=== PATIENT | female | born 1975 | race Caucasian/White ===

== ENCOUNTER → 2020-10-04 07:52 | Outpatient (BNVA) | payer OTHER, SELFPAY | PROVIDERS: PCP Internal Medicine; Referring Provider Internal Medicine; Visit Provider Surgery | DX: Z76.89 Persons encountering health services in other specified circumstances (principal) ==

== ENCOUNTER 2020-10-09 09:17 | Outpatient (REF) | payer OTHER, SELFPAY ==
--- NOTE | 2020-10-09 09:50 | ECG_ITS ---
Test Reason : MORBID OBESITY Blood Pressure : / mmHG Vent. Rate : 059 BPM Atrial Rate : 059 BPM P-R Int : 150 ms QRS Dur : 100 ms QT Int : 426 ms P-R-T Axes : 035 036 019 degrees QTc Int : 421 ms Sinus bradycardia Otherwise normal ECG No previous ECGs available Referred By: Alirio Brock Electronically Signed By:LAMONTE ACEVEDO MD
[2020-10-09 10:18] LABS: MANUAL DIFF FLAG NO
--- NOTE | 2020-10-09 10:19 | XR_ITS ---
EXAMINATION: XR CHEST CLINICAL INFORMATION: Morbid obesity COMPARISON: None TECHNIQUE: 2 views of the chest were obtained. FINDINGS: The cardiac and mediastinal contours are normal. The lungs are clear. There is no pleural effusion or pneumothorax. There are degenerative changes of the spine. XR/XR chest 2V IMPRESSION: No evidence for acute disease in the chest.
[2020-10-09 10:24] LABS: Basophils Absolute Auto 0.1 X10*3/uL (0.0-0.2); Basophils Percent Auto 0.6 % (0-2); Eosinophils Absolute Auto 0.4 X10*3/uL (0.0-0.4); Eosinophils Percent Auto 3.5 % (0-4); Hematocrit 42.5 % (37-47); Hemoglobin 13.6 g/dl (12.0-16.0); Imm Gran Abs Auto 0.04 X10*3/uL (0.00-0.03); Imm Gran Pct Auto 0.4 % (0.0-0.4); Lymphocytes Absolute Auto 2.9 X10*3/uL (1.2-4.9); Lymphocytes Percent Auto 28.1 % (20-40); Mean Corpuscular Volume 81.3 fL (80-98); Mean Platelet Volume 9.6 fL (9.4-12.3); Monocytes Absolute Auto 0.9 X10*3/uL (0.1-1.2); Monocytes Percent Auto 8.3 % (2-11); Neutrophils Absolute Auto 6.1 X10*3/uL (2.0-8.3); Neutrophils Percent Auto 59.1 % (45-73); Platelet Count 270 X10*3/uL (160-400); Red Blood Count 5.23 X10*6/uL (4.20-5.50); Red Cell Distribution Width 14.1 % (11.0-16.0); White Blood Count 10.3 X10*3/uL (4.8-10.8)
[2020-10-09 11:06] LABS: Alanine Aminotransferase 50 U/L (0-31); Albumin Level 4.3 g/dL (3.5-5.0); Alkaline Phosphatase 87 U/L (39-117); Anion Gap 13 (12-20); Aspartate Amino Transferase 39 U/L (5-31); Bilirubin Total 0.6 mg/dL (0.0-1.0); Blood Urea Nitrogen 13 mg/dL (9-16); C Reactive Protein 4.51 mg/dL (< or = 0.50); Carbon Dioxide 29 mmol/L (22-29); Chloride 102 mmol/L (96-108); Cholesterol 150 mg/dL; Estimated Glomerular Filt Rate > 60; Glucose Random 89 mg/dL (60-115); HDL Cholesterol 36 mg/dL; Iron 41 mcg/dL (30-160); LDL Cholesterol Calculated 102 mg/dl; Percent Iron Saturation 14 % (15-50); Sodium 140 mmol/L (135-145); Total Iron Binding Capacity 289 mcg/dL (228-428); Triglycerides 61 mg/dL; Unsaturated Iron Binding 248 ug/dL
[2020-10-09 11:28] LABS: Ferritin 387 ng/mL (10-250); TSH reflex Free T4 0.99 mIU/mL (0.32-4.0)
[2020-10-09 11:30] LABS: Estimated Average Glucose 123 mg/dL; Hemoglobin A1c % 5.9 %
[2020-10-09 12:03] LABS: Folate > 20.0 ng/mL (> or = 4.0); Vitamin B12 505 pg/mL (200-900)
[2020-10-10 12:17] LABS: Insulin Level Total 6.6 uIU/mL
[2020-10-12 02:41] LABS: Zinc 92 mcg/dL (60-130)
[2020-10-14 02:47] LABS: Vitamin A 49 mcg/dL (38-98)
[2020-10-16 19:09] LABS: Vitamin B1 13 nmol/L (8-30)
== END 2020-10-09 09:18 | disposition home or self-care (01) ==
LOC: HO.LAB 09:17
PROVIDERS: PCP Internal Medicine; Visit Provider Surgery
DX: E66.01 Morbid (severe) obesity due to excess calories (principal); I10 Essential (primary) hypertension; J45.909 Unspecified asthma, uncomplicated
CPT/HCPCS: 36415; 71046; 80053; 80061; 82607; 82728; 82746; 83036; 83525; 83540; 84425; 84443; 84590; 84630; 85025; 86140; 93005

== ENCOUNTER → 2020-10-13 08:20 | Outpatient (BNVA) | payer OTHER, SELFPAY | PROVIDERS: PCP Internal Medicine; Referring Provider Internal Medicine; Visit Provider Dietitian, Registered | DX: Z76.89 Persons encountering health services in other specified circumstances (principal) ==

== ENCOUNTER → 2020-10-23 07:31 | Outpatient (BNVA) | payer OTHER, SELFPAY | PROVIDERS: PCP Internal Medicine; Visit Provider Surgery | DX: Z76.89 Persons encountering health services in other specified circumstances (principal) ==

== ENCOUNTER 2020-10-31 08:28 | Outpatient (REF) | payer OTHER, SELFPAY ==
--- NOTE | 2020-10-31 08:31 | FL_ITS ---
EXAMINATION: XR GI SERIES CLINICAL INFORMATION: Preop gastric sleeve. Obesity. COMPARISON: None TECHNIQUE: Upper GI was performed using thick barium and effervescent granules. FINDINGS: Esophageal motility is normal. There is a small hiatal hernia and Schatzki ring. There is gastroesophageal reflux. The stomach and duodenum are normal-appearing. No fold thickening, mass, ulcer or stricture is seen. FLUOROSCOPY TIME: 0.6 minutes DOSE AREA PRODUCT: 7.6 ramos per centimeter squared. 28 saved fluoroscopic images. FL/FL upper GI series IMPRESSION: Small hiatal hernia with Schatzki ring. Gastroesophageal reflux.
--- NOTE | 2020-10-31 08:33 | US_ITS ---
EXAMINATION: US COMPLETE ABDOMEN WITH LIVER ELASTOGRAPHY CLINICAL INFORMATION: Moderate severe obesity DEXA scan arteries. COMPARISON: None. TECHNIQUE: Real-time imaging of the abdominal viscera. Noninvasive ultrasound liver fibrosis assessment is performed using Lora ElastPQ point quantification shear wave elastography (pSWE) with a 5 MHz transducer. Multiple elastography samples are obtained. FINDINGS: PANCREAS: The visualized pancreatic head and body are normal in appearance. The tail of the pancreas is obscured from visualization by the overlying bowel gas. ABDOMINAL AORTA: The proximal, middle, and distal aortic segments are normal in caliber. INFERIOR VENA CAVA: Visualized portions are normal. LIVER: The liver demonstrates normal size, contour and increased echogenicity. No focal lesion or intrahepatic biliary duct dilatation. The right lobe measures 14.2 cm in length. The left lobe measures 11.3 cm in length. There is normal hepatopedal flow seen in the portal vein on Doppler exam. Shear wave elastography provides a median stiffness of 1.48 m/s (reference: normal median stiffness is 0.81 - 1.22 m/s). The IQR/median stiffness to assess sampling precision is 0.20 (reference: optimal IQR/median stiffness is under 0.3). GALLBLADDER: The bladder has been surgically removed. COMMON BILE DUCT: Normal in caliber measuring 0.5 cm in diameter. RIGHT KIDNEY: Normal. No hydronephrosis. No renal calculi or focal parenchymal lesions. The kidney measures 11.6 cm in maximum dimension. LEFT KIDNEY: Normal. No hydronephrosis. No renal calculi or focal parenchymal lesions. The kidney measures 11.5 cm in maximum dimension. SPLEEN: Normal. The spleen measures 11.0 cm in maximum dimension. FREE FLUID: None. US/US abdomen comp w elastography IMPRESSION: 1. Hepatic steatosis without focal lesion. Rest of the abdominal ultrasound is unremarkable. 2. Elastography: [id number] fibrosis with score F2-F3.
--- NOTE | 2020-10-31 09:48 | CA_ITS ---
Transthoracic Echocardiogram Patient (Last, First, Middle): Nora Wayne, Gender: Female Date of : 1975 Age: 45 Procedure Date: 10/31/2020 Procedure Type: Transthoracic Echocardiogram Location: OP Height: 157.48 cm Weight: 107.05 kg BSA: 2.05 m2 Heart Rate: bpm BP: 143 / 85 mmHg Primary Health Care Nurse: URI Referring MD: Alirio Brock MD Base Brander: Ottoniel Turner MD Symptoms: E66.01 - Morbid (severe) obesity due to excess calories Study Quality: Fair ECG Rhythm: Sinus Conclusions: - Essentially normal study Findings Left Ventricle Normal left ventricular size, thickness, and systolic function. The visually estimated ejection fraction is between 60-65%. Diastolic function is normal for age. Right Ventricle Normal right ventricular cavity size and systolic function. Atria Both atria are normal in size. Interatrial shunt cannot be excluded. Aortic Valve The aortic valve structure and function is likely normal. There is no aortic valve stenosis. There is no aortic valve regurgitation. Mitral Valve Normal mitral valve structure and function. There is no mitral valve regurgitation. There is no mitral valve stenosis. Pulmonic Valve The pulmonic valve was not well visualized. Tricuspid Valve Likely normal tricuspid valve structure and function. There is trace tricuspid valve regurgitation. The right ventricular systolic pressure is normal. The right ventricular systolic pressure is 23 mmHg. Normal right atrial pressure. There is no evidence of pulmonary hypertension. Great Vessels All visible segments of the aorta are normal in size. The pulmonary artery was not well visualized. Venous The inferior vena cava is normal in size and collapses greater than 50% with inspiration. Pericardium/Pleural There is no evidence of pericardial effusion. Prior Study Comparison No prior study available for comparison. Measurements 2D Linear Measurements IVSd: 1.10 0.6-0.9/0.6-1.0 cm LVIDd: 4.14 3.9-5.3/4.2-5.9 cm LVIDd Index: 2.02 2.4-3.2/2.2-3.1 cm/m2 LVIDs: 2.52 2.0-3.6 cm LVPWd: 1.00 0.7-1.1 cm LA Diam: 3.70 2.7-3.8/3.0-4.0 cm LAIDs Index: 1.80 1.5-2.3 cm/m2 LV Mass: 178.65 67-162/88-224 g LV Mass Index: 87.15 43-95/49-115 g/m2 LVOT Diam: 2.00 3.0+(-)1.3 cm 2D Systolic Function EF 4C: 61.70 >55% EF 2C: 61.40 >55% EF BiP: 61.70 >55% Mitral Valve MV Pk E: 0.99 MV PK A: 0.88 MV Decel Time: 256.00 E/A: 1.10 E'Lateral: 8.03 E'Medial: 8.90 E/E' Med: 11.10 E/E' Lat: 12.30 PHT: 75.00 MVA PHT: 2.93 Decel Baker: 3.84 Aortic Valve AoV Pk Vinny: 1.64 AoV Pk Grad: 11.00 LVOT LVOT Pk Vinny: 1.14 LVOT Mn Vinny: 0.77 LVOT VTI: 0.26 LVOT Pk Grad: 5.00 LVOT Mn Grad: 3.00 LVOT Diam: 2.00 LVOT Area: 3.14 Diastolic Function MV Pk E: 0.99 MV Pk A: 0.88 E/A: 1.10 E'Medial: 8.90 E/E' Med: 11.10 E' Laterial: 8.03 E/E' Lat: 12.30 Tricuspid Valve TR Pk Vinny: 2.23 TR Pk Grad: 20.00 RA Press: 3.00 RVSP: 23.00 Great Vessels Aorta Ao Asc: 2.90 2.1-3.4 cm Updated in Other Vendor System with Status of Final Ottoniel Turner MD electronically signed on 11/01/2020 3:47:57 PM with status of Final
== END 2020-10-31 08:29 | disposition home or self-care (01) ==
LOC: HO.US 08:28
PROVIDERS: PCP Internal Medicine; Visit Provider Surgery
DX: Z01.818 Encounter for other preprocedural examination (principal); I10 Essential (primary) hypertension; J45.909 Unspecified asthma, uncomplicated; E66.01 Morbid (severe) obesity due to excess calories
CPT/HCPCS: 74240; 76705; 76981; 93306

== ENCOUNTER → 2020-11-03 08:35 | Outpatient (BNVA) | payer OTHER, SELFPAY | PROVIDERS: PCP Internal Medicine; Referring Provider Internal Medicine; Visit Provider Dietitian, Registered | DX: Z76.89 Persons encountering health services in other specified circumstances (principal) ==

== ENCOUNTER 2020-11-06 08:13 | Outpatient (REF) | payer OTHER, SELFPAY ==
[2020-11-08 18:57] LABS: H Pylori Breath Test NOT DETECTED (NOT DETECTED)
== END 2020-11-06 08:14 | disposition home or self-care (01) ==
LOC: HO.LNP 08:13
PROVIDERS: PCP Internal Medicine; Visit Provider Physician Assistant
DX: A04.8 Other specified bacterial intestinal infections (principal)
CPT/HCPCS: 83013

== ENCOUNTER → 2020-11-15 08:24 | Outpatient (BNVA) | payer OTHER, SELFPAY | PROVIDERS: PCP Internal Medicine; Visit Provider Surgery | DX: Z76.89 Persons encountering health services in other specified circumstances (principal) ==

== ENCOUNTER → 2020-11-29 08:19 | Outpatient (BNVA) | payer OTHER, SELFPAY | PROVIDERS: PCP Internal Medicine; Visit Provider Surgery | DX: Z76.89 Persons encountering health services in other specified circumstances (principal) ==

== ENCOUNTER 2020-11-30 07:56 | Outpatient (REF) | payer OTHER, SELFPAY ==
[2020-11-30 08:33] LABS: MANUAL DIFF FLAG NO
[2020-11-30 08:35] LABS: Basophils Percent Auto 0.3 % (0-2); Eosinophils Absolute Auto 0.3 X10*3/uL (0.0-0.4); Eosinophils Percent Auto 3.4 % (0-4); Hemoglobin 13.8 g/dl (12.0-16.0); Imm Gran Abs Auto 0.04 X10*3/uL (0.00-0.03); Imm Gran Pct Auto 0.4 % (0.0-0.4); Lymphocytes Absolute Auto 2.2 X10*3/uL (1.2-4.9); Lymphocytes Percent Auto 23.3 % (20-40); Mean Corpuscular HGB Conc 31.4 g/dl (31.0-35.0); Mean Corpuscular Hemoglobin 25.5 pg (27.0-33.0); Mean Corpuscular Volume 81.3 fL (80-98); Mean Platelet Volume 10.4 fL (9.4-12.3); Monocytes Absolute Auto 0.7 X10*3/uL (0.1-1.2); Monocytes Percent Auto 7.5 % (2-11); Neutrophils Absolute Auto 6.3 X10*3/uL (2.0-8.3); Neutrophils Percent Auto 65.1 % (45-73); Platelet Count 263 X10*3/uL (160-400); Red Blood Count 5.41 X10*6/uL (4.20-5.50); Red Cell Distribution Width 14.3 % (11.0-16.0); White Blood Count 9.6 X10*3/uL (4.8-10.8)
[2020-11-30 08:44] LABS: Estimated Average Glucose 108 mg/dL; Hemoglobin A1c % 5.4 %
[2020-11-30 08:47] LABS: INTERNATIONAL NORM RATIO 1.1 (0.9-1.1); Prothrombin Time 13.2 SEC (10.8-13.0)
[2020-11-30 08:50] LABS: Partial Thromboplastin Time 36.2 SEC (24.1-38.0)
[2020-11-30 09:40] LABS: Alanine Aminotransferase 37 U/L (0-31); Albumin Level 4.2 g/dL (3.5-5.0); Alkaline Phosphatase 86 U/L (39-117); Anion Gap 12 (12-20); Aspartate Amino Transferase 30 U/L (5-31); Bilirubin Total 0.5 mg/dL (0.0-1.0); Blood Urea Nitrogen 13 mg/dL (9-16); C Reactive Protein 4.01 mg/dL (< or = 0.50); Calcium 9.1 mg/dL (8.4-10.2); Carbon Dioxide 32 mmol/L (22-29); Chloride 102 mmol/L (96-108); Cholesterol 140 mg/dL; Estimated Glomerular Filt Rate > 60; Glucose Random 115 mg/dL (60-115); HDL Cholesterol 32 mg/dL; LDL Cholesterol Calculated 86 mg/dl; Potassium 4.2 mmol/l (3.3-5.1); Sodium 142 mmol/L (135-145); Total Protein 6.8 g/dL (6.5-8.0); Triglycerides 110 mg/dL
[2020-11-30 09:54] LABS: TSH reflex Free T4 1.49 mIU/mL (0.32-4.0)
[2020-12-01 09:22] LABS: Insulin Level Total 11.6 uIU/mL
== END 2020-11-30 07:57 | disposition home or self-care (01) ==
LOC: HO.LAB 07:56
PROVIDERS: PCP Internal Medicine; Visit Provider Surgery
DX: I10 Essential (primary) hypertension (principal); K21.9 Gastro-esophageal reflux disease without esophagitis; G47.30 Sleep apnea, unspecified; E66.01 Morbid (severe) obesity due to excess calories
CPT/HCPCS: 36415; 80053; 80061; 83036; 83525; 84443; 85025; 85610; 85730; 86140

== ENCOUNTER 2020-12-07 06:25 | Inpatient (IN) | payer OTHER, SELFPAY ==
[2020-11-28 10:47] VITALS: BMI 41.7
--- NOTE | 2020-12-05 14:56 | P.CONAN_ITS ---
Documented by User: Daisy Rosetta 12/05/20 14:58 HPI - Anesthesia Eval Consult details Narrative: 45yo F for Gastrectomy Sleeve PMFSH Past Medical History Medical History Arthritis Asthma Back pain Degenerative joint disease Depression GERD (gastroesophageal reflux disease) History of anxiety Hypertension Positive H. pylori test Sleep apnea with use of continuous positive airway pressure (CPAP) Family History Family History Mother Asthma Hypertension Diabetes HX: breast cancer Father No problems noted. Sister No problems noted. Daughter No problems noted. Son Asthma Surgical History Surgical History H/O umbilical hernia repair History of endometrial ablation Hx of section Hx of cholecystectomy Morbid obesity Social History Social History Household Members: Family Are you a primary healthcare account manager to a significant other at home: No Do you presently have visiting nurse or other home services: No Alcohol intake: current Alcohol intake frequency: a few times a month Smoking Status: Never smoker Use of substances other than those prescribed or required for medical reasons: No Have you been hit, kicked, punched, or otherwise hurt by someone within the past year? If so, by whom?: No Advance Directives: No Advance Directives Information Provided: No Recently lost weight without trying: No Meds Allergies Allergy/AdvReac Type Severity Reaction Status Date / Time No Known Allergies Allergy Verified 11/29/20 11:16 Home Medications Medication Instructions Recorded Confirmed Type albuterol sulfate 90 mcg/actuation 2 puff INHALATION Q6H PRN 10/04/20 11/28/20 History aerosol inhaler loratadine 10 mg capsule 10 mg PO DAILY 10/04/20 11/28/20 History multivitamin,au-xslu-flebiabl 1 tab PO DAILY 10/04/20 11/28/20 History nebivolol 10 mg tablet 10 mg PO DAILY 10/04/20 11/28/20 History venlafaxine 150 mg 150 mg PO DAILY 10/04/20 11/28/20 History capsule,extended release 24 hr Exam Exam Date and Time: December 05, 2020 1456 Height,Weight and Vital Signs: Height 5 ft 2 in Weight 103.419 kg Pertinent Lab Results Pertinent Lab Results: Laboratory Tests 11/30/20 08:10 Blood Type O Positive Antibody Screen NEGATIVE Laboratory Tests 11/30/20 11/30/20 11/30/20 08:10 08:10 08:10 WBC 9.6 Hgb 13.8 Hct 44.0 Plt Count 263 PT 13.2 H INR 1.1 APTT 36.2 Sodium 142 Potassium 4.2 Chloride 102 Carbon Dioxide 32 H BUN 13 Creatinine 0.68 Hemoglobin A1c % TSH 1.49 11/30/20 08:10 WBC Hgb Hct Plt Count PT INR APTT Sodium Potassium Chloride Carbon Dioxide BUN Creatinine Hemoglobin A1c % 5.4 TSH Narrative Narrative: EKG SB@59 ECHO: essentially nml study Assessment and Plan Assessment Anesthesia Assessment: Chart Reviewed Documented by User: Emery Andre MD 12/07/20 07:55 PMFSH Past Medical History Medical History Arthritis Asthma Back pain Degenerative joint disease Depression GERD (gastroesophageal reflux disease) History of anxiety Hypertension Positive H. pylori test Sleep apnea with use of continuous positive airway pressure (CPAP) Family History Family History Mother Asthma Hypertension Diabetes HX: breast cancer Father No problems noted. Sister No problems noted. Daughter No problems noted. Son Asthma Surgical History Surgical History H/O umbilical hernia repair History of endometrial ablation Hx of section Hx of cholecystectomy Morbid obesity Social History Social History Household Members: Family Are you a primary healthcare account manager to a significant other at home: No Do you presently have visiting nurse or other home services: No Alcohol intake: current Alcohol intake frequency: a few times a month Smoking Status: Never smoker Use of substances other than those prescribed or required for medical reasons: No Have you been hit, kicked, punched, or otherwise hurt by someone within the past year? If so, by whom?: No Advance Directives: No Advance Directives Information Provided: No Recently lost weight without trying: No Meds Allergies Allergy/AdvReac Type Severity Reaction Status Date / Time No Known Allergies Allergy Verified 11/29/20 11:16 Home Medications Medication Instructions Recorded Confirmed Type albuterol sulfate 90 mcg/actuation 2 puff INHALATION Q6H PRN 10/04/20 11/28/20 History aerosol inhaler loratadine 10 mg capsule 10 mg PO DAILY 10/04/20 11/28/20 History multivitamin,hf-whin-tioeofms 1 tab PO DAILY 10/04/20 11/28/20 History nebivolol 10 mg tablet 10 mg PO DAILY 10/04/20 11/28/20 History venlafaxine 150 mg 150 mg PO DAILY 10/04/20 11/28/20 History capsule,extended release 24 hr Exam Airway Mallampati Class: II TM Dist: >3cm Neck ROM: Full Loose/Missing/Broken Teeth: No Heart: RRR Lungs: NL Other: AO Assessment and Plan Assessment Anesthesia Assessment: Anesthesia Plan Discussed Final Anesthetic Review NPO: Yes ASA Class: III Final Preanesthetic Review: No Changes in Pt Med Stat, Meds/Allgs Chart Reviewed, Consent Obtained/Reviewed and Anes Risks/Benef Reviewed Patient Risk: Intermediate Procedure Risk: Intermediate Anesthetic Plan Anesthetic Plan: GA Disposition: Standard PACU
[2020-12-07] VITALS (22 sets, daily range): BP systolic 107–142; BP diastolic 63–102; PULSE 54–80; RESP 12–18; TEMP 36.2–36.8; O2SAT 92–100
--- NOTE | 2020-12-07 | XR_ITS ---
EXAMINATION: XR CHEST CLINICAL INFORMATION: Hypoxia COMPARISON: Chest radiographs 10/09/2020 TECHNIQUE: Portable upright AP view of the chest was obtained. FINDINGS: There is coarsening of the bronchiolar markings. There are questionable early groundglass opacity left perihilar region. There is no lobar or segmental airspace consolidation or effusion. The vascularity is normal. The heart is within normal size. The hilar and mediastinal contours are unremarkable. No visible acute bony abnormality. XR/XR chest 1V IMPRESSION: 1. Coarsening bronchiolar markings with questionable early groundglass opacity left perihilar region. Finding could be related to viral pneumonia. 2. No lobar or segmental airspace consolidation or effusion.
--- NOTE | 2020-12-07 | CT_ITS ---
EXAMINATION: CT ANGIOGRAM OF THE CHEST WITH AND WITHOUT CONTRAST (CT PULMONARY ANGIOGRAM FOR PE) CLINICAL INFORMATION: Rule out PE, evaluate for viral PNA based on CXR/ground glass . History of sleeve gastrostomy this morning. COMPARISON: Question of PE and viral pneumonia. TECHNIQUE: Prior to contrast administration, noncontrast localization images were obtained. Subsequently, multidetector volumetric imaging was performed from the thoracic inlet to below the diaphragms following the administration of 80 mL Omnipaque 350 intravenous contrast. No contrast reaction reported. Sagittal, coronal, and MIP oblique sagittal reformatted images were obtained on the CT workstation, uploaded to PACS, and reviewed. This CT examination was performed using dose optimization techniques as appropriate, variously including the following: *Automated exposure control *Adjustment of mA and/or kV according to patient size (this includes techniques or standardized protocols for targeted exams where dose is matched to indication/reason for exam; i.e. extremities or head) *Use of iterative reconstruction technique Total exam dose-length product 369 mGy-cm. FINDINGS: QUALITY OF STUDY/CONTRAST BOLUS: Satisfactory. PULMONARY ARTERIES: No central or segmental pulmonary emboli. THORACIC AORTA: No aneurysm or dissection. LUNG: Multiple areas of patchy ground-glass changes are noted throughout the lungs with involvement of all lobes. Changes are most marked in both upper lobes. Findings are consistent with COVID-19 infection. PLEURA: No pleural effusion or pneumothorax. MEDIASTINUM: Normal heart size. No pericardial effusion. No hilar or mediastinal lymphadenopathy. No evidence of septal bowing or right heart strain. CHEST WALL/AXILLA: Subcutaneous emphysema is noted in the lower right chest wall and anterior right abdominal wall. A tiny amount of air is seen between the rectus muscles in the right upper quadrant. No mediastinal emphysema is seen. One small foci of air is seen anterior to the liver, possibly in the peritoneal cavity (or extraperitoneal), although no other intra-abdominal air is seen. All of this area is most likely secondary to recent gastric surgery. OSSEOUS STRUCTURES: No acute or suspicious osseous abnormality. UPPER ABDOMEN: Status post cholecystectomy. No ascites is seen. There is probable hepatic steatosis. Findings related to the recent gastric sleeve are present. No reflux of contrast into the hepatic veins to suggest elevated right heart pressures. CT/CT angio chest PE protocol IMPRESSION: No evidence of pulmonary emboli. Diffuse ground-glass change highly suggestive of COVID-19 pulmonary disease. Right-sided subcutaneous emphysema with question of one small foci of air beneath the hemidiaphragm related to recent surgery. VTE: Negative. This critical result was discussed with ANDRESSA Mendoza at 7:34 PM today and it was ascertained that the content and urgency of the report was understood at the time of direct communication.
[2020-12-07 06:33] LABS: UPreg QC Valid YES; Urine Pregnancy NEGATIVE (NEGATIVE)
[2020-12-07 06:43] LABS: COVID-19 Test Negative (Negative); IDNOW Serial# 9DD0AD1C
[2020-12-07] MEDS: Lactated Ringers 1,000 ML 100 ML IVCONT (07:01)
--- NOTE | 2020-12-07 07:15 | MHC.SHP ---
Pre-Procedural Eval Section A The patient is an INPATIENT: Yes The History & Physical has been completed within 30 days and I have reviewed it.: Yes Section B Chief Complaint: POST OP SLEEVE Details of Present Illness: obesity Relevant Family History (Specify if Yes): No Relevant Social History: None Present Medications: see Short Stay Collaborative assessment Medical History: No relevant PMH History of Previous Operations: No relevant previous surgery Allergies: Allergies Allergy/AdvReac Type Severity Reaction Status Date / Time No Known Allergies Allergy Verified 11/29/20 11:16 Review of Systems Sugical H&P ROS: Negative: Constitution, Cardiovascular, Respiratory, Neurological, Psychiatric, Hem-Onc, Allergic/Immunologic, Gastrointestinal, Genitourinary, Musculoskeletal, Integumentary, Endocrine and Eyes/Ears/Nose/Throat Exam Surgical H&P Exam: Normal: HEENT, Normal: Heart, Normal: Lungs, Normal: Extremities, Normal: Abdomen, Normal: Skin and Normal: Neurological Plan Diagnosis/Plan: Unchanged I have reviewed the history and physical and performed a pertinent physical examination on my patient. No changes have occurred unless specified.
--- NOTE | 2020-12-07 10:06 | P.BOP_ITS ---
Brief Operative Note Date of Service: 12/07/20 Pre-op diagnosis: Morbid obesity and comorbidities (see below) Post-op diagnosis: same (Diaphragmatic hernia and adhesions) Procedure: INITIAL PATIENT BMI ON PRESENTATION AT OUR OFFICE: 46 kg/m2 LAST BMI BEFORE SURGERY: 41.5 kg/m2 COMORBIDITIES: GERD, sleep apnea on CPAP, hypertension, asthma, depression, diaphragmatic hernia, liver steatosis, liver fibrosis, degenerative joint disease The patient participated in an intensive weekly lifestyle intervention and exercise program during which the patient has lost between the initial office visit and the last preoperative visit 31lbs, or 11.3% of initial actual body weight. The patient met the BMI-criteria for bariatric surgery based on the BMI on initial presentation. The patient should not be penalized for achieving such weight loss because it is not sustainable long-term without surgical intervention and it was achieved in preparation for bariatric surgery under my direction and based on my published research ([email or web address] and [email or web address]) that a 10% preoperative weight loss improves long-term weight loss after surgery and reduces perioperative complications. Insurance carriers such as [facility] have endorsed my recommendations and have included in their policies criteria to include a 10% preoperative weight loss requirement. PROCEDURE: Esophago-gastroscopy, laparoscopic repair of incarcerated diaphragmatic hernia, laparoscopic lysis of adhesions, laparoscopic sleeve gastrectomy and laparoscopic gastropexy INDICATIONS: This is a 45 year-old female who was electively scheduled for laparoscopic, possibly open sleeve gastrectomy. The risks and complications of the procedure were discussed with the patient in advance, particularly the possibility of ; pulmonary embolism; staple line leak; bleeding; GERD; cardiac, pulmonary, or renal complications; as well as long-term problems such as insufficient weight loss, vitamin deficiency, strictures, or ulcers. The patient understood all the risks, and was in agreement to proceed with surgery. DESCRIPTION OF PROCEDURE: After informed consent was obtained from the patient, the patient was given preoperative antibiotics, and was transferred to the operating room. After successful induction of general anesthesia, pneumatic compressive devices were placed on both lower extremities. An upper endoscopy was performed next. The oropharynx and esophagus appeared to be within normal limits. There was a diaphragmatic hernia present of moderate size consistent with the findings of the preoperative upper GI. The stomach was entered. Then after all fluid and air were suctioned and the stomach was fully decompressed, the scope was withdrawn and secured in the mid esophagus. The patient was then prepped and draped in the usual sterile manner, and abdominal access was established at the right upper quadrant with the Wayne technique. A 12 mm blunt port was inserted, and the abdomen was insufflated with CO2 to a pressure of 15 mmHg. Under direct visualization, additional ports were placed, specifically two 5 mm Versi-step ports to the left upper quadrant, and a 5 mm Versi-Step port to the right upper quadrant. 1% lidocained plan was used to infiltrate all port sites as well as all fascia defects. Using the EndoClose suture passer device, we placed a #1 Polysorb tie across the falciform ligament in order to retract it up against the abdominal wall and prevent injury of the ligament with our instruments during the procedure. There were adhesions in the abdomen from previous C-sections and cholecystectomy involving the omentum and the left anterior abdominal wall. Those were lysed completely with the ultrasonic device (Thunderbeat, Olympus). Following that, the patient was placed in a steep reverse Trendelenburg position. An additional 5 mm port was placed to the right flank for the Mediflex retractor that was used to retract the left lobe of the liver. The gastro-esophageal fat pad was opened with the ultrasonic device (Thunderbeat, Olympus) and the anterior esophagus and hiatus were exposed. The angle of His was opened with the ultrasonic device the fundus of the stomach from any diaphragmatic and splenic attachments. I then opened the gastrocolic ligament between the transverse colon and the greater curvature of the stomach with the ultrasonic device to enter the lesser sac and facilitate the ligation of the short gastric vessels. I started at a mid-point along the greater curvature and using the Thunderbeat, all short varghese sparkle vessels were divided all the way to the angle of His until the left michelle was completely dissected at its entirety. I then divided the gastro-colic ligament distally to a distance of about 3-4 cm proximal to the esophagus. There were extensive congenital adhesions between the pancreas and posterior gastric wall. Those were lysed completely with the ultrasonic device. Adhesiolysis took approximately 45 min to complete. There was an obvious significant-sized hiatal hernia. I continued dissecting along the hiatus toward the left michelle and the angle of His. I fully mobilized the fat pad that was incarcerated in the hernia. I then continued by dissecting even further into the posterior retro-esophageal space all the way to the angle of His. I continued to mobilize the esophagus into the mediastinum circumferentially. Both vagal nerves were seen and preserved. The right michelle was also mobilized completely At that point, I was able to have at least 3 to 5 cm of esophagus into the abdomen. After I completely mobilized the esophagus from both the left and right michelle and I had a good mobilization of the esophagus circumferentially, I closed the hernia defect with three interrupted #0 Surgidac suture using the Endo Stitch device, two of which were placed posterior to and one anterior to the esophagus. The stomach was then divided transversely with one Endo KELVIN-45 purple and four KELVIN-60 articulating purple loads using the Predictivez stapler and loads. Every effort was made that the gastric sleeve had a tubular shape and an even caliber throughout. Once the sleeve resection was completed, the staple line of the gastric sleeve was reinforced with Hemoclips. The resected stomach was retrieved without difficulty from the Wayne port. A gastropexy was then performed in order to prevent postoperative GERD and partial gastric volvulus. Several interrupted 2.0 Surgidac sutures were placed between the sleeve's staple line and the previously divided greater omentum and gastro-colic ligament using the Endo-Stitch device. An upper endoscopy was performed. There was no narrowing at the GE junction. The scope was easily advanced all the way to the pylorus which was clearly visua lized. There was no narrowing anywhere and the sleeve's caliber was even throughout. The sleeve's staple line was inspected and there was no evidence of ischemia, bleeding or dehiscence. At that point the gastroscope was withdrawn from the patient?s mouth while we were decompressing the bowel and the stomach from any remaining air. I looked into the lesser sac to see how the sleeve was situating and it was situating well. There was no bleeding from the staple line, spleen, or short gastric vessels. The Mediflex retractor was removed, and the undersurface of the liver was inspected and there was no bleeding. The patient was placed in supine position. I closed the fascial defect of the 12 mm port site with a figure of eight #1 Polysorb suture. Then 100 cc 0.25 % Marcaine plain with 10 mg of Dexamethasone were used to infiltrate the fascial closure as well as all skin incisions. At this point, the abdomen was deflated, all ports were removed under direct vision, and no bleeding was noted from any of the port sites. The skin incisions were irrigated with saline and were closed with 4-0 absorbable monofilament sutures. Steri-Strips and OpSites were used to cover all incisions. The patient was extubated and was transferred in stable condition to the recovery room for further care. I was present and performed all jeter parts of the procedure. Ms. Romo was the first aid trainer. There were no residents to assist with this case. Mike Brock MD, PhD, FACS Surgeon: Alirio Brock MD Anesthesia: GETA, local and other (TAP block) Tool Trouble Shooter: Natali Romo Estimated blood loss (mL): 10 IV fluids (mL): 2,500 Urine output (mL): 0 (No Martines to record) Pathology: other (stomach) Condition: stable Disposition: PACU
--- NOTE | 2020-12-07 10:13 | PM.PNGS ---
Subjective Subjective Date of Service: 12/08/20 Interval history: Patient has very mild incisional pain. The patient was able to ambulate and use the incentive spirometer. Tolerating liquids very well. Due to acute hypoxia immediately after extubation a CXR was performed which showed an early bilateral brochial infilatrate. A CT chest was ordered that showed no PE and a bilateral upper lobe infiltrate. Repeat Covid-19 was negative. Got better overnight and is not SOB on room air. An exercise O2 sat test will be performed in preparation for discharge today. Physical Exam Vital Signs: Vital Signs: Last Vital Signs Temp 98.2 F 12/07/20 06:35 Pulse 60 12/07/20 06:35 Resp 16 12/07/20 06:35 BP 129/75 12/07/20 06:35 Pulse Ox 98 12/07/20 06:35 Body Mass Index 41.7 GI: Inspection: Yes normal to inspection, Yes incision (clean and intact) and Yes obesity Extrem: Right lower extremity: normal to inspection (no calf tenderness) Left lower extremity: normal to inspection (no calf tenderness) Progress Note: A&P Assessment and plan (1) Morbid obesity: Status: Acute (2) Hypertension: Status: Acute (3) Sleep apnea with use of continuous positive airway pressure (CPAP): Status: Acute (4) Depression: Status: Acute (5) Asthma: Problem details: controlled-has prn inhaler-has not needed to use recently Status: Acute (6) GERD (gastroesophageal reflux disease): Problem details: asympotomatic-diagnosed during pre-op bariatric work-up per patient Status: Acute (7) Degenerative joint disease: Status: Acute (8) Diaphragmatic hernia: Status: Acute (9) Intra-abdominal adhesions: (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 Problem 1: s/p laparoscopic sleeve gastrectomy, gastropexy and lysis of adhesions Status: Doing well Plan: Check am labs, If OK, will continue phase 1 bariatric diet and discharge later today. (14) S/P repair of paraesophageal hernia: Status: Acute Fall Risk Details Current Medications: Current Medications Generic Name Dose Route Start Last Admin Trade Name Freq PRN Reason Stop Dose Admin Albuterol Sulfate 2.5 mg 12/07/20 06:10 Albuterol Sulfate (0.083%) 2.5 Mg/3 Ml Vial.Neb INHALE ONCE PRN Shortness of Breath/Wheezing Lactated Ringer's 1,000 mls @ 100 mls/hr 12/07/20 06:15 12/07/20 07:01 Lr IVCONT 100 mls/hr .Q10H SHERINE Administration Time Spent With Patient Time: Total time spent is greater than 50% in coordination of care (as documented) at patient's floor/unit and/or counseling patient: Time with patient: 25 - 35 minutes
--- NOTE | 2020-12-07 11:22 | PM.DS ---
DS: Providers Provider Date of Service: 12/08/20 Date of admission: 12/07/20 06:25 Primary care physician: Hong Patel MD DS: Diagnosis Discharge Diagnosis (1) Morbid obesity: Status: Acute (2) Hypertension: Status: Acute (3) Sleep apnea with use of continuous positive airway pressure (CPAP): Status: Acute (4) Depression: Status: Acute (5) Asthma: Status: Acute Problem details: controlled-has prn inhaler-has not needed to use recently (6) GERD (gastroesophageal reflux disease): Status: Acute Problem details: asympotomatic-diagnosed during pre-op bariatric work-up per patient (7) Degenerative joint disease: Status: Acute (8) Diaphragmatic hernia: Status: Acute (9) Intra-abdominal adhesions: (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: Status: Acute (11) Steatosis, liver: Status: Acute (12) Liver fibrosis: Status: Acute (13) S/P laparoscopic sleeve gastrectomy: Status: Acute (14) S/P repair of paraesophageal hernia: Status: Acute DS: Medications Discharge Medications Home Medications: Home Medications Medication Instructions Recorded Confirmed albuterol sulfate 90 mcg/actuation 2 puff INHALATION Q6H PRN 10/04/20 11/28/20 aerosol inhaler loratadine 10 mg capsule 10 mg PO DAILY 10/04/20 11/28/20 multivitamin,au-jabz-onakhxwj 1 tab PO DAILY 10/04/20 11/28/20 nebivolol 10 mg tablet 10 mg PO DAILY 10/04/20 11/28/20 venlafaxine 150 mg 150 mg PO DAILY 10/04/20 11/28/20 capsule,extended release 24 hr Previous Rx's Medication Instructions Recorded docusate sodium 100 mg capsule 100 mg PO BID #60 cap 11/15/20 ondansetron HCl 4 mg tablet 4 mg PO Q6H PRN #30 tab 11/29/20 pantoprazole 40 mg tablet,delayed 40 mg PO DAILY #30 tab 11/29/20 release polyethylene glycol 3350 17 gram 17 g PO DAILY #14 ea 11/29/20 oral powder packet sucralfate 100 mg/mL oral 10 ml PO BID #420 ml 11/29/20 suspension DS: Summary Time Spent with Patient Time attestation: ADMITTING DIAGNOSIS: morbid obesity, hiatal hernia, asthma, GERD, depression, HTN, JAYDON, hx h pylori infrection DISCHARGE DIAGNOSIS: same, s/p laparoscopic sleeve gastrectomy and hiatal hernia repair PAST SURGICAL HISTORY: section, repair of umbillical hernia, lap susan and endometrial ablation PROCEDURE: upper endoscopy, laparoscopic sleeve gastrectomy with gastropexy and repair of hiatal hernia DISCHARGE SUMMARY: History of Present Illness: The patient is a 45 year-old woman with a BMI of 45.1kg/m2 and associated co-morbidities as described above. The patient had extensive work-up,lost 24.2 lbs preoperatively and was electively scheduled for laparoscopic, possible open sleeve gastrectomy and gastropexy. Risks and complications of the surgery were discussed with the patient in advance, particularly the possibility of , pulmonary embolism, anastomotic leak, bleeding, bowel injury, GERD, cardiac, renal or pulmonary complications. The patient understood all the risks and was in agreement with the surgical plan. Hospital Course: The patient underwent an uneventful laparoscopic sleeve gastrectomy with gastropexy and repair of hiatal hernia on the day of admission. Pt had a prolonged extubation due to poor respiratory effort, despite albuterol inhaler and narcan x 1 - all other vital signs remained within normal limits. Postoperatively, the patient was transferred to the surgical floor. The patient was on IV Acetaminophen for pain control. Patient was started on bariatric phase 1 diet POD #0. On postoperative day one, the patient was feeling well without nausea, vomiting, fevers, or tachycardia. The patient had some mild incisional pain. The abdomen was soft. On the morning of postoperative day one, the patient was continued on 1 ounce of water or ice every half hour. During the first day, the patient did fairly well, having some incisional pain, but able to ambulate adequately and to tolerate liquids well. CXR doen in PACU whsowed some ground glass appeaarance in hilar region which was confirmed by CT chest. COVID testing was repeaated and was negative. Pt was able to wean off oxygen while in hospital and has oxygen satuartion at 99- 100% on room air while ambulating. Since the patient is doing well, we decided that the patient was ready to be discharged. The patient was given instructions to follow-up with me next week and to call my office for any fever over 101, persistent abdominal pain, nausea, vomiting, GERD, symptoms of DVT such as calf tenderness, or leg swelling, or pulmonary embolism such as chest pain or shortness of breath. The patient was also instructed to drink 40-60 ounces of liquids per day using the 1-ounce cups. The patient was given prescription for Tylenol for pain, Zofran prn for nausea, and pantoprazole and carafate. The patient was encouraged to ambulate and use the incentive spirometer. The patient was allowed to shower, but no baths, and encouraged to stay active at home. All of these instructions were given to the patient personally. All questions were answered and the patient understood all instructions, the instructions were also given to the patient in print. Total time spent providing and/or coordinating discharge services: 30 minutes Discharge coordination time: Greater than 30 minutes Physical Exam Vital Signs: Vital Signs: Last Vital Signs Temp 97.8 F 12/07/20 10:58 Pulse 66 12/07/20 11:13 Resp 16 12/07/20 11:13 BP 131/81 12/07/20 11:13 Pulse Ox 99 12/07/20 11:13 Body Mass Index 41.7 DS: Data Data Completed and Pending Pending studies at discharge: Pending at discharge 12/07/20 09:30 Surgical [PTH] Routine Labs on day of discharge: 11/30/20 08:10 Type and Screen Routine 12/07/20 06:10 Acetaminophen [Ofirmev] 1,000 mg in 100 ml IV PREOP 12/07/20 06:15 COVID-19 ID NOW (Tate) Stat Ur Preg Test Stat 12/07/20 06:37 Acetaminophen [Ofirmev] 1,000 mg in 100 ml IV As directed 12/07/20 07:01 dexAMETHasone Sod Phosphate/PF [Decadron] 10 mg .ROUTE .STK-MED ONE 12/07/20 07:09 Bupivacaine MPF 0.25 % [Sensorcaine-MPF 0.25% 10 ML] 10 ml .ROUTE .STK-MED ONE Lidocaine HCl 1 % MPF [Xylocaine 1 % MPF] 5 ml .ROUTE .STK-MED ONE 12/07/20 07:14 ceFAZolin Sodium/Dextrose,Iso [Ancef] 2 gm in 50 ml IV PREOP 12/07/20 07:15 Lactated Ringers [Lr] 1,000 ml IVCONT 999 mls/hr 12/07/20 07:24 Ketamine HCl/NS 50 mg IVPUSH .STK-MED ONE Lidocaine HCl 2 % MPF [Xylocaine 2 % MPF] 5 ml .ROUTE .STK-MED ONE Midazolam HCl/PF [Versed] 2 mg .ROUTE .STK-MED ONE Rocuronium [place] [Zemuron] 100 mg IV .STK-MED ONE propofoL [Diprivan] 200 mg IVPUSH .STK-MED ONE 12/07/20 07:25 fentaNYL citrate/PF [Sublimaze] 50 mcg .ROUTE .STK-MED ONE 12/07/20 07:29 ceFAZolin Sodium/Dextrose,Iso [Ancef] 2 gm in 50 ml .ROUTE As directed 12/07/20 07:54 dexAMETHasone sod phosphate [Decadron] 4 mg .ROUTE .STK-MED ONE ondansetron HCL [Zofran] 4 mg .ROUTE .STK-MED ONE 12/07/20 08:12 HYDROmorphone HCl [Dilaudid] 2 mg .ROUTE .STK-MED ONE 12/07/20 08:22 Sugammadex Sodium [Bridion] 200 mg IVPUSH .STK-MED ONE 12/07/20 09:51 propofoL [Diprivan] 200 mg IVPUSH .STK-MED ONE 12/07/20 10:00 Sugammadex Sodium [Bridion] 200 mg IVPUSH .STK-MED ONE 12/07/20 11:04 propofoL [Diprivan] 200 mg IVPUSH .STK-MED ONE Laboratory Last Values Urine Test NEGATIVE (NEGATIVE) 12/07/20 06:15 COVID-19 (GILDA) Negative (Negative) 12/07/20 06:15 COVID-19 Clin Com See Note 12/07/20 06:15 Blood Type O Positive 11/30/20 08:10 Antibody Screen NEGATIVE 11/30/20 08:10 Discharge Plan Discharge Anticipated Discharge Date/Time: 12/08/20 11:14 Patient Disposition: Home, Self-Care Referrals: Hong Patel MD [Primary Care Provider] - Discharge Medications: Continued venlafaxine [Effexor XR] 150 mg capsule,extended release 24hr 150 mg PO DAILY RF: 0 Bystolic 10 mg tablet 10 mg PO DAILY RF: 0 loratadine [Claritin Liqui-Gel] 10 mg capsule 10 mg PO DAILY RF: 0 albuterol sulfate [ProAir HFA] 90 mcg/actuation HFA aerosol inhaler 2 puff inhalation Q6H PRN (Reason: Shortness Of Breath) RF: 0 docusate sodium [Colace] 100 mg capsule 100 mg PO BID Qty: 60 RF: 2 pantoprazole 40 mg tablet,delayed release (DR/EC) 40 mg PO DAILY Qty: 30 RF: 2 sucralfate 100 mg/mL suspension 10 ml PO BID Qty: 420 RF: 2 ondansetron HCl [Zofran] 4 mg tablet 4 mg PO Q6H PRN (Reason: nausea and vomiting) Qty: 30 RF: 0 Discontinued Complete Multivitamin Tablet 1 tab PO DAILY RF: 0 polyethylene glycol 3350 [Miralax] 17 gram powder in packet 17 g PO DAILY Qty: 14 RF: 0 Discharge Orders: Discharge Order (Routine); Ordered 12/08/20 Ordered By: Alirio Brock Diet: other Activity on Discharge: No heavy lifting Other Ambulatory Orders: SARS-CoV2/FLU/RSV (Routine) Timeframe: 3 Days Facility: [facility] - Location: Laboratory Ordered By: Karina Alejandro SARS-CoV2/FLU/RSV (Routine) Timeframe: 3 Days Facility: [facility] - Location: Laboratory Ordered By: Sumaya Bond Activity Restrictions/Additional Instructions: No tub baths, sex or returning to work until discussed at first post op appointment. No exercise, alcohol, tobacco or illegal drug use. Continue to use incentive spirometer hourly while awake. Walk in home for 5- 10 minutes every 2 hours during the first week. Continue phase 1 diet today and start phase 2 diet tomorrow morning. Follow all instructions in the bariatric handbook and call with any questions. Visit Report Forms: Patient Portal Discharge page Care Plan Goals: weight loss Health Concerns: morbid obesity Plan of Treatment: see discharge instructions
[2020-12-07] MEDS: Famotidine/PF 20 MG/2 ML VIAL IVPUSH ×2 (11:29→21:37)
--- NOTE | 2020-12-07 11:51 | PC.NURSE ---
1145 CPAP ON NO SUPPLEMENTAL O2 NOTED OCC DESAT 88-90, MOSTLY MAINTAINING SATS AT 94-96 WITH OWN CPAP ON
[2020-12-07] MEDS: Lactated Ringers 1,000 ML 150 ML IVCONT (14:22)
[2020-12-07] MEDS: ceFAZolin Sodium/Dextrose,Iso 2 GM/50 ML PIGGYBACK IV (14:22)
[2020-12-07] MEDS: Lactated Ringers 1,000 ML 999 ML IVCONT (14:23)
[2020-12-07 15:32] LABS: Hematocrit 43.1 % (37-47); Hemoglobin 13.8 g/dl (12.0-16.0)
[2020-12-07 15:59] LABS: Anion Gap 17 (12-20); Blood Urea Nitrogen 9 mg/dL (9-16); Carbon Dioxide 23 mmol/L (22-29); Chloride 102 mmol/L (96-108); Creatinine Clr Calc Pharmacy 121.3; Estimated Glomerular Filt Rate > 60; Glucose Random 130 mg/dL (60-115); Potassium 4.2 mmol/l (3.3-5.1); Sodium 138 mmol/L (135-145)
[2020-12-07] MEDS: iohexoL 350 MG/ML 100 ML INFUS..BTL IV (18:15)
[2020-12-07] MEDS: Albuterol/Iprat 2.5/0.5MG 3 ML AMPUL.NEB INHALE (20:06)
[2020-12-07] MEDS: ondansetron HCL 4 MG/2 ML VIAL IVPUSH (21:37)
[2020-12-07 21:56] LABS: COVID-19 Test Negative (Negative); IDNOW Serial# 9DD0AD1C
[2020-12-08] MEDS: 0.9 % Sodium Chloride Flush 3 ML SYRINGE IVFLUSH (00:02)
[2020-12-08] MEDS: Lactated Ringers 1,000 ML 100 ML IVCONT ×2 (00:04→08:23)
[2020-12-08] MEDS: Albuterol/Iprat 2.5/0.5MG 3 ML AMPUL.NEB INHALE ×2 (01:33→08:06)
[2020-12-08 01:56] VITALS: BP 120/67; PULSE 66; RESP 16; TEMP 36.2; O2SAT 99
[2020-12-08] MEDS: ondansetron HCL 4 MG/2 ML VIAL IVPUSH ×2 (03:23→11:57)
[2020-12-08 05:29] LABS: MANUAL DIFF FLAG NO
[2020-12-08 05:31] LABS: Basophils Percent Auto 0.1 % (0-2); Eosinophils Percent Auto 0.1 % (0-4); Hematocrit 37.2 % (37-47); Imm Gran Pct Auto 0.5 % (0.0-0.4); Mean Corpuscular HGB Conc 32.3 g/dl (31.0-35.0); Mean Corpuscular Hemoglobin 26.3 pg (27.0-33.0); Mean Corpuscular Volume 81.6 fL (80-98); Mean Platelet Volume 10.7 fL (9.4-12.3); Monocytes Absolute Auto 1.4 X10*3/uL (0.1-1.2); Monocytes Percent Auto 7.2 % (2-11); Neutrophils Absolute Auto 16.1 X10*3/uL (2.0-8.3); Neutrophils Percent Auto 82.1 % (45-73); Platelet Count 245 X10*3/uL (160-400); Red Blood Count 4.56 X10*6/uL (4.20-5.50); Red Cell Distribution Width 14.3 % (11.0-16.0); White Blood Count 19.6 X10*3/uL (4.8-10.8)
[2020-12-08 06:00] VITALS: BP 129/72; PULSE 53; RESP 16; TEMP 36.6; O2SAT 100
[2020-12-08 06:04] LABS: Anion Gap 16 (12-20); Blood Urea Nitrogen 6 mg/dL (9-16); Carbon Dioxide 25 mmol/L (22-29); Chloride 103 mmol/L (96-108); Creatinine Clr Calc Pharmacy 131.2; Estimated Glomerular Filt Rate > 60; Glucose Random 98 mg/dL (60-115); Potassium 4.2 mmol/l (3.3-5.1); Sodium 140 mmol/L (135-145)
[2020-12-08 07:40] VITALS: BP 110/65; PULSE 67; RESP 20; TEMP 36.4; O2SAT 98
[2020-12-08 08:38] LABS: C Reactive Protein 7.81 mg/dL (< or = 0.50); Lactate Dehydrogenase 206 U/L (122-220)
[2020-12-08 09:00] LABS: Ferritin 435 ng/mL (10-250)
[2020-12-08 09:14] LABS: Procalcitonin 0.03 ng/mL
[2020-12-08] MEDS: Famotidine/PF 20 MG/2 ML VIAL IVPUSH (09:29)
--- NOTE | 2020-12-08 09:55 | PM.IMCN ---
History of Present Illness Data of Consult Service Date: 12/08/20 Requesting physician: Mariah Quintero Primary Care Provider: Hong Patel MD HPI Reason for consult: Med management This is a 45-year-old female with a history of morbid obesity who presented for elective sleeve gastrectomy with repair of diaphragmatic hernia. Following extubation she was noted to be hypoxic. A chest x-ray was obtained which showed question of early ground-glass opacities and therefore a CTA was pursued. Negative for PE however did show diffuse ground-glass changes concerning for COVID-19. For this reason, the hospitalists were asked to see her for evaluation. Both her preoperative and postoperative covid 19 tests were negative. She denies any previous cough, fever, chills, body aches, loss of sense of taste or smell, diarrhea. She has not had any recent covid+ contacts. Overnight she has had an intermittent dry cough. She was requiring oxygen via nasal cannula but has been able to be weaned off. She denies any shortness of breath. Review of Systems Review of Systems: Yes all other systems are reviewed and are negative Constitutional: Constitutional: Denies chills and Denies fever(s) Cardiovascular: Cardiovascular: Denies chest pain and Denies dyspnea Respiratory: Respiratory: Denies pain on inspiration, Denies dyspnea and Denies wheezing Gastrointestinal: Gastrointestinal: Denies abdominal pain Allergic/Immunologic: Allergic/Immunologic: Denies wheezing [facility] Medical History Arthritis Asthma Back pain Degenerative joint disease Depression Diaphragmatic hernia GERD (gastroesophageal reflux disease) History of anxiety Hypertension Intra-abdominal adhesions Liver fibrosis Positive H. pylori test Sleep apnea with use of continuous positive airway pressure (CPAP) Steatosis, liver Functional capacity: independent ambulation Family History Mother Asthma Hypertension Diabetes HX: breast cancer Father No problems noted. Sister No problems noted. Daughter No problems noted. Son Asthma Family history: reviewed and not pertinent Surgical History H/O umbilical hernia repair History of endometrial ablation Hx of section Hx of cholecystectomy Morbid obesity Social History Household Members: Family Are you a primary pediatric acute care unit nurse to a significant other at home: No Do you presently have visiting nurse or other home services: No Alcohol intake: current Alcohol intake frequency: a few times a month Smoking Status: Never smoker Use of substances other than those prescribed or required for medical reasons: No Currently Displaying Signs/Symptoms of Drug Intoxication Withdrawal: No Have you been hit, kicked, punched, or otherwise hurt by someone within the past year? If so, by whom?: No Advance Directives: No Advance Directives Information Provided: No Do you have thoughts of harming others: None Do you have a plan to hurt others: No Plan Recently lost weight without trying: No service: No Current occupational status: employed Meds Allergies Allergy/AdvReac Type Severity Reaction Status Date / Time No Known Allergies Allergy Verified 11/29/20 11:16 Home Medications Medication Instructions Recorded Confirmed Type albuterol sulfate 90 mcg/actuation 2 puff INHALATION Q6H PRN 10/04/20 11/28/20 History aerosol inhaler loratadine 10 mg capsule 10 mg PO DAILY 10/04/20 11/28/20 History nebivolol 10 mg tablet 10 mg PO DAILY 10/04/20 11/28/20 History venlafaxine 150 mg 150 mg PO DAILY 10/04/20 11/28/20 History capsule,extended release 24 hr Physical Exam Vital Signs and Narrative: Vital Signs: Last Vital Signs Temp 97.5 F 12/08/20 07:40 Pulse 67 12/08/20 07:40 Resp 20 12/08/20 07:40 BP 110/65 12/08/20 07:40 Pulse Ox 98 12/08/20 07:40 Body Mass Index 41.7 Const: Nutritional Appearance: well nourished Orientation/consciousness: patient oriented x3 HENMT: Head: Yes normocephalic and Yes atraumatic Eyes: Sclerae: sclerae normal Chest: Chest palpation & inspection: normal inspection of the chest Resp: Effort & Inspection: normal respiratory effort and no respiratory distress Auscultation: clear to auscultation bilaterally Cardio: Rate: regular rate Rhythm: regular rhythm GI: Palpation (GI): Soft to palpation and nontender Skin: General skin exam: no rashes or lesions noted Neuro: General: patient oriented x3 Cranial nerves: Yes CN's II-XII intact bilaterally and Yes Bilaterally intact EOM present Extrem: General: Yes normal to inspection Results Labs CBC and Chem 7: 12/08/20 04:37 12/08/20 04:37 Labs: Laboratory Results - last 24 hr 12/07/20 12/07/20 12/08/20 15:23 21:30 04:37 MCV 81.6 MCH 26.3 L MCHC 32.3 RDW 14.3 Plt Count 245 MPV 10.7 Immature Gran % (Auto) 0.5 H Neut % (Auto) 82.1 H Lymph % (Auto) 10.0 L Newton % (Auto) 7.2 Eos % (Auto) 0.1 Baso % (Auto) 0.1 Lymph # (Auto) 2.0 Newton # (Auto) 1.4 H Eos # (Auto) 0.0 Baso # (Auto) 0.0 Abs Immat Gran (auto) 0.10 H Absolute Neuts (auto) 16.1 H Absolute Nucleated RBC 0.000 Nucleated RBC % (auto) 0.0 Anion Gap 17 Estim Creat Clear Calc 121.3 Estimated GFR > 60 Random Glucose 130 H Calcium 8.0 L D Ferritin Lactate Dehydrogenase C-Reactive Protein Procalcitonin COVID-19 (GILDA) Negative COVID-19 Clin Com See Note 12/08/20 12/08/20 04:37 04:37 MCV MCH MCHC RDW Plt Count MPV Immature Gran % (Auto) Neut % (Auto) Lymph % (Auto) Newton % (Auto) Eos % (Auto) Baso % (Auto) Lymph # (Auto) Newton # (Auto) Eos # (Auto) Baso # (Auto) Abs Immat Gran (auto) Absolute Neuts (auto) Absolute Nucleated RBC Nucleated RBC % (auto) Anion Gap 16 Estim Creat Clear Calc 131.2 Estimated GFR > 60 Random Glucose 98 Calcium 8.0 L Ferritin 435 H Lactate Dehydrogenase 206 C-Reactive Protein 7.81 H Procalcitonin 0.03 COVID-19 (GILDA) COVID-19 Clin Com Imaging Radiologist's Impressions: Impressions Chest CTA 12/07/20 00:00 IMPRESSION: No evidence of pulmonary emboli. Diffuse ground-glass change highly suggestive of COVID-19 pulmonary disease. Right-sided subcutaneous emphysema with question of one small foci of air beneath the hemidiaphragm related to recent surgery. VTE: Negative. This critical result was discussed with ANDRESSA Mendoza at 7:34 PM today and it was ascertained that the content and urgency of the report was understood at the time of direct communication. Chest X-Ray 12/07/20 00:00 IMPRESSION: 1. Coarsening bronchiolar markings with questionable early groundglass opacity left perihilar region. Finding could be related to viral pneumonia. 2. No lobar or segmental airspace consolidation or effusion. Assessment and Plan (1) Ground glass opacity present on imaging of lung: Status: Acute This is a 45-year-old female with a history of asthma, HTN, JAYDON who presented for elective sleeve gastrectomy with hospital course complicated by acute respiratory failure Acute respiratory failure with hypoxia Resolved Likely secondary to microaspiration although imaging with groundglass opacities concerning for covid19. covid test negative x2 Not currently requiring oxygen. Ok to d/c. Recommend isolation on discharge per CDC guidelines (10 days) and repeat covid19 test in about 3 days. Thank you for allowing us to participate in the care of this patient This case was discussed with Dr. Bond
--- NOTE | 2020-12-08 10:11 | MHC.CM.PN ---
CM MET WITH PT WHOSE CURRENT D/C PLAN IS HOME SELF-CARE VS HOME W/HOME O2, TO TRANSPORT. PT REPORTS BEING INDEPENDENT WITH ALL CARE AT HOME, PT LIVES WITH AND TWO CHILDREN. PT DENIES DME EXCEPT CPAP AT NIGHT, PT REPORTS DOCTOR WILL HAVE HER EVALUATED HER FOR TEMPORARY HOME OT PRIOR TO DISCHARGE. PT VERIFIED PCP ARYAN MATTHEWS AND [facility]ARMAC[facility]. : JHOAN YODER [phone]. HCP- PT DECLINING AT THIS TIME.
[2020-12-08 11:00] VITALS: BP 122/63; PULSE 63; RESP 18; TEMP 36.6; O2SAT 100
--- NOTE | 2020-12-08 11:17 | P.POSTANES_ITS ---
Post Anesthesia Evaluation Post Anesthesia Evaluation Vital Signs: Vital Signs Temp Pulse Resp BP Pulse Ox 12/08/20 07:40 97.5 F 67 20 110/65 98 12/08/20 06:00 97.9 F 53 16 129/72 100 12/08/20 01:56 97.2 F 66 16 120/67 99 Anesthesia: General Endotracheal-GETA (Patient is POD#1 s/p sleeve gastrectomy. Apparently patient was slow to awaken from anesthesia post-operatively and ended up getting a total of 800mcg of narcan. Post extubation OPA dislodged and patient apparently had some laryngeal spasm. See note below.) Mental Status: Awake (In PACU patient hypoxic and had CXR done which showed some lianet-bronchial cuffing. ? ground glass appearnce on Ct chest questionable for covid for which she tested negative. Patient has been fine after the initial lianet-op period when she felt a little SOB. Ambulating without problems. Com fortable. ) Pain Control: Satisfactory Nausea/Vomiting: None Hydration: Adequate Anesthesia-Related Issues: No Anes. Related Issues (Feels fine today. VSS with sats 98-100% and no breathing difficulty. Suspect neagtive pressure pulmonary edema lianet-op which has resolved. Ok to discharge if surgical criteria met.)
--- NOTE | 2020-12-08 12:04 | PM.EVENT ---
Event Note Date of Service: 12/08/20 Event Note: Addendum to consultation by ANDRESSA Alejandro I interviewed and examined the patient. I discussed their presentation and management with the mid-level provider. I reviewed the consult note and agree with the documentation, with the following additions and corrections: 45yo F POD#1 sleeve gastrectomy/repair of diaphragmatic hernia Difficult extubation complicated by hypoxia, possible aspiration Now feels completely well; no cough, no dyspnea, and no fever. CTA showed diffuse ground-glass pneumonia. Two molecular tests for COVID-19 were negative, but pre-op and postop. No preoperative respiratory symptoms. Denies anosmia or dysgeusia. No sick contacts. On exam, she is in NAD, afebrile, breathing 12-18/min, pulse 67, SaO2 98 on room air; lungs clear; CV RRR no m/r/g; no extremity edema; abd soft Labs show ferritin 435, LDH 206, CRP 7.81, PCT 0.03, WBC 19.6 with 10% lymphs, SCr 0.61 Impression is of non-specific ground-glass infiltrate and resolved acute hypoxia; could be early COVID-19 with false-negative molecular test versus other viral infection, or more likely aspiration from post-anesthesia recovery. Plan to discharge home as per bariatric service and maintain isolation for the full 10 days and repeat a molecular COVID-19 test in 3 days; strict return precautions were reviewed with the patient.
--- NOTE | 2020-12-08 12:29 | MHC.CM.PN ---
PT BEING DISCHARGED HOME TODAY WITH NO SERVICES, FAMILY TO TRANSPORT.
[2020-12-08 12:53] VITALS: PULSE 64; PULSE 72; O2SAT 100; O2SAT 99
[2020-12-08 12:54] VITALS: O2SAT 100
== END 2020-12-08 13:52 | disposition home or self-care (01) | DRG 620 ==
LOC: HO.SSSA 06:30 → HO.S3 09:17
PROVIDERS: Family Medicine; Nurse Practitioner; Physician Assistant; Admitting Provider Surgery; PCP Internal Medicine; Visit Provider Surgery
PROC: 0DB64Z3 Excision of Stomach, Percutaneous Endoscopic Approach, Vertical (ICD-10-PCS; CPT 43845; principal; 2020-12-07 07:30)
DX: E66.01 Morbid (severe) obesity due to excess calories (principal); K44.0 Diaphragmatic hernia with obstruction, without gangrene; K21.9 Gastro-esophageal reflux disease without esophagitis; G47.30 Sleep apnea, unspecified; Z99.89 Dependence on other enabling machines and devices; J45.909 Unspecified asthma, uncomplicated; F32.9 Major depressive disorder, single episode, unspecified; K76.0 Fatty (change of) liver, not elsewhere classified; K66.0 Peritoneal adhesions (postprocedural) (postinfection); Z20.828 Contact with and (suspected) exposure to other viral communicable diseases; Z68.41 Body mass index [BMI] 40.0-44.9, adult; Z79.899 Other long term (current) drug therapy
CPT/HCPCS: 36415; 71045; 71275; 80048; 81025; 82728; 83615; 84145; 85014; 85018; 85025; 86140; 86850; 86900; 86901; 87635; 88307; 88342; 94640; 99024; A4649; J0131; J0690; J1100; J1170; J2250; J2405; J3010; Q9967

== ENCOUNTER → 2020-12-13 07:46 | Outpatient (BNVA) | payer OTHER, SELFPAY | PROVIDERS: PCP Internal Medicine; Visit Provider Surgery | DX: Z76.89 Persons encountering health services in other specified circumstances (principal) ==

== ENCOUNTER 2020-12-19 20:38 | Emergency (ER) | payer OTHER, SELFPAY ==
--- NOTE | 2020-12-19 | XR_ITS ---
EXAMINATION: XR CHEST CLINICAL INFORMATION: Right-sided chest pain COMPARISON: Chest x-ray and CTA chest 12/07/2020 TECHNIQUE: 2 views of the chest were obtained. FINDINGS: Cardiac silhouette is normal in size. The lungs are adequately aerated. There is no lobar consolidation. Near-complete interval resolution of previously visualized diffuse airspace disease. No pleural effusion or pneumothorax. Surgical clips project over the upper abdomen. Mild degenerative changes of the spine. XR/XR chest 2V IMPRESSION: Near-complete interval resolution of previously visualized diffuse airspace disease.
--- NOTE | 2020-12-19 | ECG_ITS ---
Test Reason : ABD PAIN Blood Pressure : / mmHG Vent. Rate : 075 BPM Atrial Rate : 075 BPM P-R Int : 162 ms QRS Dur : 098 ms QT Int : 376 ms P-R-T Axes : 049 032 019 degrees QTc Int : 419 ms Normal sinus rhythm Normal ECG When compared with ECG of 09-OCT-2020 11:10, No significant change was found Referred By: Igor Jeong Electronically Signed By:SILVANO MARAVILLA
[2020-12-19 20:40] VITALS: BP 145/86; PULSE 77; RESP 16; TEMP 37; O2SAT 96; BMI 38.2
--- NOTE | 2020-12-19 20:47 | CT_ITS ---
EXAMINATION: CT ANGIOGRAM OF THE CHEST WITH AND WITHOUT CONTRAST (CT PULMONARY ANGIOGRAM FOR PE) CLINICAL INFORMATION: Reason for Exam Gastric sleeve surgery 10 d , RUQ, right chest pain, r/o PE COMPARISON: CT angiogram chest 12/07/2020 TECHNIQUE: Prior to contrast administration, noncontrast localization images were obtained. Subsequently, multidetector volumetric imaging was performed from the thoracic inlet to below the diaphragms following the administration of 85 mL Omnipaque 350 intravenous contrast. No contrast reaction reported Sagittal, coronal, and MIP oblique sagittal reformatted images were obtained on the CT workstation, uploaded to PACS, and reviewed. This CT examination was performed using dose optimization techniques as appropriate, variously including the following: *Automated exposure control *Adjustment of mA and/or kV according to patient size (this includes techniques or standardized protocols for targeted exams where dose is matched to indication/reason for exam; i.e. extremities or head) *Use of iterative reconstruction technique Total exam dose-length product 1284 mGy-cm FINDINGS: QUALITY OF STUDY/CONTRAST BOLUS: Satisfactory. PULMONARY ARTERIES: No central or segmental pulmonary emboli. THORACIC AORTA: No aneurysm or dissection. LUNG: There is been complete resolution of the previously seen rather extensive groundglass opacities in both lungs. PLEURA: No pleural effusion or pneumothorax. MEDIASTINUM: Normal heart size. No pericardial effusion. No hilar or mediastinal lymphadenopathy. No evidence of septal bowing or right heart strain. Some thyroid nodules may be present. CHEST WALL/AXILLA: Previously seen right chest and abdominal wall subcutaneous emphysema has resolved with only 2 tiny locules of air remaining. No axillary or internal mammary lymphadenopathy. OSSEOUS STRUCTURES: No acute or suspicious osseous abnormality. UPPER ABDOMEN: See report of CT abdomen/pelvis same day. No reflux of contrast into the hepatic veins to suggest elevated right heart pressures. CT/CT angio chest PE protocol IMPRESSION: 1. No evidence of pulmonary emboli 2. Marked diffuse groundglass opacities in the lungs have completely resolved. 3. Postop subcutaneous emphysema has nearly completely resolved. 4. A cause for the patient's acute right chest pain has not been found. 5. Incidentally noted probable thyroid nodules. VTE: negative
--- NOTE | 2020-12-19 20:49 | CT_ITS ---
EXAMINATION: CT ABDOMEN AND PELVIS WITH CONTRAST CLINICAL INFORMATION: Gastric sleeve SX, RUQ, R chest pain, r/0 hernia, gallb, abs COMPARISON: None TECHNIQUE: Multidetector volumetric images were obtained from the superior aspect of the liver through the pubic symphysis following administration 85 mL of Omnipaque 350 intravenous contrast. Sagittal and coronal reformatted images were obtained on the technologist's workstation. Oral contrast: No This CT examination was performed using dose optimization techniques as appropriate, variously including the following: *Automated exposure control *Adjustment of mA and/or kV according to patient size (this includes techniques or standardized protocols for targeted exams where dose is matched to indication/reason for exam; i.e. extremities or head) *Use of iterative reconstruction technique DLP: 895 mGy-cm FINDINGS: LUNG BASES: The visualized lung bases are unremarkable. A small left anterior paracardiac lymph node is present. LIVER, GALLBLADDER, AND BILIARY TREE: The liver is normal in size, shape, and attenuation. No focal hepatic lesion or biliary ductal dilatation is present. Status post cholecystectomy. PANCREAS: Unremarkable. SPLEEN: Unremarkable. ADRENAL GLANDS: Unremarkable. KIDNEYS AND URETERS: The kidneys are normal in size, shape, and attenuation. A tiny 3 mm hypodensity seen in the left kidney statistically a cyst. No solid masses seen. No hydronephrosis, hydroureter, or calculi seen. No perinephric stranding. BLADDER: Decompressed but unremarkable. GASTROINTESTINAL TRACT: In the mid descending colon, there is an area of inflammation present with pericolonic inflammatory change in the fat extending into Morison's pouch. In addition, there is associated thickening of the lateral conal and anterior pararenal fascia. Although discrete diverticula are not seen, findings could represent diverticulitis or the popliteal appendagitis. The small and large bowel are unremarkable. The appendix is unremarkable. ABDOMINAL WALL: No significant hernia is appreciated. Tiny periumbilical hernia seen containing only fat. LYMPH NODES: No retroperitoneal lymphadenopathy VASCULAR: Unremarkable. PELVIC VISCERA: A anteverted uterus is present. A tiny subserosal calcification is present on the ventral surface. No uterine masses are seen. A right complex ovarian cyst is present measuring 6.2 x 4.0 x 5.6 cm. Mass is predominantly cystic with solid components. Left ovary appears normal. No ascites is seen. OSSEOUS STRUCTURES: Unremarkable. CT/CT abdomen pelvis w con IMPRESSION: Inflammatory change in the mid ascending colon in the right upper quadrant probably accounts for the patient's pain. Differential diagnosis as described above would include epiploic appendagitis and occult diverticulitis. There is a complex right ovarian cystic mass present with solid components that should be further evaluated with transabdominal and endovaginal ultrasound. Incidental note made of cholecystectomy, gastric sleeve, possible uterine fibroid with subserosal calcification.
[2020-12-19 21:02] VITALS: BP 122/84; PULSE 75; RESP 18; TEMP 37.1; O2SAT 98
[2020-12-19 21:26] LABS: Glucose Urine UA NEG (NEG); Leukocyte Esterase Urine TRACE (NEG); Nitrite Urine NEG (NEG); Urine Blood NEG (NEG); Urine Ketones NEG (NEG); Urine Protein NEG (NEG-TRACE)
[2020-12-19 21:27] LABS: Appearance Urine CLEAR; Color Urine YELLOW
[2020-12-19] MEDS: 0.9 % Sodium Chloride 1,000 ML 999 ML IV (21:27)
[2020-12-19 21:31] LABS: MANUAL DIFF FLAG NO
[2020-12-19 21:32] LABS: WBC Urine 0 /HPF (0-4)
[2020-12-19 21:33] LABS: Bacteria Urine 1+ /LPF; RBC Urine 0 /HPF (0); Squamous Epithelial Cell Urine 1+ /LPF
[2020-12-19 21:33] LABS: Basophils Absolute Auto 0.1 X10*3/uL (0.0-0.2); Basophils Percent Auto 0.3 % (0-2); Eosinophils Absolute Auto 0.6 X10*3/uL (0.0-0.4); Eosinophils Percent Auto 4.1 % (0-4); Hematocrit 41.2 % (37-47); Imm Gran Abs Auto 0.06 X10*3/uL (0.00-0.03); Imm Gran Pct Auto 0.4 % (0.0-0.4); Lymphocytes Absolute Auto 3.3 X10*3/uL (1.2-4.9); Lymphocytes Percent Auto 22.6 % (20-40); Mean Corpuscular HGB Conc 31.6 g/dl (31.0-35.0); Mean Corpuscular Hemoglobin 25.5 pg (27.0-33.0); Mean Corpuscular Volume 80.9 fL (80-98); Mean Platelet Volume 9.8 fL (9.4-12.3); Monocytes Absolute Auto 1.3 X10*3/uL (0.1-1.2); Monocytes Percent Auto 8.8 % (2-11); Neutrophils Absolute Auto 9.4 X10*3/uL (2.0-8.3); Neutrophils Percent Auto 63.8 % (45-73); Platelet Count 297 X10*3/uL (160-400); Red Blood Count 5.09 X10*6/uL (4.20-5.50); Red Cell Distribution Width 14.5 % (11.0-16.0); White Blood Count 14.7 X10*3/uL (4.8-10.8)
[2020-12-19 21:42] LABS: INTERNATIONAL NORM RATIO 1.5 (0.9-1.1); Prothrombin Time 17.5 SEC (10.8-13.0)
[2020-12-19 21:44] LABS: Partial Thromboplastin Time 31.5 SEC (24.1-38.0)
[2020-12-19 21:52] LABS: D Dimer 1731 NG/ML
[2020-12-19 22:04] LABS: Lipase 14 U/L (8-78)
[2020-12-19 22:05] LABS: Alanine Aminotransferase 22 U/L (0-31); Albumin Level 4.3 g/dL (3.5-5.0); Alkaline Phosphatase 91 U/L (39-117); Anion Gap 14 (12-20); Aspartate Amino Transferase 19 U/L (5-31); Bilirubin Total 0.4 mg/dL (0.0-1.0); Blood Urea Nitrogen 11 mg/dL (9-16); Calcium 9.2 mg/dL (8.4-10.2); Carbon Dioxide 32 mmol/L (22-29); Chloride 99 mmol/L (96-108); Creatinine Clr Calc Pharmacy 119.1; Estimated Glomerular Filt Rate > 60; Glucose Random 98 mg/dL (60-115); Potassium 4.1 mmol/l (3.3-5.1); Sodium 141 mmol/L (135-145); Total Protein 7.2 g/dL (6.5-8.0)
[2020-12-19 22:11] LABS: Troponin-I High Sensitivity < 3.5 ng/L (<3.5-17.0)
--- NOTE | 2020-12-19 22:47 | ED.GENADULT ---
HPI - General Adult General Chief complaint: Abdominal Pain Stated complaint: post op abdominal pain Time Seen by Provider: 12/19/20 20:45 Source: patient Mode of arrival: ambulatory Limitations: no limitations History of Present Illness HPI narrative: 45-year-old female who presents emergency department for evaluation of right upper quadrant and right flank pain. The patient had a gastric sleeve surgery approximately [address] Rainey. The patient states that she had very little pain after the surgery and was taking Tylenol. She states that on Friday, 3 days prior to evaluation she had a gradual onset of right upper quadrant pain radiating to her right flank. She states that the pain has been constant since Friday. The pain is a sharp pain which is 6/10 at its worse. The pain is worse with breathing. She states that she did has some nausea prior to coming to the emergency department but no vomiting. She has been constipated and has no bowel movement x4 days. She denied fever, chills, cough or shortness of breath. She denied dyspnea on exertion. She denied pain or swelling in her lower extremities. The patient's surgeon was concerned that the patient may have a pulmonary embolism he referred her to the emergency department for evaluation. He also called and expect and we did discuss this patient over the phone prior to the patient's arrival. Patient states that she had similar right flank pain after her secondary to a kidney infection. Past surgical history includes cholecystectomy, x2, surgery for adhesions, and uterine ablation. Related Data Home Medications Medication Instructions Recorded Confirmed albuterol sulfate 90 mcg/actuation 2 puff INHALATION Q6H PRN 10/04/20 11/28/20 aerosol inhaler loratadine 10 mg capsule 10 mg PO DAILY 10/04/20 11/28/20 nebivolol 10 mg tablet 10 mg PO DAILY 10/04/20 11/28/20 venlafaxine 150 mg 150 mg PO DAILY 10/04/20 11/28/20 capsule,extended release 24 hr Previous Rx's Medication Instructions Recorded docusate sodium 100 mg capsule 100 mg PO BID #60 cap 11/15/20 ondansetron HCl 4 mg tablet 4 mg PO Q6H PRN #30 tab 11/29/20 pantoprazole 40 mg tablet,delayed 40 mg PO DAILY #30 tab 11/29/20 release sucralfate 100 mg/mL oral 10 ml PO BID #420 ml 11/29/20 suspension fluconazole [Diflucan] 150 mg PO QWEEK 14 Days #2 tab 12/20/20 levofloxacin 500 mg PO DAILY 10 Days #10 tab 12/20/20 Allergies Allergy/AdvReac Type Severity Reaction Status Date / Time No Known Allergies Allergy Verified 12/13/20 07:49 Review of Systems Review of Systems: Yes all other systems are reviewed and are negative Neurologic: Reports Abnormal speech present [facility] Past Medical History Medical History Arthritis Asthma Back pain Degenerative joint disease Depression Diaphragmatic hernia GERD (gastroesophageal reflux disease) History of anxiety Hypertension Intra-abdominal adhesions Liver fibrosis Obesity Positive H. pylori test Sleep apnea with use of continuous positive airway pressure (CPAP) Steatosis, liver Surgical History H/O umbilical hernia repair History of endometrial ablation Hx of section Hx of cholecystectomy Morbid obesity Family History Family History Mother Asthma Hypertension Diabetes HX: breast cancer Father No problems noted. Sister No problems noted. Daughter No problems noted. Son Asthma Social History Social History Household Members: Family Alcohol intake: never Smoking Status: Never smoker Smoked in Last 30 Days: No Use of substances other than those prescribed or required for medical reasons: No Advance Directives: No Advance Directives Information Provided: Yes service: No Current occupational status: employed Physical Exam Vital Signs: Vital Signs: Last Vital Signs Temp 98.7 F 12/19/20 21:02 Pulse 75 12/19/20 21:02 Resp 18 12/19/20 21:02 BP 122/84 12/19/20 21:02 Pulse Ox 98 12/19/20 21:02 Body Mass Index 38.2 Const: General: cooperative and other (Very pleasant and cooperative, does not appear to be in distress) Nutritional Appearance: obese Orientation/consciousness: oriented to person and oriented to place Limitations: no limitations HENMT: Head: Yes normal to inspection, Yes normocephalic and Yes atraumatic Ears: external ears normal General nose exam: Normal external nose present Face and sinus: Yes normal facial exam Mouth: Normal oral and palatal mucosa present Throat: Yes posterior oropharynx normal Eyes: Periorbital: periorbital findings normal Eyelids: Yes eyelids normal Conjunctivae: conjunctivae normal Sclerae: sclerae normal Corneas: corneas normal Pupils: Equal, round and reactive pupils present Direct Ophthalmoscopy: normal light reflex Neck: Neck: Yes full ROM, Yes no lymphadenopathy, Yes no meningeal signs, Yes trachea midline and Yes supple Chest: Chest palpation & inspection: normal inspection of the chest and normal palpation of entire chest wall Resp: Effort & Inspection: normal respiratory effort and able to speak in complete sentences Auscultation: clear to auscultation bilaterally Cardio: Rate: regular rate Rhythm: regular rhythm Heart sounds: S1 normal heart sound present, S2 normal heart sound present and no murmurs GI: Inspection: Yes other (Surgical sites are slightly ecchymotic, no erythema or warmth) Palpation (GI): Soft to palpation, Tenderness to palpation present (GI) in the RLQ (Moderate), no guarding, not rigid and No hepatosplenomegaly present : General: Yes CVA tenderness on the right (Moderate) Back/Spine/Pelvis: Back: CVA tenderness Cervical Spine: normal cervical lordosis Thoracic/Lumbar Spine: thoracic and lumbar spine normal to inspection Skin: Lesions: no lesions Rashes: no rashes Wounds: no wounds Neuro: General: oriented to person, oriented to place and no meningeal signs Cranial nerves: Yes Equal, round and reactive pupils present Cognition (Neuro): normal cognition Speech: Abnormal speech present Motor exam (neuro): 5/5 motor strength present throughout Extrem: General: Yes normal to inspection and Yes full ROM Psych: Appearance: well kempt Mental Status: mental status grossly normal Speech and movement: Normal speech and movement present Affect: normal affect Attitude: cooperative Thought process: Normal thought process present Thought content: Normal thought content present Course Course Course Narrative: 45-year-old female who presents emergency department for evaluation of right upper quadrant and right flank pleuritic like pain times 3 days. The patient is pressure with 11 days postop from gastric sleeve surgery. Physical examination revealed normal vital signs with temperature 98.6? and O2 saturation of 96% on room air and a pulse of 77. The patient does have right upper quadrant and right flank CVA tenderness. [place] [address], LFTs were normal, lipase was normal. The patient was having 6/10 pain but she did not want any narcotic medications. She was ordered to get Tylenol 1000 mg IV for her pain and normal saline x1 L. 0017: Patient to get some relief with the IV Tylenol. The patient's laboratory evaluation did [place] [address] otherwise was unremarkable. The CT pulmonary angiogram PE protocol did not reveal any significant pulmonary emboli as the cause of her pain. CT scan of the patient's abdomen pelvis with IV contrast did reveal inflammatory changes in the mid ascending colon and right upper quadrant with the differential including occult diverticulitis versus epiploic appendagitis. I did discuss this finding with the patient's surgeon, Dr. Rainey and the patient will be started on Levaquin 500 mg once a day for 10 days. She was given her 1st dose here in the emergency department. She states that she gets yeast infections frequently with antibiotics therefore she was given Diflucan 150 mg to take when she gets evidence of a yeast infection and she should repeat this dose in 1 week. She will follow-up with her surgeon for further evaluation. She was advised to return the emergency department for symptoms get worse or if she develops any new symptoms that are concerning to her. Medical Decision Making Lab Data Result diagrams: 12/19/20 21:09 12/19/20 21:09 Labs: Lab Results 12/19/20 12/19/20 12/19/20 Range/Units 21:09 21:09 21:09 WBC 14.7 H (4.8-10.8) X10*3/uL RBC 5.09 (4.20-5.50) X10*6/uL Hgb 13.0 (12.0-16.0) g/dl Hct 41.2 (37-47) % MCV 80.9 (80-98) fL MCH 25.5 L (27.0-33.0) pg MCHC 31.6 (31.0-35.0) g/dl RDW 14.5 (11.0-16.0) % Plt Count 297 (160-400) X10*3/uL MPV 9.8 (9.4-12.3) fL Immature Gran % (Auto) 0.4 (0.0-0.4) % Neut % (Auto) 63.8 (45-73) % Lymph % (Auto) 22.6 (20-40) % [place] % (Auto) 8.8 (2-11) % Eos % (Auto) 4.1 H (0-4) % Baso % (Auto) 0.3 (0-2) % Lymph # (Auto) 3.3 (1.2-4.9) X10*3/uL [place] # (Auto) 1.3 H (0.1-1.2) X10*3/uL Eos # (Auto) 0.6 H (0.0-0.4) X10*3/uL Baso # (Auto) 0.1 (0.0-0.2) X10*3/uL Abs Immat Gran (auto) 0.06 H (0.00-0.03) X10*3/uL Absolute Neuts (auto) 9.4 H (2.0-8.3) X10*3/uL Absolute Nucleated RBC 0.000 (0.0-0.012) X10*3/uL Nucleated RBC % (auto) 0.0 (0.0-0.2) /100WBC PT 17.5 H D (10.8-13.0) SEC INR 1.5 H (0.9-1.1) APTT 31.5 (24.1-38.0) SEC D-Dimer 1731 NG/ML Sodium 141 (135-145) mmol/L Potassium 4.1 (3.3-5.1) mmol/l Chloride 99 (96-108) mmol/L Carbon Dioxide 32 H (22-29) mmol/L Anion Gap 14 (12-20) BUN 11 D (9-16) mg/dL Creatinine 0.64 (0.5-1.4) mg/dL Estim Creat Clear Calc 119.1 Estimated GFR > 60 Random Glucose 98 (60-115) mg/dL Calcium 9.2 D (8.4-10.2) mg/dL Total Bilirubin 0.4 (0.0-1.0) mg/dL AST 19 (5-31) U/L ALT 22 (0-31) U/L Alkaline Phosphatase 91 (39-117) U/L Troponin I High Sens (<3.5-17.0) ng/L Total Protein 7.2 (6.5-8.0) g/dL Albumin 4.3 (3.5-5.0) g/dL Lipase (8-78) U/L Urine Color Urine Appearance Urine pH (5.0-8.0) Ur Specific [place] (1.005-1.025) Urine Protein (NEG-TRACE) MG/DL Urine Glucose (UA) (NEG) MG/DL Urine Ketones (NEG) MG/DL Urine Blood (NEG) Urine Nitrite (NEG) Ur Leukocyte Esterase (NEG) Urine RBC (0) /HPF Urine WBC (0-4) /HPF Ur Squamous Epith Cells /LPF Urine Bacteria /LPF 12/19/20 12/19/20 12/19/20 Range/Units 21:09 21:09 21:17 WBC (4.8-10.8) X10*3/uL RBC (4.20-5.50) X10*6/uL Hgb (12.0-16.0) g/dl Hct (37-47) % MCV (80-98) fL MCH (27.0-33.0) pg MCHC (31.0-35.0) g/dl RDW (11.0-16.0) % Plt Count (160-400) X10*3/uL MPV (9.4-12.3) fL Immature Gran % (Auto) (0.0-0.4) % Neut % (Auto) (45-73) % Lymph % (Auto) (20-40) % [place] % (Auto) (2-11) % Eos % (Auto) (0-4) % Baso % (Auto) (0-2) % Lymph # (Auto) (1.2-4.9) X10*3/uL [place] # (Auto) (0.1-1.2) X10*3/uL Eos # (Auto) (0.0-0.4) X10*3/uL Baso # (Auto) (0.0-0.2) X10*3/uL Abs Immat Gran (auto) (0.00-0.03) X10*3/uL Absolute Neuts (auto) (2.0-8.3) X10*3/uL Absolute Nucleated RBC (0.0-0.012) X10*3/uL Nucleated RBC % (auto) (0.0-0.2) /100WBC PT (10.8-13.0) SEC INR (0.9-1.1) APTT (24.1-38.0) SEC D-Dimer NG/ML Sodium (135-145) mmol/L Potassium (3.3-5.1) mmol/l Chloride (96-108) mmol/L Carbon Dioxide (22-29) mmol/L Anion Gap (12-20) BUN (9-16) mg/dL Creatinine (0.5-1.4) mg/dL Estim Creat Clear Calc Estimated GFR Random Glucose (60-115) mg/dL Calcium (8.4-10.2) mg/dL Total Bilirubin (0.0-1.0) mg/dL AST (5-31) U/L ALT (0-31) U/L Alkaline Phosphatase (39-117) U/L Troponin I High Sens < 3.5 (<3.5-17.0) ng/L Total Protein (6.5-8.0) g/dL Albumin (3.5-5.0) g/dL Lipase 14 (8-78) U/L Urine Color YELLOW Urine Appearance CLEAR Urine pH 6.0 (5.0-8.0) Ur Specific [place] 1.010 (1.005-1.025) Urine Protein NEG (NEG-TRACE) MG/DL Urine Glucose (UA) NEG (NEG) MG/DL Urine Ketones NEG (NEG) MG/DL Urine Blood NEG (NEG) Urine Nitrite NEG (NEG) Ur Leukocyte Esterase TRACE H (NEG) Urine RBC 0 (0) /HPF Urine WBC 0 (0-4) /HPF Ur Squamous Epith Cells 1+ /LPF Urine Bacteria 1+ /LPF Discharge Plan Discharge Clinical Impression: Colitis Abdominal pain Qualifiers: Abdominal location: right upper quadrant Qualified Code(s): R10.11 - Right upper quadrant pain Patient Disposition: Home, Self-Care Instructions: Colitis (ED) Additional Instructions: Your laboratory evaluation revealed an elevated white blood cell count which can be a sign of inflammation or infection. The CT scan of your chest revealed no pulmonary embolism (blood clot in your lung). The CT scan of your abdomen and pelvis with IV contrast revealed inflammation of your right ascending colon and right upper colon. This may be related to your surgery or may be secondary to a colon infection such as colitis or diverticulitis. Take Levaquin 500 mg once a day for 10 days. You received your 1st dose here in the emergency department, take your next dose tomorrow evening. If she develops signs of a yeast infection take Diflucan 150 mg and then repeat this dose in 1 week. Ask your surgeon about taking a probiotic with the antibiotic to see if this is okay to do with your recent surgery. Follow-up with your surgeon in 2 days. Please return to the emergency department if your symptoms get worse or if you develop any symptoms that are concerning to you. Prescriptions: New levofloxacin 500 mg tablet 500 mg PO DAILY 10 Days Qty: 10 RF: 0 fluconazole [Diflucan] 150 mg tablet 150 mg PO QWEEK 14 Days Qty: 2 RF: 0 No Action venlafaxine [Effexor XR] 150 mg capsule,extended release 24hr 150 mg PO DAILY RF: 0 Bystolic 10 mg tablet 10 mg PO DAILY RF: 0 loratadine [Claritin Liqui-Gel] 10 mg capsule 10 mg PO DAILY RF: 0 albuterol sulfate [ProAir HFA] 90 mcg/actuation HFA aerosol inhaler 2 puff inhalation Q6H PRN (Reason: Shortness Of Breath) RF: 0 docusate sodium [Colace] 100 mg capsule 100 mg PO BID Qty: 60 RF: 2 pantoprazole 40 mg tablet,delayed release (DR/EC) 40 mg PO DAILY Qty: 30 RF: 2 sucralfate 100 mg/mL suspension 10 ml PO BID Qty: 420 RF: 2 ondansetron HCl [Zofran] 4 mg tablet 4 mg PO Q6H PRN (Reason: nausea and vomiting) Qty: 30 RF: 0
[2020-12-19] MEDS: iohexoL 350 MG/ML 100 ML INFUS..BTL 85 ML IV (22:48)
[2020-12-20] MEDS: levoFLOXacin 500 MG TABLET PO (00:23)
== END 2020-12-20 00:34 | disposition home or self-care (01) ==
PROVIDERS: Emergency Provider Emergency Medicine Emergency Medical Services
DX: K52.9 Noninfective gastroenteritis and colitis, unspecified (principal); R10.11 Right upper quadrant pain; Z98.84 Bariatric surgery status; K21.9 Gastro-esophageal reflux disease without esophagitis
CPT/HCPCS: 36415; 71046; 71275; 74177; 80053; 81001; 83690; 84484; 85025; 85379; 85610; 85730; 87086; 93005; 96361; 96374; 99284; J0131; Q9967

== ENCOUNTER 2020-12-26 08:48 | Outpatient (REF) | payer OTHER, SELFPAY ==
[2020-12-26 09:10] LABS: MANUAL DIFF FLAG NO
[2020-12-26 09:14] LABS: Basophils Absolute Auto 0.1 X10*3/uL (0.0-0.2); Basophils Percent Auto 0.4 % (0-2); Eosinophils Absolute Auto 0.6 X10*3/uL (0.0-0.4); Hematocrit 40.5 % (37-47); Hemoglobin 12.5 g/dl (12.0-16.0); Imm Gran Abs Auto 0.06 X10*3/uL (0.00-0.03); Imm Gran Pct Auto 0.5 % (0.0-0.4); Lymphocytes Absolute Auto 1.9 X10*3/uL (1.2-4.9); Lymphocytes Percent Auto 15.8 % (20-40); Mean Corpuscular HGB Conc 30.9 g/dl (31.0-35.0); Mean Corpuscular Hemoglobin 25.2 pg (27.0-33.0); Mean Corpuscular Volume 81.5 fL (80-98); Mean Platelet Volume 9.4 fL (9.4-12.3); Monocytes Absolute Auto 1.2 X10*3/uL (0.1-1.2); Monocytes Percent Auto 10.3 % (2-11); Platelet Count 346 X10*3/uL (160-400); Red Blood Count 4.97 X10*6/uL (4.20-5.50); Red Cell Distribution Width 14.1 % (11.0-16.0); White Blood Count 11.8 X10*3/uL (4.8-10.8)
[2020-12-26 09:51] LABS: Alanine Aminotransferase 17 U/L (0-31); Albumin Level 3.9 g/dL (3.5-5.0); Alkaline Phosphatase 136 U/L (39-117); Anion Gap 15 (12-20); Bilirubin Total 0.4 mg/dL (0.0-1.0); Blood Urea Nitrogen 10 mg/dL (9-16); C Reactive Protein 22.67 mg/dL (< or = 0.50); Calcium 9.3 mg/dL (8.4-10.2); Carbon Dioxide 30 mmol/L (22-29); Chloride 101 mmol/L (96-108); Estimated Glomerular Filt Rate > 60; Glucose Random 113 mg/dL (60-115); Potassium 4.1 mmol/l (3.3-5.1); Sodium 142 mmol/L (135-145); Total Protein 6.6 g/dL (6.5-8.0)
[2020-12-26 09:57] LABS: Aspartate Amino Transferase 15 U/L (5-31)
== END 2020-12-26 08:49 | disposition home or self-care (01) ==
LOC: HO.LAB 08:48
PROVIDERS: PCP Internal Medicine; Visit Provider Surgery
DX: K90.9 Intestinal malabsorption, unspecified (principal)
CPT/HCPCS: 36415; 80053; 85025; 86140

== ENCOUNTER 2020-12-27 12:19 | Outpatient (REF) | payer OTHER, SELFPAY ==
--- NOTE | 2020-12-27 12:24 | CT_ITS ---
EXAMINATION: CT ABDOMEN AND PELVIS WITH CONTRAST CLINICAL INFORMATION: Abdominal pain COMPARISON: Previous CT of the abdomen and pelvis 12/19/2020 TECHNIQUE: Multidetector volumetric images were obtained from the superior aspect of the liver through the pubic symphysis following administration 85 mL of Omnipaque 350 intravenous contrast. Sagittal and coronal reformatted images were obtained on the technologist's workstation. Oral contrast: Yes This CT examination was performed using dose optimization techniques as appropriate, variously including the following: *Automated exposure control *Adjustment of mA and/or kV according to patient size (this includes techniques or standardized protocols for targeted exams where dose is matched to indication/reason for exam; i.e. extremities or head) *Use of iterative reconstruction technique DLP: 677 mGy-cm FINDINGS: LUNG BASES: There is a new or increasing small right pleural effusion. There is increasing adjacent right lower lobe Atelectasis or small infiltrate. There is a new subsegmental atelectasis or small infiltrate in the medial segment of the right middle lobe as well. The left lung base is clear. LIVER, GALLBLADDER, AND BILIARY TREE: The liver is normal in and shape. The liver is low in attenuation suggestive of fatty infiltration. No focal hepatic lesion or biliary ductal dilatation is present. The gallbladder has been removed. PANCREAS: Unremarkable. SPLEEN: Unremarkable. ADRENAL GLANDS: Unremarkable. KIDNEYS AND URETERS: There is interval decrease in the inflammatory changes seen adjacent to the right colon and hepatic flexure. No evidence of colitis or diverticulitis is seen. No evidence of appendicitis is seen. There are postoperative changes from gastric sleeve procedure. BLADDER: Unremarkable. GASTROINTESTINAL TRACT: The small and large bowel are unremarkable. The appendix is unremarkable. ABDOMINAL WALL: There is a small umbilical hernia containing fat. LYMPH NODES: There are small lower abdominal and right pelvic retroperitoneal lymph nodes. No enlarged lymph nodes are seen. VASCULAR: Unremarkable. PELVIC VISCERA: There is a 4.3 x 6 x 5.1 cm complex cystic right adnexal lesion. This has both cystic and solid component. This appears unchanged from previous exam. Uterus and left ovary are unremarkable. OSSEOUS STRUCTURES: Unremarkable. CT/CT abdomen pelvis w con IMPRESSION: Resolved inflammatory changes of the pericolic fat adjacent to the ascending colon and hepatic flexure. No evidence of colitis or diverticulitis. Increasing small right pleural effusion and right and middle lobe atelectasis/small infiltrate. Stable complex cystic right adnexal lesion. This could be better evaluated with pelvic ultrasound. 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
[2020-12-27] MEDS: iohexoL 350 MG/ML 100 ML INFUS..BTL IV (14:49)
== END 2020-12-27 12:20 | disposition home or self-care (01) ==
LOC: HO.CT 12:19
PROVIDERS: PCP Internal Medicine; Visit Provider Surgery
DX: R10.9 Unspecified abdominal pain (principal)
CPT/HCPCS: 74177; Q9967

== ENCOUNTER 2021-01-10 10:50 | Outpatient (REF) | payer OTHER, SELFPAY ==
--- NOTE | ~2021-01-10 | CT_ITS ---
EXAMINATION: CT CHEST WITH CONTRAST CLINICAL INFORMATION: Pleural effusion COMPARISON: Previous chest CTA 12/19/[address] of the abdomen and pelvis 12/27/2020 TECHNIQUE: Multidetector volumetric CT imaging of the chest was obtained after the administration of 65 mL of Omnipaque 350 intravenous contrast without immediate adverse reactions. Axial MIP volume rendering provided. Sagittal and coronal reformatted images were obtained. This CT examination was performed using dose optimization techniques as appropriate, variously including the following: *Automated exposure control *Adjustment of mA and/or kV according to patient size (this includes techniques or standardized protocols for targeted exams where dose is matched to indication/reason for exam; i.e. extremities or head) *Use of iterative reconstruction technique DLP: 175 mGy-cm FINDINGS: BOOT TURNER: Unremarkable LUNGS: The previously identified right middle and right lower lobe atelectasis/consolidation is no longer seen. There is a 3 mm right upper lobe nodule axial image 75 series 7. There is a 3 mm left upper lobe nodule axial image 73 series 7. There is a 3 mm peripheral or subpleural right middle lobe nodule axial image 97 series 7. There is a 2 mm peripheral or subpleural left lower lobe nodule axial image 141 series 7. The lungs are otherwise clear. MEDIASTINUM: There is a 1.2 x 1.8 x 2 cm right thyroid nodule. The mediastinum is otherwise normal. PLEURA: There is no pleural effusion. No pleural mass or thickening. AXILLA: No lymphadenopathy. UPPER ABDOMEN: The liver is low in attenuation suggestive of fatty infiltration. There are postsurgical changes of the stomach from gastric sleeve. OSSEOUS STRUCTURES: There are mild degenerative changes of the spine. CT/CT chest w con IMPRESSION: Small bilateral pulmonary nodules, largest measuring 3 mm. The previously identified right middle and lower lobe atelectasis/consolidation and small right pleural effusion have resolved. 1.2 x 1.8 cm right thyroid nodule. Follow-up thyroid ultrasound recommended.
[2021-01-10 11:29] LABS: MANUAL DIFF FLAG NO
[2021-01-10 11:37] LABS: Basophils Percent Auto 0.4 % (0-2); Eosinophils Percent Auto 10.6 % (0-4); Hematocrit 40.9 % (37-47); Hemoglobin 12.9 g/dl (12.0-16.0); Imm Gran Abs Auto 0.02 X10*3/uL (0.00-0.03); Imm Gran Pct Auto 0.2 % (0.0-0.4); Lymphocytes Absolute Auto 2.5 X10*3/uL (1.2-4.9); Lymphocytes Percent Auto 26.1 % (20-40); Mean Corpuscular HGB Conc 31.5 g/dl (31.0-35.0); Mean Corpuscular Hemoglobin 25.2 pg (27.0-33.0); Mean Corpuscular Volume 79.9 fL (80-98); Monocytes Absolute Auto 0.9 X10*3/uL (0.1-1.2); Monocytes Percent Auto 8.9 % (2-11); Neutrophils Absolute Auto 5.2 X10*3/uL (2.0-8.3); Neutrophils Percent Auto 53.8 % (45-73); Platelet Count 246 X10*3/uL (160-400); Red Blood Count 5.12 X10*6/uL (4.20-5.50); Red Cell Distribution Width 14.4 % (11.0-16.0); White Blood Count 9.6 X10*3/uL (4.8-10.8)
[2021-01-10] MEDS: iohexoL 350 MG/ML 100 ML INFUS..BTL IV (12:06)
[2021-01-10 12:07] LABS: Alanine Aminotransferase 32 U/L (0-31); Albumin Level 4.4 g/dL (3.5-5.0); Alkaline Phosphatase 88 U/L (39-117); Anion Gap 17 (12-20); Aspartate Amino Transferase 26 U/L (5-31); Bilirubin Total 0.6 mg/dL (0.0-1.0); Blood Urea Nitrogen 13 mg/dL (9-16); C Reactive Protein 3.52 mg/dL (< or = 0.50); Calcium 9.4 mg/dL (8.4-10.2); Carbon Dioxide 31 mmol/L (22-29); Chloride 100 mmol/L (96-108); Estimated Glomerular Filt Rate > 60; Glucose Random 96 mg/dL (60-115); Potassium 3.8 mmol/L (3.3-5.1); Sodium 144 mmol/L (135-145)
== END 2021-01-10 10:51 | disposition home or self-care (01) ==
LOC: HO.CT 10:50
PROVIDERS: PCP Internal Medicine; Visit Provider Surgery
DX: R10.9 Unspecified abdominal pain (principal); J90 Pleural effusion, not elsewhere classified
CPT/HCPCS: 36415; 71260; 80053; 85025; 86140; Q9967

== ENCOUNTER → 2021-01-17 08:17 | Outpatient (BNVA) | payer OTHER, SELFPAY | PROVIDERS: PCP Internal Medicine; Visit Provider Surgery ==

== ENCOUNTER → 2021-02-14 08:05 | Outpatient (BNVA) | payer OTHER, SELFPAY | PROVIDERS: PCP Internal Medicine; Visit Provider Surgery ==

== ENCOUNTER → 2021-03-16 08:12 | Outpatient (BNVA) | payer OTHER, SELFPAY | PROVIDERS: PCP Internal Medicine; Visit Provider Surgery ==

== ENCOUNTER → 2021-05-04 08:14 | Outpatient (BNVA) | payer OTHER, SELFPAY | PROVIDERS: PCP Internal Medicine; Visit Provider Surgery ==

== ENCOUNTER 2021-05-11 08:43 | Outpatient (REF) | payer OTHER, SELFPAY ==
[2021-05-11 09:58] LABS: MANUAL DIFF FLAG NO
[2021-05-11 10:06] LABS: Basophils Percent Auto 0.3 % (0-2); Eosinophils Absolute Auto 0.4 X10*3/uL (0.0-0.4); Eosinophils Percent Auto 4.1 % (0-4); Hematocrit 42.4 % (37-47); Hemoglobin 13.4 g/dl (12.0-16.0); Imm Gran Abs Auto 0.02 X10*3/uL (0.00-0.03); Imm Gran Pct Auto 0.2 % (0.0-0.4); Lymphocytes Absolute Auto 2.2 X10*3/uL (1.2-4.9); Lymphocytes Percent Auto 24.4 % (20-40); Mean Corpuscular HGB Conc 31.6 g/dl (31.0-35.0); Mean Corpuscular Hemoglobin 25.6 pg (27.0-33.0); Mean Corpuscular Volume 80.9 fL (80-98); Monocytes Absolute Auto 0.8 X10*3/uL (0.1-1.2); Monocytes Percent Auto 8.9 % (2-11); Neutrophils Absolute Auto 5.6 X10*3/uL (2.0-8.3); Neutrophils Percent Auto 62.1 % (45-73); Platelet Count 216 X10*3/uL (160-400); Red Blood Count 5.24 X10*6/uL (4.20-5.50); Red Cell Distribution Width 15.2 % (11.0-16.0)
[2021-05-11 10:18] LABS: Alanine Aminotransferase 24 U/L (0-31); Albumin Level 4.3 g/dL (3.5-5.0); Alkaline Phosphatase 108 U/L (39-117); Anion Gap 12 (12-20); Aspartate Amino Transferase 27 U/L (5-31); Bilirubin Total 0.4 mg/dL (0.0-1.0); Blood Urea Nitrogen 13 mg/dL (9-16); C Reactive Protein 2.76 mg/dL (< or = 0.50); Calcium 9.5 mg/dL (8.4-10.2); Carbon Dioxide 33 mmol/L (22-29); Chloride 103 mmol/L (96-108); Cholesterol 137 mg/dL; Estimated Glomerular Filt Rate > 60; Glucose Random 88 mg/dL (60-115); HDL Cholesterol 40 mg/dL; Iron 33 mcg/dL (30-160); LDL Cholesterol Calculated 89 mg/dl; Percent Iron Saturation 13 % (15-50); Potassium 3.8 mmol/L (3.3-5.1); Sodium 144 mmol/L (135-145); Total Iron Binding Capacity 254 mcg/dL (228-428); Total Protein 6.8 g/dL (6.5-8.0); Triglycerides 44 mg/dL; Unsaturated Iron Binding 221 ug/dL
[2021-05-11 10:33] LABS: Ferritin 299 ng/mL (10-250); TSH reflex Free T4 0.49 uIU/mL (0.32-4.0); Vitamin D 25-OH Total 81.8 ng/mL (>30)
[2021-05-11 10:42] LABS: Estimated Average Glucose 103 mg/dL; Hemoglobin A1c % 5.2 %
[2021-05-11 10:50] LABS: Folate > 20.0 ng/mL (> or = 4.0); Vitamin B12 672 pg/mL (200-900)
[2021-05-14 23:07] LABS: Insulin Level Total 4.3 uIU/mL
[2021-05-15 01:57] LABS: Zinc 83 mcg/dL (60-130)
[2021-05-15 10:02] LABS: Calcium (PTHI) 9.8 mg/dL (8.6-10.2); PTHI 25 pg/mL (14-64)
[2021-05-16 11:03] LABS: Vitamin A 31 mcg/dL (38-98)
[2021-05-17 06:31] LABS: Vitamin B1 25 nmol/L (8-30)
== END 2021-05-11 08:44 | disposition home or self-care (01) ==
LOC: HO.LAB 08:43
PROVIDERS: PCP Internal Medicine; Visit Provider Surgery
DX: R10.9 Unspecified abdominal pain (principal); K91.2 Postsurgical malabsorption, not elsewhere classified; Z90.3 Acquired absence of stomach [part of]
CPT/HCPCS: 36415; 80053; 80061; 82306; 82607; 82728; 82746; 83036; 83525; 83540; 83970; 84425; 84443; 84590; 84630; 85025; 86140

== ENCOUNTER → 2021-06-15 07:15 | Outpatient (BNVA) | payer OTHER, SELFPAY | PROVIDERS: PCP Internal Medicine; Visit Provider Surgery ==

== ENCOUNTER → 2021-07-25 08:15 | Outpatient (BNVA) | payer OTHER, SELFPAY | PROVIDERS: PCP Internal Medicine; Visit Provider Physician Assistant ==

== ENCOUNTER 2021-08-24 08:45 | Outpatient (REF) | payer OTHER, SELFPAY ==
[2021-08-24 10:01] LABS: MANUAL DIFF FLAG NO
[2021-08-24 10:10] LABS: Basophils Percent Auto 0.4 % (0-2); Eosinophils Absolute Auto 0.4 X10*3/uL (0.0-0.4); Hematocrit 42.4 % (37-47); Hemoglobin 13.6 g/dl (12.0-16.0); Imm Gran Abs Auto 0.02 X10*3/uL (0.00-0.03); Imm Gran Pct Auto 0.3 % (0.0-0.4); Lymphocytes Absolute Auto 2.5 X10*3/uL (1.2-4.9); Lymphocytes Percent Auto 35.4 % (20-40); Mean Corpuscular HGB Conc 32.1 g/dl (31.0-35.0); Mean Corpuscular Hemoglobin 27.3 pg (27.0-33.0); Monocytes Absolute Auto 0.6 X10*3/uL (0.1-1.2); Monocytes Percent Auto 8.2 % (2-11); Neutrophils Absolute Auto 3.5 X10*3/uL (2.0-8.3); Neutrophils Percent Auto 50.7 % (45-73); Platelet Count 208 X10*3/uL (160-400); Red Blood Count 4.99 X10*6/uL (4.20-5.50); Red Cell Distribution Width 13.6 % (11.0-16.0)
[2021-08-24 10:25] LABS: Alanine Aminotransferase 22 U/L (0-31); Albumin Level 4.2 g/dL (3.5-5.0); Alkaline Phosphatase 97 U/L (39-117); Anion Gap 10 (12-20); Aspartate Amino Transferase 22 U/L (5-31); Bilirubin Total 0.3 mg/dL (0.0-1.0); Blood Urea Nitrogen 15 mg/dL (9-16); C Reactive Protein 1.27 mg/dL (< or = 0.50); Calcium 9.6 mg/dL (8.4-10.2); Carbon Dioxide 34 mmol/L (22-29); Chloride 104 mmol/L (96-108); Cholesterol 172 mg/dL; Estimated Average Glucose 94 mg/dL; Estimated Glomerular Filt Rate > 60; Glucose Random 85 mg/dL (60-115); HDL Cholesterol 49 mg/dL; Hemoglobin A1c % 4.9 %; Iron 47 mcg/dL (30-160); LDL Cholesterol Calculated 105 mg/dl; Percent Iron Saturation 17 % (15-50); Sodium 144 mmol/L (135-145); Total Iron Binding Capacity 275 mcg/dL (228-428); Total Protein 6.5 g/dL (6.5-8.0); Triglycerides 91 mg/dL; Unsaturated Iron Binding 228 ug/dL
[2021-08-24 10:49] LABS: Ferritin 189 ng/mL (10-250); TSH reflex Free T4 1.78 uIU/mL (0.32-4.0); Vitamin D 25-OH Total 61.3 ng/mL (>30)
[2021-08-24 11:06] LABS: Folate 19.5 ng/mL (> or = 4.0); Vitamin B12 514 pg/mL (200-900)
[2021-08-28 01:12] LABS: Insulin Level Total 4.8 uIU/mL
[2021-08-28 08:47] LABS: Calcium (PTHI) 9.7 mg/dL (8.6-10.2); PTHI 24 pg/mL (14-64)
[2021-08-28 23:01] LABS: Zinc 100 mcg/dL (60-130)
[2021-08-30 10:02] LABS: Vitamin B1 29 nmol/L (8-30)
[2021-08-31 11:20] LABS: Vitamin A 54 mcg/dL (38-98)
== END 2021-08-24 08:46 | disposition home or self-care (01) ==
LOC: HO.LAB 08:45
PROVIDERS: PCP Internal Medicine; Referring Provider Internal Medicine; Visit Provider Physician Assistant
DX: Z98.84 Bariatric surgery status (principal)
CPT/HCPCS: 36415; 80053; 80061; 82306; 82607; 82728; 82746; 83036; 83525; 83540; 83970; 84425; 84443; 84590; 84630; 85025; 86140

== ENCOUNTER → 2021-10-16 13:54 | Outpatient (BNVA) | payer OTHER, SELFPAY | PROVIDERS: PCP Internal Medicine; Visit Provider Physician Assistant ==

== ENCOUNTER → 2021-12-07 08:09 | Outpatient (BNVA) | payer OTHER, SELFPAY | PROVIDERS: PCP Internal Medicine; Visit Provider Physician Assistant | DX: E66.3 Overweight (principal); Z98.84 Bariatric surgery status ==

== ENCOUNTER → 2022-01-18 08:17 | Outpatient (BNVA) | payer OTHER, SELFPAY | PROVIDERS: PCP Internal Medicine; Visit Provider Physician Assistant | DX: E66.3 Overweight (principal); Z98.84 Bariatric surgery status; K91.2 Postsurgical malabsorption, not elsewhere classified; Z90.3 Acquired absence of stomach [part of] ==

== ENCOUNTER 2022-02-01 07:40 | Outpatient (REF) | payer OTHER, SELFPAY ==
[2022-02-01 07:58] LABS: MANUAL DIFF FLAG NO
[2022-02-01 08:06] LABS: Basophils Percent Auto 0.6 % (0-2); Eosinophils Absolute Auto 0.4 X10*3/uL (0.0-0.4); Eosinophils Percent Auto 5.8 % (0-4); Hematocrit 43.1 % (37.0-47.0); Hemoglobin 14.3 g/dl (12.0-16.0); Imm Gran Abs Auto 0.02 X10*3/uL (0.00-0.03); Imm Gran Pct Auto 0.3 % (0.0-0.4); Lymphocytes Absolute Auto 2.6 X10*3/uL (1.2-4.9); Lymphocytes Percent Auto 38.2 % (20-40); Mean Corpuscular HGB Conc 33.2 g/dl (31.0-35.0); Mean Corpuscular Hemoglobin 27.8 pg (27.0-33.0); Mean Corpuscular Volume 83.9 fL (80.0-98.0); Monocytes Absolute Auto 0.6 X10*3/uL (0.1-1.2); Monocytes Percent Auto 8.4 % (2-11); Neutrophils Absolute Auto 3.2 x10*3/uL (2.0-8.3); Neutrophils Percent Auto 46.7 % (45-73); Platelet Count 214 X10*3/uL (160-400); Red Blood Count 5.14 X10*6/uL (4.20-5.50); Red Cell Distribution Width 12.9 % (11.0-16.0); White Blood Count 6.9 X10*3/uL (4.8-10.8)
[2022-02-01 08:23] LABS: Estimated Average Glucose 103 mg/dL; Hemoglobin A1c % 5.2 %
[2022-02-01 08:35] LABS: Alanine Aminotransferase 43 U/L (0-31); Albumin Level 4.3 g/dL (3.5-5.0); Alkaline Phosphatase 82 U/L (39-117); Anion Gap 9 (12-20); Aspartate Amino Transferase 27 U/L (5-31); Bilirubin Total 0.6 mg/dL (0.0-1.0); Blood Urea Nitrogen 16 mg/dL (9-16); C Reactive Protein 0.48 mg/dL (< or = 0.50); Calcium 9.8 mg/dL (8.4-10.2); Carbon Dioxide 36 mmol/L (22-29); Chloride 102 mmol/L (96-108); Cholesterol 178 mg/dL; Estimated Glomerular Filt Rate > 60; Glucose Random 103 mg/dL (60-115); HDL Cholesterol 46 mg/dL; Iron 74 mcg/dL (30-160); LDL Cholesterol Calculated 122 mg/dl; Percent Iron Saturation 22 % (15-50); Potassium 4.3 mmol/L (3.3-5.1); Sodium 143 mmol/L (135-145); Total Iron Binding Capacity 331 mcg/dL (228-428); Total Protein 6.9 g/dL (6.5-8.0); Triglycerides 50 mg/dL; Unsaturated Iron Binding 257 ug/dL
[2022-02-01 08:57] LABS: Ferritin 220 ng/mL (10-250); Insulin 8 uU/mL (2-29); TSH reflex Free T4 1.47 uIU/mL (0.32-4.0); Vitamin D 25-OH Total 58.7 ng/mL (>30)
[2022-02-01 09:13] LABS: Folate 19.5 ng/mL (> or = 4.0); Vitamin B12 740 pg/mL (200-900)
[2022-02-04 13:35] LABS: Calcium (PTHI) 9.4 mg/dL (8.6-10.2); PTHI 30 pg/mL (14-64)
[2022-02-06 01:07] LABS: Zinc 90 mcg/dL (60-130)
[2022-02-06 16:17] LABS: Vitamin B1 22 nmol/L (8-30)
[2022-02-07 10:05] LABS: Vitamin A 73 mcg/dL (38-98)
== END 2022-02-01 07:41 | disposition home or self-care (01) ==
LOC: HO.LAB 07:40
PROVIDERS: PCP Internal Medicine; Visit Provider Physician Assistant
DX: K91.2 Postsurgical malabsorption, not elsewhere classified (principal); Z90.3 Acquired absence of stomach [part of]; Z98.84 Bariatric surgery status
CPT/HCPCS: 36415; 80053; 80061; 82306; 82607; 82728; 82746; 83036; 83525; 83540; 83970; 84425; 84443; 84590; 84630; 85025; 86140

== ENCOUNTER → 2022-02-27 08:37 | Outpatient (BNVA) | payer OTHER, SELFPAY | PROVIDERS: PCP Internal Medicine; Visit Provider Physician Assistant | DX: Z13.89 Encounter for screening for other disorder (principal) ==

== ENCOUNTER → 2022-07-30 09:00 | Outpatient (BNVA) | payer OTHER, SELFPAY | PROVIDERS: PCP Internal Medicine; Referring Provider Physician Assistant; Visit Provider Counselor Mental Health | DX: F32.A Depression, unspecified (principal); Z98.84 Bariatric surgery status | CPT/HCPCS: 90834 ==

== ENCOUNTER → 2022-08-07 11:30 | Outpatient (BNVA) | payer OTHER, SELFPAY | PROVIDERS: PCP Internal Medicine; Visit Provider Counselor Mental Health | DX: F32.A Depression, unspecified (principal); Z98.84 Bariatric surgery status | CPT/HCPCS: 90834 ==

== ENCOUNTER → 2022-09-04 13:15 | Outpatient (BNVA) | payer OTHER, SELFPAY | PROVIDERS: PCP Internal Medicine; Visit Provider Counselor Mental Health | DX: F32.A Depression, unspecified (principal); Z98.84 Bariatric surgery status | CPT/HCPCS: 90832 ==

== ENCOUNTER → 2022-09-25 13:15 | Outpatient (BNVA) | payer OTHER, SELFPAY | PROVIDERS: PCP Internal Medicine; Visit Provider Counselor Mental Health | DX: F32.A Depression, unspecified (principal); Z98.84 Bariatric surgery status | CPT/HCPCS: 90834 ==

== ENCOUNTER → 2022-10-29 10:00 | Outpatient (BNVA) | payer OTHER, SELFPAY | PROVIDERS: PCP Internal Medicine; Visit Provider Counselor Mental Health | DX: F32.A Depression, unspecified (principal); Z98.84 Bariatric surgery status | CPT/HCPCS: 90834 ==

== ENCOUNTER → 2022-11-26 13:30 | Outpatient (BNVA) | payer OTHER, SELFPAY | PROVIDERS: PCP Internal Medicine; Visit Provider Counselor Mental Health | DX: F32.A Depression, unspecified (principal); Z98.84 Bariatric surgery status | CPT/HCPCS: 90832 ==

== ENCOUNTER → 2022-12-04 17:00 | Outpatient (BNVA) | payer OTHER, SELFPAY | PROVIDERS: PCP Internal Medicine; Visit Provider Counselor Mental Health | DX: F32.A Depression, unspecified (principal); Z98.84 Bariatric surgery status | CPT/HCPCS: 90853 ==

== ENCOUNTER → 2022-12-18 17:00 | Outpatient (BNVA) | payer OTHER, SELFPAY | PROVIDERS: PCP Internal Medicine; Visit Provider Counselor Mental Health | DX: F32.A Depression, unspecified (principal); Z98.84 Bariatric surgery status | CPT/HCPCS: 90853 ==

== ENCOUNTER → 2023-01-13 13:14 | Outpatient (BNVA) | payer OTHER, SELFPAY | PROVIDERS: PCP Internal Medicine; Visit Provider Dietitian, Registered | DX: E66.9 Obesity, unspecified (principal); Z68.36 Body mass index [BMI] 36.0-36.9, adult | CPT/HCPCS: 97803 ==

== ENCOUNTER → 2023-01-28 13:30 | Outpatient (BNVA) | payer OTHER, SELFPAY | PROVIDERS: PCP Internal Medicine; Visit Provider Counselor Mental Health | DX: F32.A Depression, unspecified (principal); Z98.84 Bariatric surgery status | CPT/HCPCS: 90834 ==

== ENCOUNTER → 2023-02-04 13:30 | Outpatient (BNVA) | payer OTHER, SELFPAY | PROVIDERS: PCP Internal Medicine; Visit Provider Counselor Mental Health | DX: F32.A Depression, unspecified (principal); Z98.84 Bariatric surgery status | CPT/HCPCS: 90834 ==

== ENCOUNTER 2023-02-10 10:12 | Outpatient (REF) | payer OTHER, SELFPAY ==
[2023-02-10 13:36] LABS: Iron 71 mcg/dL (30-160); Percent Iron Saturation 26 % (15-50); Total Iron Binding Capacity 273 mcg/dL (228-428); Unsaturated Iron Binding 202 ug/dL
[2023-02-10 14:06] LABS: Ferritin 149 ng/mL (10-250); Folate 14.3 ng/mL (> or = 4.0); Vitamin B12 639 pg/mL (200-900); Vitamin D 25-OH Total 42.8 ng/mL (>30)
[2023-02-11 14:54] LABS: PTHI 43 pg/mL (16-77)
[2023-02-13 14:48] LABS: Zinc 73 mcg/dL (60-130)
[2023-02-14 20:09] LABS: Vitamin A 61 mcg/dL (38-98)
[2023-02-15 05:29] LABS: Vitamin B1 18 nmol/L (8-30)
== END 2023-02-10 10:13 | disposition home or self-care (01) ==
LOC: HO.LAB 10:12
PROVIDERS: PCP Internal Medicine; Visit Provider Physician Assistant
DX: E66.9 Obesity, unspecified (principal); K91.2 Postsurgical malabsorption, not elsewhere classified; Z90.3 Acquired absence of stomach [part of]
CPT/HCPCS: 36415; 82306; 82607; 82728; 82746; 83540; 83970; 84425; 84590; 84630

== ENCOUNTER → 2023-02-18 13:30 | Outpatient (BNVA) | payer OTHER, SELFPAY | PROVIDERS: PCP Internal Medicine; Visit Provider Counselor Mental Health ==

== ENCOUNTER → 2023-07-22 13:19 | Outpatient (BNVA) | payer OTHER, SELFPAY | PROVIDERS: PCP Internal Medicine; Visit Provider Dietitian, Registered | DX: E66.9 Obesity, unspecified (principal); Z68.41 Body mass index [BMI] 40.0-44.9, adult | CPT/HCPCS: 97803 ==

== ENCOUNTER → 2023-08-08 13:11 | Outpatient (BNVA) | payer OTHER, SELFPAY | PROVIDERS: PCP Internal Medicine; Visit Provider Dietitian, Registered | DX: E66.9 Obesity, unspecified (principal); Z98.84 Bariatric surgery status; Z71.3 Dietary counseling and surveillance | CPT/HCPCS: 97803 ==

== ENCOUNTER 2023-08-21 10:30 | Outpatient (AMB) | payer OTHER, SELFPAY ==
--- NOTE | 2023-08-21 10:51 | A.OFFVIS_ITS ---
Intake Intake Visit Reasons: VIDEO PO LSG 12/07/20 Allergies No Known Allergies Allergy (Verified 12/13/20 07:49) HPI HPI Comments History of Present Illness Details Pt is 2 years and 8 months s/p LSG and has been struggling with weight gain issues, has been seeing Bonita and Amalia regularly. 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 Feels that she is in a better place to work on her binge eating behaviors. Has not been taking her vitamins in a while. She attended Workshop last night. She has continued to gain weight. 3 - 8oz Lactaid and Pure protein shake 1 meal of 3 oz and 3 oz Walks 45 minutes - 2 miles (20- 22 minute mile). 5 days per week. [facility] Medical History (Updated 08/07/22 @ 12:56 by Bonita Williamson) Obesity Liver fibrosis Steatosis, liver Intra-abdominal adhesions Diaphragmatic hernia Arthritis Back pain History of anxiety Positive H. pylori test Degenerative joint disease GERD (gastroesophageal reflux disease) Asthma Depression Sleep apnea with use of continuous positive airway pressure (CPAP) Hypertension Surgical History History of endometrial ablation H/O umbilical hernia repair Morbid obesity Hx of section Hx of cholecystectomy Family History Mother Asthma Hypertension Diabetes HX: breast cancer Father No problems noted. Sister No problems noted. Daughter No problems noted. Son Asthma Social History Household Members: Family Are you a primary director day care center to a significant other at home: No Do you presently have visiting nurse or other home services: No Alcohol intake: never service: No Current occupational status: employed Assessment & Plan Assessment & Plan (1) Morbid obesity: Code(s): E66.01 - Morbid (severe) obesity due to excess calories Plan: Will continue to work with Amalia (weekly weights) and Bonita. Walk- wehn ready - alternate easy and hard walks - 2 mile s- 4 miles - flat and hills. Post op labs ordered today, will follow up with me in December for 3 year appt. Patient is still morbidly obese and is not considered stable at this time. I spent 15 minutes in total speaking with the patient via video conference counseling , reviewing records and charting in patients chart. . (2) S/P laparoscopic sleeve gastrectomy: Code(s): Z98.84 - Bariatric surgery status Orders: Orders Insulin Today E66.3 - Overweight, Z98.84 - Bariatric surgery status Lipid Panel Today E66.3 - Overweight, Z98.84 - Bariatric surgery status Complete Blood Count Auto Diff Today E66.3 - Overweight, Z98.84 - Bariatric surgery status Vitamin B12 and Folate Today E66.3 - Overweight, Z98.84 - Bariatric surgery status Zinc Today E66.3 - Overweight, Z98.84 - Bariatric surgery status Comprehensive Met. Panel Today E66.3 - Overweight, Z98.84 - Bariatric surgery status Vitamin B1 Today E66.3 - Overweight, Z98.84 - Bariatric surgery status Vitamin A Today E66.3 - Overweight, Z98.84 - Bariatric surgery status Ferritin Today E66.3 - Overweight, Z98.84 - Bariatric surgery status PTHI Today E66.3 - Overweight, Z98.84 - Bariatric surgery status Hemoglobin A1c Today E66.3 - Overweight, Z98.84 - Bariatric surgery status IRON PROFILE Today E66.3 - Overweight, Z98.84 - Bariatric surgery status C Reactive Protein Today E66.3 - Overweight, Z98.84 - Bariatric surgery status TSH reflex Free T4 Today E66.3 - Overweight, Z98.84 - Bariatric surgery status Vitamin D 25-OH Total Today E66.3 - Overweight, Z98.84 - Bariatric surgery status Telehealth Telehealth Location of provider rendering services: practice address Location of patient: address on file Patient Identification confirmed using: Name, : Yes Telehealth method: voice only Patient verbally consented to treatment: Yes Patient verbally consented to billing insurance company: Yes Patient informed of any privacy concerns related to visit: Yes Coding Level of Care Code Tele Est Pt Level 3 (60134) Diagnoses Morbid obesity E66.01 S/P laparoscopic sleeve gastrectomy Z98.84
== END 2023-08-21 11:00 | disposition home or self-care (01) ==
LOC: HO.HBS 10:52
PROVIDERS: PCP Internal Medicine; Visit Provider Physician Assistant
DX: E66.01 Morbid (severe) obesity due to excess calories (principal); Z98.84 Bariatric surgery status; Z68.41 Body mass index [BMI] 40.0-44.9, adult
CPT/HCPCS: 99442

== ENCOUNTER → 2023-08-21 10:30 | Outpatient (BNVA) | payer OTHER, SELFPAY | PROVIDERS: PCP Internal Medicine; Visit Provider Physician Assistant ==

== ENCOUNTER 2023-08-23 08:35 | Outpatient (REF) | payer OTHER, SELFPAY ==
[2023-08-23 09:15] LABS: MANUAL DIFF FLAG NO
[2023-08-23 09:23] LABS: Basophils Absolute Auto 0.1 X10*3/uL (0.0-0.2); Basophils Percent Auto 0.6 % (0-2); Eosinophils Absolute Auto 0.3 X10*3/uL (0.0-0.4); Eosinophils Percent Auto 3.4 % (0-4); Hematocrit 42.2 % (37.0-47.0); Hemoglobin 13.5 g/dl (12.0-16.0); Imm Gran Abs Auto 0.03 X10*3/uL (0.00-0.03); Imm Gran Pct Auto 0.4 % (0.0-0.4); Lymphocytes Absolute Auto 2.4 X10*3/uL (1.2-4.9); Lymphocytes Percent Auto 30.9 % (20-40); Mean Corpuscular Hemoglobin 26.4 pg (27.0-33.0); Mean Corpuscular Volume 82.6 fL (80.0-98.0); Mean Platelet Volume 9.4 fL (9.4-12.3); Monocytes Absolute Auto 0.7 X10*3/uL (0.1-1.2); Monocytes Percent Auto 8.6 % (2-11); Neutrophils Absolute Auto 4.3 x10*3/uL (2.0-8.3); Neutrophils Percent Auto 56.1 % (45-73); Platelet Count 232 X10*3/uL (160-400); Red Blood Count 5.11 X10*6/uL (4.20-5.50); Red Cell Distribution Width 13.5 % (11.0-16.0); White Blood Count 7.7 X10*3/uL (4.8-10.8)
[2023-08-23 09:59] LABS: Alanine Aminotransferase 43 U/L (0-31); Albumin Level 4.1 g/dL (3.5-5.0); Alkaline Phosphatase 95 U/L (39-117); Anion Gap 16 (12-20); Aspartate Amino Transferase 33 U/L (5-31); Bilirubin Total 0.4 mg/dL (0.0-1.0); Blood Urea Nitrogen 15 mg/dL (9-16); C Reactive Protein 1.48 mg/dL (< or = 0.50); Calcium 9.4 mg/dL (8.4-10.2); Carbon Dioxide 27 mmol/L (22-29); Chloride 104 mmol/L (96-108); Cholesterol 162 mg/dL (<200); Estimated Glomerular Filt Rate > 60; Glucose Random 110 mg/dL (60-115); HDL Cholesterol 40 mg/dL (>40); Iron 48 mcg/dL (30-160); LDL Cholesterol Calculated 105 mg/dL (<100); Percent Iron Saturation 19 % (15-50); Sodium 143 mmol/L (135-145); Total Iron Binding Capacity 259 mcg/dL (228-428); Total Protein 7.1 g/dL (6.5-8.0); Triglycerides 87 mg/dL (<150); Unsaturated Iron Binding 211 ug/dL
[2023-08-23 10:20] LABS: Ferritin 158 ng/mL (10-250); Insulin 12 uU/mL (2-29); TSH reflex Free T4 1.37 uIU/mL (0.32-4.0); Vitamin D 25-OH Total 45.2 ng/mL (>30)
[2023-08-23 10:27] LABS: Folate 11.7 ng/mL (> or = 4.0); Vitamin B12 468 pg/mL (200-900)
[2023-08-23 10:52] LABS: Estimated Average Glucose 108 mg/dL; Hemoglobin A1c % 5.4 % (<6.0)
[2023-08-25 14:38] LABS: Calcium (PTHI) 9.3 mg/dL (8.6-10.2); PTHI 39 pg/mL (16-77)
[2023-08-26 13:53] LABS: Zinc 106 mcg/dL (60-130)
[2023-08-28 22:59] LABS: Vitamin A 57 mcg/dL (38-98)
[2023-08-29 17:13] LABS: Vitamin B1 14 nmol/L (8-30)
== END 2023-08-23 08:36 | disposition home or self-care (01) ==
LOC: HO.LAB 08:35
PROVIDERS: PCP Internal Medicine; Visit Provider Physician Assistant
DX: E66.3 Overweight (principal); Z98.84 Bariatric surgery status
CPT/HCPCS: 36415; 80053; 80061; 82306; 82607; 82728; 82746; 83036; 83525; 83540; 83970; 84425; 84443; 84590; 84630; 85025; 86140

== ENCOUNTER 2023-08-26 14:05 | Outpatient (AMB) | payer OTHER, SELFPAY ==
--- NOTE | 2023-08-27 11:29 | A.OFFWM_ITS ---
Intake Intake Visit Reasons: VIDEO PO LSG 12/07/20 Allergies No Known Allergies Allergy (Verified 12/13/20 07:49) [facility] Medical History (Updated 08/07/22 @ 12:56 by Bonita Williamson) Obesity Liver fibrosis Steatosis, liver Intra-abdominal adhesions Diaphragmatic hernia Arthritis Back pain History of anxiety Positive H. pylori test Degenerative joint disease GERD (gastroesophageal reflux disease) Asthma Depression Sleep apnea with use of continuous positive airway pressure (CPAP) Hypertension Surgical History History of endometrial ablation H/O umbilical hernia repair Morbid obesity Hx of section Hx of cholecystectomy Family History Mother Asthma Hypertension Diabetes HX: breast cancer Father No problems noted. Sister No problems noted. Daughter No problems noted. Son Asthma Social History Household Members: Family Are you a primary tree care foreman to a significant other at home: No Do you presently have visiting nurse or other home services: No Alcohol intake: never service: No Current occupational status: employed Behavioral Health Assessment Weight Management Therapy Therapy Notes Details Patient returns to therapy after some time away. She attended the workshop last week as well. Nora reported that she continues to struggle with weight gain and emotional eating (negative and celebratory). She does not know how to stop herself and needs structure. Her divorce is now final and she feel she can move on. Also in a very safe and healthy relationship with someone. She worries though that his unhealthy habits might be bad for her. Pt discussed her why in depth and was encouraged to go home and journal all the reason why she is doping this and why she wants to achieve her goals. This will be used to reinforce these thoughts everyday and put into action. Assessment & Plan Assessment & Plan (1) Depressive disorder: Code(s): F32.A - Depression, unspecified (2) S/P laparoscopic sleeve gastrectomy: Code(s): Z98.84 - Bariatric surgery status Plan Pt is struggling with emotional eating since her traumatic ending to her marriage and divorce. She is seeking therapy to help address her eating, depression, and stress. Patient will start EMDR. She would also benefit from group therapy. Pt stated that EMDR in the past felt awkward and not sure she wants to proceed. She might be open to trying again in person. Telehealth Telehealth Location of provider rendering services: other Location of patient: other Patient Identification confirmed using: Name, : Yes Telehealth method: video Patient verbally consented to treatment: Yes Patient verbally consented to billing insurance company: Yes Patient informed of any privacy concerns related to visit: Yes Minutes spent on Phone/Video with Pt.: 49 Coding Level of Care Code Tele Psytx 45 mins (71609) Diagnoses Depressive disorder F32.A S/P laparoscopic sleeve gastrectomy Z98.84 Time Spent (min) 49
== END 2023-08-27 11:29 | disposition home or self-care (01) ==
LOC: HO.HBST 14:05
PROVIDERS: PCP Internal Medicine; Visit Provider Counselor Mental Health
DX: F32.A Depression, unspecified (principal); Z98.84 Bariatric surgery status
CPT/HCPCS: 90834

== ENCOUNTER → 2023-08-26 14:05 | Outpatient (BNVA) | payer OTHER, SELFPAY | PROVIDERS: PCP Internal Medicine; Visit Provider Counselor Mental Health ==

== ENCOUNTER 2023-09-10 19:30 | Outpatient (AMB) | payer OTHER, SELFPAY ==
--- NOTE | 2023-09-29 11:28 | A.OFFWM_ITS ---
Intake Intake Visit Reasons: Group Therapy Allergies No Known Allergies Allergy (Verified 12/13/20 07:49) [facility] Medical History (Updated 08/07/22 @ 12:56 by Bonita Williamson) Obesity Liver fibrosis Steatosis, liver Intra-abdominal adhesions Diaphragmatic hernia Arthritis Back pain History of anxiety Positive H. pylori test Degenerative joint disease GERD (gastroesophageal reflux disease) Asthma Depression Sleep apnea with use of continuous positive airway pressure (CPAP) Hypertension Surgical History History of endometrial ablation H/O umbilical hernia repair Morbid obesity Hx of section Hx of cholecystectomy Family History Mother Asthma Hypertension Diabetes HX: breast cancer Father No problems noted. Sister No problems noted. Daughter No problems noted. Son Asthma Social History Household Members: Family Are you a primary healthcare economics consultant to a significant other at home: No Do you presently have visiting nurse or other home services: No Alcohol intake: never service: No Current occupational status: employed Behavioral Health Assessment Weight Management Therapy Therapy Notes0 Details Group therapy on fear and seven steps to help.Pt shared with the group her recent struggles, She was engaged and supportive to others. Pt is working on getting back on track and working on her health goals after 60lbs weight gain since bariatric surgery. She feels like when she lost the initial weight, it was very robotic and she did not get to the root cause of her emotional struggles. She was always taught to take care of others, there was no space for her emotional or physical needs. Also the ending of her marriage and subsequent divorce was traumatic. Her ex left her and her children moving to another country. Pt stated that she is working on prirotizing her needs before caring for others. Assessment & Plan Assessment & Plan (1) Depressive disorder: Code(s): F32.A - Depression, unspecified (2) S/P laparoscopic sleeve gastrectomy: Code(s): Z98.84 - Bariatric surgery status Plan Pt is struggling with emotional eating since her traumatic ending to her marriage and divorce. She is seeking therapy to help address her eating, depression, and stress. Patient will start EMDR. She would also benefit from group therapy. Pt stated that EMDR in the past felt awkward and not sure she wants to proceed. She might be open to trying again in person. Coding Level of Care Code Grp Psych ([id number]) Diagnoses Depressive disorder F32.A S/P laparoscopic sleeve gastrectomy Z98.84 Time Spent (min) 60
== END 2023-09-11 13:18 | disposition home or self-care (01) ==
LOC: HO.HBST 19:30
PROVIDERS: PCP Internal Medicine; Visit Provider Counselor Mental Health
DX: F32.A Depression, unspecified (principal); Z98.84 Bariatric surgery status

== ENCOUNTER → 2023-09-10 19:30 | Outpatient (BNVA) | payer OTHER, SELFPAY | PROVIDERS: PCP Internal Medicine; Visit Provider Counselor Mental Health | DX: F32.A Depression, unspecified (principal); Z98.84 Bariatric surgery status | CPT/HCPCS: 90853 ==

== ENCOUNTER 2023-09-12 11:03 | Outpatient (AMB) | payer OTHER, SELFPAY ==
--- NOTE | 2023-09-12 11:48 | MHC.WMTHER ---
Intake Intake Visit Reasons: VIDEO PO LSG 12/07/20 Allergies No Known Allergies Allergy (Verified 12/13/20 07:49) [facility] Medical History (Updated 08/07/22 @ 12:56 by Bonita Williamson) Obesity Liver fibrosis Steatosis, liver Intra-abdominal adhesions Diaphragmatic hernia Arthritis Back pain History of anxiety Positive H. pylori test Degenerative joint disease GERD (gastroesophageal reflux disease) Asthma Depression Sleep apnea with use of continuous positive airway pressure (CPAP) Hypertension Surgical History History of endometrial ablation H/O umbilical hernia repair Morbid obesity Hx of section Hx of cholecystectomy Family History Mother Asthma Hypertension Diabetes HX: breast cancer Father No problems noted. Sister No problems noted. Daughter No problems noted. Son Asthma Social History Household Members: Family Are you a primary healthcare representative to a significant other at home: No Do you presently have visiting nurse or other home services: No Alcohol intake: never service: No Current occupational status: employed Behavioral Health Assessment Weight Management Therapy Therapy Notes Details Pt is working on getting back on track and working on her health goals after 60lbs weight gain since bariatric surgery. She feels like when she lost the initial weight, it was very robotic and she did not get to the root cause of her emotional struggles. She was always taught to take care of others, there was no space for her emotional or physical needs. Also the ending of her marriage and subsequent divorce was traumatic. Her ex left her and her children moving to another country. Pt stated that she is working on prirotizing her needs before caring for others. Assessment & Plan Assessment & Plan (1) Depressive disorder: Code(s): F32.A - Depression, unspecified (2) S/P laparoscopic sleeve gastrectomy: Code(s): Z98.84 - Bariatric surgery status Plan Pt is struggling with emotional eating since her traumatic ending to her marriage and divorce. She is seeking therapy to help address her eating, depression, and stress. Patient will start EMDR. She would also benefit from group therapy. Pt stated that EMDR in the past felt awkward and not sure she wants to proceed. She might be open to trying again in person. Telehealth Telehealth Location of provider rendering services: other Location of patient: other Patient Identification confirmed using: Name, : Yes Telehealth method: video Patient verbally consented to treatment: Yes Patient verbally consented to billing insurance company: Yes Patient informed of any privacy concerns related to visit: Yes Minutes spent on Phone/Video with Pt.: 48 Coding Level of Care Code Tele Psytx 45 mins ([id number]) Diagnoses Depressive disorder F32.A S/P laparoscopic sleeve gastrectomy Z98.84 Time Spent (min) 48
== END 2023-09-12 11:48 | disposition home or self-care (01) ==
LOC: HO.HBST 11:03
PROVIDERS: PCP Internal Medicine; Visit Provider Counselor Mental Health
DX: F32.A Depression, unspecified (principal); Z98.84 Bariatric surgery status
CPT/HCPCS: 90834

== ENCOUNTER → 2023-09-12 11:03 | Outpatient (BNVA) | payer OTHER, SELFPAY | PROVIDERS: PCP Internal Medicine; Visit Provider Counselor Mental Health ==

== ENCOUNTER → 2023-09-17 17:00 | Outpatient (BNVA) | payer OTHER, SELFPAY | PROVIDERS: PCP Internal Medicine; Visit Provider Counselor Mental Health ==

== ENCOUNTER 2023-09-23 14:05 | Outpatient (AMB) | payer OTHER, SELFPAY ==
--- NOTE | 2023-09-23 15:03 | MHC.WMTHER ---
Intake Intake Visit Reasons: VIDEO PO LSG 12/07/20 Allergies No Known Allergies Allergy (Verified 12/13/20 07:49) [facility] Medical History (Updated 08/07/22 @ 12:56 by Bonita Williamson) Obesity Liver fibrosis Steatosis, liver Intra-abdominal adhesions Diaphragmatic hernia Arthritis Back pain History of anxiety Positive H. pylori test Degenerative joint disease GERD (gastroesophageal reflux disease) Asthma Depression Sleep apnea with use of continuous positive airway pressure (CPAP) Hypertension Surgical History History of endometrial ablation H/O umbilical hernia repair Morbid obesity Hx of section Hx of cholecystectomy Family History Mother Asthma Hypertension Diabetes HX: breast cancer Father No problems noted. Sister No problems noted. Daughter No problems noted. Son Asthma Social History Household Members: Family Are you a primary medical care evaluation specialist to a significant other at home: No Do you presently have visiting nurse or other home services: No Alcohol intake: never service: No Current occupational status: employed Behavioral Health Assessment Weight Management Therapy Therapy Notes Details Nora is doing well, is learning how to live more balanced and not having all or nothing mindset . She has been making changes towards her goals. Struggled yesterday a bit to cope with difficult emotions. She ended up binging however reported this has only happened once since restarting. She has been walking daily on her lunch break as well which has helped. Pt is working on getting back on track and working on her health goals after 60lbs weight gain since bariatric surgery. She feels like when she lost the initial weight, it was very robotic and she did not get to the root cause of her emotional struggles. She was always taught to take care of others, there was no space for her emotional or physical needs. Also the ending of her marriage and subsequent divorce was traumatic. Her ex left her and her children moving to another country. Pt stated that she is working on prirotizing her needs before caring for others. Assessment & Plan Assessment & Plan (1) Depressive disorder: Code(s): F32.A - Depression, unspecified (2) S/P laparoscopic sleeve gastrectomy: Code(s): Z98.84 - Bariatric surgery status Plan Pt is struggling with emotional eating since her traumatic ending to her marriage and divorce. She is seeking therapy to help address her eating, depression, and stress. Patient will start EMDR. She would also benefit from group therapy. Pt stated that EMDR in the past felt awkward and not sure she wants to proceed. She might be open to trying again in person. Telehealth Telehealth Location of provider rendering services: other Location of patient: other Patient Identification confirmed using: Name, : Yes Telehealth method: video Patient verbally consented to treatment: Yes Patient verbally consented to billing insurance company: Yes Patient informed of any privacy concerns related to visit: Yes Minutes spent on Phone/Video with Pt.: 48 Coding Level of Care Code Tele Psytx 45 mins ([id number]) Diagnoses Depressive disorder F32.A S/P laparoscopic sleeve gastrectomy Z98.84 Time Spent (min) 48
== END 2023-09-23 15:03 | disposition home or self-care (01) ==
LOC: HO.HBST 14:05
PROVIDERS: PCP Internal Medicine; Visit Provider Counselor Mental Health
DX: F32.A Depression, unspecified (principal); Z98.84 Bariatric surgery status
CPT/HCPCS: 90834

== ENCOUNTER → 2023-09-23 14:05 | Outpatient (BNVA) | payer OTHER, SELFPAY | PROVIDERS: PCP Internal Medicine; Visit Provider Counselor Mental Health ==

== ENCOUNTER → 2023-10-07 14:05 | Outpatient (BNVA) | payer OTHER, SELFPAY | PROVIDERS: PCP Internal Medicine; Visit Provider Counselor Mental Health ==

== ENCOUNTER → 2023-10-07 14:05 | Outpatient (BNVA) | payer OTHER, SELFPAY | PROVIDERS: PCP Internal Medicine; Visit Provider Counselor Mental Health ==

== ENCOUNTER 2023-12-18 09:30 | Outpatient (AMB) | payer OTHER, SELFPAY ==
--- NOTE | 2023-12-18 09:35 | A.OFFVIS_ITS ---
Intake VS Expanded 12/18/23 09:36 Height 5 ft 1 in Weight 220 lb BMI 41.6 Intake Visit Reasons: VIDEO PO LSG 12/07/20 Allergies No Known Allergies Allergy (Verified 12/13/20 07:49) Medication List - Last Reconciled 12/18/23 by Natali Romo PA-C calcium citrate-vitamin D2 250 mg-2.5 mcg (100 unit) (Juancho-Citrate) tabs PO lisinopril 5 mg PO DAILY loratadine (Claritin Liqui-Gel) 10 mg PO DAILY pantoprazole 40 mg PO DAILY 90 days paroxetine HCl (Paxil) 20 mg PO DAILY HPI HPI Comments History of Present Illness Details Pt is now 3 years s/p LSG. She states she has continued to gain weight and has now regained 80 lbs since her lowest weight. She believes her weight gain has been due to grazing, junk food, was drinking 1- 2 bottles of wine per day and not exercising. She has a history of binge eating and attened [employer] program in the past. She states she is no longer binging over the last month. She attended Dr Grimaldo's post op class this month ETOH now - 3d/week, 3-5 glasses of wine. No therapist, states can not afford it. Had full post op labs done in August 2023. Post op complications: none JAYDON: still using CPAP DM; never HTN: on meds Hyperlipidemia: never GERD: buring in throat even with pantoprazole Satisfaction with present condition - Not satisfied [facility] Medical History (Updated 12/18/23 @ 10:07 by Natali Romo PA-C) Obesity Liver fibrosis Steatosis, liver Intra-abdominal adhesions Diaphragmatic hernia Arthritis Back pain History of anxiety Positive H. pylori test Degenerative joint disease GERD (gastroesophageal reflux disease) Asthma Depression Sleep apnea with use of continuous positive airway pressure (CPAP) Hypertension Surgical History History of endometrial ablation H/O umbilical hernia repair Morbid obesity Hx of section Hx of cholecystectomy Family History Mother Asthma Hypertension Diabetes HX: breast cancer Father No problems noted. Sister No problems noted. Daughter No problems noted. Son Asthma Social History Household Members: Family Are you a primary medical care manager to a significant other at home: No Do you presently have visiting nurse or other home services: No Alcohol intake: never service: No Current occupational status: employed Physical Exam Vital Signs: BMI result Body Mass Index 41.6 Assessment & Plan Assessment & Plan (1) Obesity: Code(s): E66.9 - Obesity, unspecified Plan: 3 years post op. Has ETOH dependence and still has episodes of binge eating. We had a lengthy discussion regarding options for her weight loss. I believe she needs BH support and treatment for her substance dependence and that she will likely not have continued progression until she is able to work on these issues regularly. She will search on Psychology [id number] in hopes of finding a therapist. She wants to restart 3 shakes, 1 meal and 1 bar per day - I concurred. I told her she needs to stop drinking ETOH. We discussed some options. I advised her to restart her bicycle at home daily for stress/anxiety reduction - 300 calories per day. We talked about her thinking more about all of this and deciding what she feels able to do now - will have follow up in 2 weeks with me. Patient is now morbidly obese and is not considered stable at this time. I spent 33 minutes in total speaking with the patient via video conference counseling , reviewing records and charting in patients chart. . (2) S/P laparoscopic sleeve gastrectomy: Code(s): Z98.84 - Bariatric surgery status Plan: see above (3) Alcohol dependence: Code(s): F10.20 - Alcohol dependence, uncomplicated (4) Binge eating: Code(s): R63.2 - Polyphagia Plan see above Telehealth Telehealth Location of provider rendering services: practice address Location of patient: address on file Patient Identification confirmed using: Name, : Yes Telehealth method: video Patient verbally consented to treatment: Yes Patient verbally consented to billing insurance company: Yes Patient informed of any privacy concerns related to visit: Yes Coding Level of Care Code Tele Est Pt Level 4 (42011) Diagnoses Obesity E66.9 S/P laparoscopic sleeve gastrectomy Z98.84 Alcohol dependence F10.20 Binge eating R63.2
[2023-12-18 09:36] VITALS: BMI 41.6
== END 2023-12-18 11:45 | disposition home or self-care (01) ==
LOC: HO.HBS 09:51
PROVIDERS: PCP Internal Medicine; Visit Provider Physician Assistant
DX: E66.9 Obesity, unspecified (principal); Z68.41 Body mass index [BMI] 40.0-44.9, adult; Z98.84 Bariatric surgery status; R63.2 Polyphagia; F10.20 Alcohol dependence, uncomplicated
CPT/HCPCS: 99214

== ENCOUNTER → 2023-12-18 09:30 | Outpatient (BNVA) | payer OTHER, SELFPAY | PROVIDERS: PCP Internal Medicine; Visit Provider Physician Assistant ==

== ENCOUNTER 2024-01-05 08:30 | Outpatient (AMB) | payer OTHER, SELFPAY ==
--- NOTE | 2024-01-05 08:35 | A.OFFVIS_ITS ---
Intake VS Expanded 01/05/24 08:40 Height 5 ft Weight 220 lb BMI 43.0 Intake Visit Reasons: VIDEO PO LSG 12/07/20 Allergies No Known Allergies Allergy (Verified 12/13/20 07:49) HPI HPI Comments History of Present Illness Details This is follow up post op 3 years s/p LSG with previous ETOH dependence. Has only drank twice over the last month. She also got a [employer] membership. Will start today. Exericise - will start today No snacking no junk food. Will stop 5:30 1/2 cup berries 9am - shake, 8 oz Lactaid 12pm - shake 2pm - bar 5-6 pm - 3-4 oz each protein and vegetab les after dinner - pretzels and hummus OR 12 almonds [facility] Medical History (Updated 12/18/23 @ 10:07 by Natali Romo PA-C) Obesity Liver fibrosis Steatosis, liver Intra-abdominal adhesions Diaphragmatic hernia Arthritis Back pain History of anxiety Positive H. pylori test Degenerative joint disease GERD (gastroesophageal reflux disease) Asthma Depression Sleep apnea with use of continuous positive airway pressure (CPAP) Hypertension Surgical History History of endometrial ablation H/O umbilical hernia repair Morbid obesity Hx of section Hx of cholecystectomy Family History Mother Asthma Hypertension Diabetes HX: breast cancer Father No problems noted. Sister No problems noted. Daughter No problems noted. Son Asthma Social History Household Members: Family Are you a primary manager medicare marketing to a significant other at home: No Do you presently have visiting nurse or other home services: No Alcohol intake: never service: No Current occupational status: employed Assessment & Plan Assessment & Plan (1) Morbid obesity: Code(s): E66.01 - Morbid (severe) obesity due to excess calories Plan: 3+ years s/p LSG morbidly obese again. She has stoppe dthe ETOH use but is still having some throat pain . I will add carafate and she will stop coffee completely, sympotms should then resolve within a few weeks. If not she will let me know. Is now ready to change lifestyle Exercise - 4-5d/ week elliptical 350 calories (10/lashonda minute). Alternate with recumbent bike. Circuit room - 10/10/20 lbs. 8am - shake - 8 oz water UAM 12 pm - shake 3pm - yogurt and berries OR protein bar 6-7 pm - 3-4 oz each protein and vegetables After dinner 4-6 raw almonds OK as needed. Continue pantoprazole and start carafate bid. Text me weekly weights until she develops healthy routines again. Next appt with Amalia in 3-4 weeks. Patient is still morbidly obese and is not considered stable at this time. I spent 30 minutes in total speaking with the patient via video conference counseling , reviewing records and charting in patients chart. . Medications: New sucralfate (Carafate) 1 g PO BID 60 tabs 2RF Telehealth Telehealth Location of provider rendering services: practice address Location of patient: address on file Patient Identification confirmed using: Name, : Yes Telehealth method: video Patient verbally consented to treatment: Yes Patient verbally consented to billing insurance company: Yes Patient informed of any privacy concerns related to visit: Yes Coding Level of Care Code Est Pt Level 4 (28460) Diagnoses Morbid obesity E66.01
[2024-01-05 08:40] VITALS: BMI 43.0
== END 2024-01-05 08:56 | disposition home or self-care (01) ==
LOC: HO.HBS 08:39
PROVIDERS: PCP Internal Medicine; Visit Provider Physician Assistant
DX: E66.01 Morbid (severe) obesity due to excess calories (principal)
CPT/HCPCS: 99214

== ENCOUNTER → 2024-01-05 08:30 | Outpatient (BNVA) | payer OTHER, SELFPAY | PROVIDERS: PCP Internal Medicine; Visit Provider Physician Assistant ==

== ENCOUNTER 2025-10-13 09:10 | Outpatient (AMB) | payer OTHER, SELFPAY ==
--- OUTSIDE RECORDS SUMMARY | 2025-01-13 11:30 | XMS_ITS ---
Author Organization [facility] Address [address] [place] [address] Care Team Providers Care Back Tacker Name Role Phone TedHong burkett Primary Care Provider [phone] ALLERGIES No Known Allergies REASON FOR VISIT (IN OFFICE), Follow Up MEDICATIONS Medication SIG (Take, Route, Frequency, Duration) Notes Start Date End Date Status Desvenlafaxine Succinate ER 50 MG 1 tablet Orally Once a day for 90 days Active CPAP Supplies . Use as directed . Daily Active Lisinopril 10 MG TAKE 1 TABLET BY MIGUELANGEL TH EVERY DAY for 90 Active Replacement CPAP Machine with accessories 12cm of H20 Intranasally Daily Active Meloxicam 15 MG TAKE 1 TABLET BY MIGUELANGEL TH EVERY DAY FOR 90 DAYS for 90 Active Lisinopril 10 MG TAKE 1 TABLET BY MIGUELANGEL TH EVERY DAY Active Pantoprazole Sodium 40 MG 1 tablet Orall y Once a day Active Fluticasone Propionate 50 MCG/ACT SPRAY 1 SPRAY INTO EACH NOSTRIL EVERY DAY for 30 Active Nystatin-Triamcinolone 611817-8.1 UNIT/GM 1 application Externally Twice a day for 14 days 11/06/2022 Active Multivitamins Active Albuterol Sulfate HFA Active Cyclobenzaprine HCl 5 MG 1 tablet at bed time as needed Orally Once a day Active Desvenlafaxine Succinate ER 100 MG 1 tablet Orally Once a day for 90 Days Active Meloxicam 15 MG 1 tablet Orally Once a day for 90 Days Active SOCIAL HISTORY Tobacco Use: Social History Observation Description Date Details (start date - stop date) Never Smoker NA - NA Sex Assigned At : Social History Observation Description Sex Assigned At Unknown Tobacco Use/Smoking Question Answer Notes Are you a nonsmoker Alcohol Screen Question Answer Notes Did you have a drink contain ing alcohol in the past year? Yes How often did you have a dri nk containing alcohol in the past year? 2 to 4 times a month (2 points) How many drinks did you have on a typical day when you were drinking in the past year? 1 or 2 drinks (0 point) How often did you have 6 or more drinks on one occasion in the past year? Never (0 point) Points 2 Interpretation Negative Section Notes: Works at [employer] VITAL SIGNS Blood pressure systolic 124 mm Hg 01/13/20 25 Blood pressure diastolic 74 mm Hg 025 Heart Rate 78 /min 01/13/2025 Height 62 in 01/13/2025 Weight 217.4 lbs 01/13/2025 BMI 39.76 kg/m2 01/13/2025 Encounters Encounter Location Date Provider Diagnosis [address] [address] 01/13/2025 Hong Patel LGSIL on Pap smear o f cervix R87.612 ; Essential hypertension I10 ; ETOH abuse F10.10 ; Current moderate episode of major depressive disorder without prior episode F32.1 ; Primary osteoarthritis involving multiple joints M15.0 ; Mild intermittent asthma without complication J45.20 ; Gastroesophageal reflux disease without esophagitis K21.9 ; Arthralgia of right temporomandibular joint M26.621 ; Atrophic vaginitis N95.2 ; Obstructive sleep apnea G47.33 ; Other obesity due to excess calories E66.09 and Anxiety F41.9 ASSESSMENTS Encounter Date Diagnosis Assessment Notes Treatment Notes Treatment Clinical Notes Section Notes 01/13/2025 LGSIL on Pap smear o f cervix (ICD-10 - R87.612) 01/13/2025 Essential hypertension (ICD-10 - I10) 01/13/2025 ETOH abuse (ICD-10 - F10.10) 01/13/2025 Current moderate episode of major depressive disorder without prior episode (ICD-10 - F32.1) 01/13/2025 Primary osteoarthritis involving multiple joints (ICD-10 - M15.0) 01/13/2025 Mild intermittent asthma without complication (ICD-10 - J45.20) 01/13/2025 Gastroesophageal reflux disease without esophagitis (ICD-10 - K21.9) 01/13/2025 Arthralgia of right temporomandibular joint (ICD-10 - M26.621) 01/13/2025 Atrophic vaginitis (ICD-10 - N95.2) 01/13/2025 Obstructive sleep apnea (ICD-10 - G47.33) 01/13/2025 Other obesity due to excess calories (ICD-10 - E66.09) Discussed healthy eating habits. Patient seeing weight management PA and has therapist to discuss binge eating 01/13/2025 Anxiety (ICD-10 - F41.9) 01/13/2025 Other This chart has been transcribed by a computerized dictation system. There are likely to be multiple healthcare project manager inaccuracies despite chart review. PLAN OF TREATMENT Medication Medication Name Sig Start Date Stop Date Notes CPAP Supplies . Use as directed . Daily Replacement CPAP Machine wit h accessories 12cm of H20 Intranasally Daily Lisinopril 10 MG TAKE 1 TABLET BY MIGUELANGEL TH EVERY DAY Pantoprazole Sodium 40 MG 1 tablet Orally Once a day Albuterol Sulfate HFA Cyclobenzaprine HCl 5 MG 1 tablet at bed time as needed Orally Once a day Desvenlafaxine Succinate ER 100 MG 1 tablet Orally Once a day for 90 Days Meloxicam 15 MG 1 tablet Orally Once a day for 90 Days Treatment Notes Assessment Notes Other obesity due to excess calories Dis cussed healthy eating habits. Patient seeing weight management PA and has therapist to discuss binge eating Other This chart has been transcribed by a computerized dictation system. There are likely to be multiple healthcare project manager inaccuracies despite chart review. 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 Provider Name:Hong burkett, 11/21/2025 07:15:00 AM, [address] [place] [address], [phone], Provider Name:Hong burkett, 12/16/2025 07:15:00 AM, [address] [place] [address], [phone], Provider Name:Hong burkett, 12/20/2025 07:15:00 AM, [address] [place] [address], [phone], Progress Notes * Examination Category Sub-Category Detail Notes Category Not es General Examination GENERAL APPEARANCE: in no ac [place] distress, well developed, well nourished HEAD: normocephalic, atrau matic EYES: pupils equal, round, reactive to light and accommodation THROAT: clear, no erythema, uvula midline, no exudate NECK/THYROID: neck supple, no thyr omegaly, trachea midline, no carotid bruit HEART: no murmurs, regular rate and rhythm, S1, S2 normal LUNGS: clear to auscultatio n bilaterally ABDOMEN: soft, nontender, non distended, no organomegaly , bowel sounds present NEUROLOGIC: alert and oriented x 3, nonfocal SKIN: Extensive hyperemic rash over bilateral upper extremities EXTREMITIES: no clubbing, cyanosi s, or edema PERIPHERAL PULSES: normal, 2+ throughou t MUSCULOSKELETAL: normal, full range o f motion LYMPH NODES: no cervical, axillar y, supraclavicular or inguinal adenopathy PSYCH: cognitive function i ntact, mood/affect full range ORAL CAVITY: mucosa moist, no les ions, palate normal, tongue in midline, well papillated History and Physical Notes * HPI (History of Present Illness) Category Sub-Category Detail Notes Category Not es Symptom(s) 49-year-old fem dajuan patient with history of anxiety, depression, hypertension, obstructive sleep apnea, bronchial asthma, and GERD , is here for follow-up. Since last visit patient has increase the dose of Pristiq to 100 mg by mouth daily and has noticed significant improvement in her anxiety and depression. Today she tells me that she has become more forgetful. She tells me that she believes she has ADHD. I explained to the patient that we can arrange for evaluation by a neuropsychiatrist which could take some time. I also explained to her that we can give her the question therefore ADHD screening. I explained to the patient that if she is diagnosed with the condition she needs to be at the office every month for prescription. She finally agreed to avoid pursuing the issue for now. I discussed her most recent Pap results with her explaining the findings. She will arrange for repeat Pap smear. Patient's asthma symptoms are well-controlled. She continues uses CPAP machine with good results.
--- OUTSIDE RECORDS SUMMARY | 2025-02-28 05:00 | XMS_ITS ---
Author Organization [facility] Address [address] [place] [address] Care Team Providers Care Auto Technician Name Role Phone Tedmadelaine Hong Primary Care Provider [phone] REASON FOR VISIT (IN OFFICE), Sick Visit [...] Orall y Once a day Active Nystatin-Triamcinolone 231108-4.1 UNIT/GM 1 application Externally Twice a day [...] a nonsmoker Section Notes: Works at a [employer] Blood pressure systolic 120 mm Hg 02/29/20 25 Blood pressure diastolic 74 mm Hg 025 Heart Rate 80 /min 02/28/2025 Height 62 in 02/28/2025 Weight 220 lbs 02/28/2025 BMI 40.23 kg/m2 02/28/2025 Encounters Encounter Location Date Provider Diagnosis [facility], [address] [place] [address] 02/28/2025 Hong Patel Acute URI J06.9 ; [...] system. There are likely to be multiple pump rebuilder inaccuracies despite chart review. PLAN OF TREATMENT [...] system. There are likely to be multiple pump rebuilder inaccuracies despite chart review. Next Appt Details Follow Up: as scheduled, Sofia son: Provider Name:Hong burkett, 11/21/2025 07:15:00 AM, [address] [place] [address], [phone], Provider Name:Hong burkett, 12/16/2025 07:15:00 AM, [address] [place] [address], [phone], Provider Name:Hong burkett, 12/20/2025 07:15:00 AM, [address] [facility] [place], [phone], Progress Notes * Examination Category Sub-Category Detail [...]
--- OUTSIDE RECORDS SUMMARY | 2025-03-10 03:30 | XMS_ITS ---
[facility] Address [address] [place] [address] Care Team Providers Care Wood And Wood Products Labourer Name Role Phone Hong Patel Primary Care Provider [phone] RESULTS Component Value Reference Range Notes IGP, Aptima HPV- Reviewed date:03/15/2025 07:40:54 PM Interpretation: Performing Lab:[facility], [address], [address], [place], Phone - [phone], Director - [facility] Notes/Report: Clinical Information:[id number] No. of containers..01 ThinPrep Vial DIAGNOSIS: NEGATIVE FOR INTRAEPITHELIAL LESION OR MALIGNANCY. THIS SPECIMEN WAS RESCREENED PART OF OUR GREENSKEEPER LABORER PROGRAM. Specimen adequacy: Satisfact ory for evaluation. No endocervical component is identified. Clinician provided ICD10: R8 7.612 Performed by: Rahul trotter, Medical Service Technician (ASCP) QC reviewed by: Alberta Sanon, Medical Service Technician (ASCP) . . Note: The Pap smear [...] FOR 90 DAYS for 90 Active Nystatin-Triamcinolone 142939-8.1 UNIT/GM 1 application Externally Twice a day [...] a nonsmoker Section Notes: Works at a [employer] FT VITAL SIGNS Blood pressure systolic 120 mm Hg 03/10/20 25 Blood pressure diastolic 80 mm Hg 025 Heart Rate 76 /min 03/10/2025 Height 62 in 03/10/2025 Weight 223.8 lbs 03/10/2025 BMI 40.93 kg/m2 03/10/2025 Encounters Encounter Location Date Provider Diagnosis Jorge Fraser, [address] [place] [address] 03/10/2025 Hong Patel LGSIL on Pap smear o f cervix R87.612 ASSESSMENTS Encounter Date Diagnosis Assessment Notes Treatment Notes Treatment Clinical Notes Section Notes 03/10/2025 LGSIL on Pap smear of cervix (ICD-10 - R87.612) 03/10/2025 Other This chart has been transcribed by a computerized dictation system. There are likely to be multiple home appraiser inaccuracies despite chart review. PLAN OF TREATMENT Treatment Notes Assessment Notes Other This chart has been transcribed by a computerized dictation system. There are likely to be multiple home appraiser inaccuracies despite chart review. Next Appt Details Provider Name:Hong burkett, 11/21/2025 07:15:00 AM, [place], [address], Provider Name:Hong burkett, 12/16/2025 07:15:00 AM, [place], [address], Provider Name:Hong burkett, 12/20/2025 07:15:00 AM, [place], [phone], Progress Notes * Examination Category Sub-Category Detail [...]
--- OUTSIDE RECORDS SUMMARY | 2025-04-07 02:15 | XMS_ITS ---
[facility] Address [address] [place] [address] Care Team Providers Care Dental Office Receptionist Name Role Phone TedHong burkett Primary Care [...] BY MIGUELANGEL TH EVERY DAY Active Nystatin-Triamcinolone 585277-9.1 UNIT/GM 1 application Externally Twice a day [...] a nonsmoker Section Notes: Works at a [employer] FT VITAL SIGNS Blood pressure systolic 118 mm Hg 04/07/20 25 Blood pressure diastolic 72 mm Hg 025 Heart Rate 80 /min 04/07/2025 Height 62 in 04/07/2025 Weight 219.4 lbs 04/07/2025 BMI 40.12 kg/m2 04/07/2025 Encounters Encounter Location Date Provider Diagnosis Jorge [facility], [address] [address] 04/07/2025 Hong Patel LGSIL on Pap smear [...] system. There are likely to be multiple insurance underwriter inaccuracies despite chart review. PLAN OF TREATMENT [...] system. There are likely to be multiple insurance underwriter inaccuracies despite chart review. Next Appt Details Follow Up: 3 Months, Reason: Follow-up Provider Name:Hong burkett, 11/21/2025 07:15:00 AM, [address] [place] [address], [phone], Provider Name:Hong burkett, 12/16/2025 07:15:00 AM, [address] [place] [address], [phone], Provider Name:Hong burkett, 12/20/2025 07:15:00 AM, [address] [place] [address], [phone], Progress Notes * Examination Category Sub-Category Detail [...] of breath. Patient tells me that her military science teacher stopped her pantoprazole but she has still been taking it due to persistent GERD symptoms and a burning sensation in her throat. She does not feel that it is as effective anymore. I will start her on Voquezna 10mg daily. I provided her some samples of the medication to try.
--- OUTSIDE RECORDS SUMMARY | 2025-07-05 08:09 | XMS_ITS ---
Author Organization Jorge Fraser Address [address] [facility] [place] [address] Care Team Providers Care Manager Asset Management Name Role Phone Hong Patel Primary Care Provider REASON FOR VISIT Cpap Encounters Encounter Location Date Provider Diagnosis Jorge Fraser [address] [address] 07/05/20 Hong Patel PLAN OF TREATMENT Next Appt Details Provider Name:Hong burkett, 11/21/2025 07:15:00 AM, [address] [place] [address], [phone], Provider Name:Hong burkett, 12/16/2025 07:15:00 AM, [address] [place] [address], [phone], Provider Name:Hong burkett, 12/20/2025 07:15:00 AM, [address] [place] [address], [phone],
--- OUTSIDE RECORDS SUMMARY | 2025-07-08 02:15 | XMS_ITS ---
Author Organization Jorge Fraser Address [address] [place] [address] Care Team Providers Care Vp Communications Name Role Phone TedmadelaineHong Primary Care Provider REASON FOR VISIT (IN OFFICE), Follow Up, Sick visit painful urination MEDICATIONS Medication SIG (Take, Route, Frequency, Duration) Notes Start Date End Date Status Multivitamins Active CPAP Supplies . Use as directed . Daily Active Replacement CPAP Machine with accessories 12cm of H20 Intranasally Daily Active Desvenlafaxine Succinate ER 100 MG 1 tablet Orally Once a day for 90 Days Active Voquezna 10 MG 1 tablet Orally Once a day for 30 day(s) Active Albuterol Sulfate HFA Active Lisinopril 10 MG TAKE 1 TABLET BY MIGUELANGEL TH EVERY DAY Active Desvenlafaxine Succinate ER 100 MG TAKE 1 TABLET BY MOUTH EVERY DAY FOR 90 DAYS for 90 Active Cyclobenzaprine HCl 5 MG 1 tablet at bed time as needed Orally Once a day Not-Taking Meloxicam 15 MG TAKE 1 TABLET BY MIGUELANGEL TH EVERY DAY FOR 90 DAYS for 90 Not-Taking Nystatin-Triamcinolone 804602-2.1 UNIT/GM 1 application Externally Twice a day for 14 days 11/06/2022 Active Fluticasone Propionate 50 MCG/ACT SPRAY 1 SPRAY INTO EACH NOSTRIL EVERY DAY for 30 Active Lisinopril 10 MG TAKE 1 TABLET BY MIGUELANGEL TH EVERY DAY for 90 Active SOCIAL HISTORY Tobacco Use: Social History Observation Description Date Details (start date - stop date) Never Smoker NA - NA Sex Assigned At : Social History Observation Description Sex Assigned At Unknown Tobacco Use/Smoking Question Answer Notes Are you a nonsmoker Section Notes: Works at a [employer] FT [employer]ITAL SIGNS Blood pressure systolic 110 mm Hg 07/08/20 25 Blood pressure diastolic 72 mm Hg 025 Heart Rate 84 /min 07/08/2025 Height 62 in 07/08/2025 Weight 210 lbs 07/08/2025 BMI 38.41 kg/m2 07/08/2025 Encounters Encounter Location Date Provider Diagnosis [email or web address] [address] 07/08/2025 Hong Patel Essential hypertensi on I10 ; ETOH abuse F10.10 ; Primary osteoarthritis involving multiple joints M15.0 ; Current moderate episode of major depressive disorder without prior episode F32.1 ; Mild intermittent asthma without complication J45.20 ; Gastroesophageal reflux disease without esophagitis K21.9 ; Arthralgia of right temporomandibular joint M26.621 ; Atrophic vaginitis N95.2 ; Obstructive sleep apnea G47.33 ; Other obesity due to excess calories E66.09 ; Anxiety F41.9 ; LGSIL on Pap smear of cervix R87.612 and Dysuria R30.0 ASSESSMENTS Encounter Date Diagnosis Assessment Notes Treatment Notes Treatment Clinical Notes Section Notes 07/08/2025 Essential hypertension (ICD-10 - I10) 07/08/2025 ETOH abuse (ICD-10 - F10.10) 07/08/2025 Primary osteoarthritis involving multiple joints (ICD-10 - M15.0) 07/08/2025 Current moderate episode of major depressive disorder without prior episode (ICD-10 - F32.1) 07/08/2025 Mild intermittent asthma without complication (ICD-10 - J45.20) 07/08/2025 Gastroesophageal reflux disease without esophagitis (ICD-10 - K21.9) 07/08/2025 Arthralgia of right temporomandibular joint (ICD-10 - M26.621) 07/08/2025 Atrophic vaginitis (ICD-10 - N95.2) 07/08/2025 Obstructive sleep apnea (ICD-10 - G47.33) 07/08/2025 Other obesity due to excess calories (ICD-10 - E66.09) 07/08/2025 Anxiety (ICD-10 - F41.9) 07/08/2025 LGSIL on Pap smear o f cervix (ICD-10 - R87.612) 07/08/2025 Dysuria (ICD-10 - R30.0) 07/08/2025 Other This chart has been transcribed by a computerized dictation system. There are likely to be multiple administrative associate inaccuracies despite chart review. PLAN OF TREATMENT Medication Medication Name Sig Start Date Stop Date Notes CPAP Supplies . Use as directed . Daily Replacement CPAP Machine wit h accessories 12cm of H20 Intranasally Daily Desvenlafaxine Succinate ER 100 MG 1 tablet Orally Once a day for 90 Days Voquezna 10 MG 1 tablet Orally Once a day for 30 day(s) Albuterol Sulfate HFA Lisinopril 10 MG TAKE 1 TABLET BY MIGUELANGEL TH EVERY DAY Treatment Notes Assessment Notes Other This chart has been transcribed by a computerized dictation system. There are likely to be multiple administrative associate inaccuracies despite chart review. Pending Test Test Name Order Date Urinalysis, Complete-[id number] 07/08/2025 Urine Culture, Routine-[id number] 07/08/2025 Next Appt Details Follow Up: 3 Months, Reason: Follow-up [facility] Dr. Patel Provider Name:Hong burkett, 11/21/2025 07:15:00 AM, [address] [place] [address], [phone], Provider Name:Hong burkett, 12/16/2025 07:15:00 AM, [address] [place] [address], [phone], Provider Name:Hong burkett, 12/20/2025 07:15:00 AM, [address] [place] [address], [phone], Progress Notes * Examination Category Sub-Category Detail Notes Category Not es General Examination GENERAL APPEARANCE: in no ac [place] distress, well developed, well nourished HEAD: normocephalic, [...] GERD , is here for a follow-up. Patient has joined [facility] and lost about 9 pounds since last visit. I encouraged her to continue with diet and exercise. Anxiety and depression is well-controlled on current dose of Pristiq. Our office has been trying to get her a new CPAP machine. Her blood pressure is well-controlled. She denies chest pain, palpitation, or shortness of breath.She also complains of dysuria for the past few days. She denies hematuria or vaginal discharge. She denies fever, chills, or other constitutional symptoms. I ordered urinalysis and culture sensitivity and extending to the patient that if she tests positive for UTI I will call her and start her on appropriate antibiotics. In the meantime I advised her to increase her fluid intake.
--- OUTSIDE RECORDS SUMMARY | 2025-08-08 06:31 | XMS_ITS ---
Author Organization Jorge Fraser Address [address] [place] [address] Care Team Providers Care Dispensing And Measuring Optician Name Role Phone Hong Patel Primary Care Provider REASON FOR VISIT Clinical for coverage Encounters Encounter Location Date Provider Diagnosis Jorge Fraser [address] [place] [address] 08/08/20 Hong Patel PLAN OF TREATMENT Next Appt Details Provider Name:Hong burkett, 11/21/2025 07:15:00 AM, [address] [place] [address], [phone], Provider Name:Hong burkett, 12/16/2025 07:15:00 AM, [address] [place] [address], [phone], Provider Name:Hong burkett, 12/20/2025 07:15:00 AM, [address] [place] [address], [phone],
--- OUTSIDE RECORDS SUMMARY | 2025-10-07 02:30 | XMS_ITS ---
Author Organization [facility] Address [address] [place] [address] Care Team Providers Care Protein Specialist Name Role Phone TedmadelaineHong Primary Care Provider [...] a nonsmoker Section Notes: Works at a [employer] VITAL SIGNS Blood pressure systolic 120 mm Hg 10/07/20 25 Blood pressure diastolic 70 mm Hg 025 Heart Rate 72 /min 10/07/2025 Height 62 in 10/07/2025 Weight 214.6 lbs 10/07/2025 BMI 39.25 kg/m2 10/07/2025 Encounters Encounter Location Date Provider Diagnosis Jorge Fraser [address] [place] [address] 10/07/2025 Hong Patel Essential hypertensi on I10 [...] system. There are likely to be multiple supply coordinator inaccuracies despite chart review. PLAN OF TREATMENT [...] system. There are likely to be multiple supply coordinator inaccuracies despite chart review. Pending Test Test Name Order Date Urinalysis, Complete-[id number] 10/07/2025 Vitamin D, 00-[id number] 10/07/2025 LP+Non-HDL Cholesterol-[id number] 10/07/2025 TSH+Free [id number] 10/07/2025 Comp. Metabolic Panel [id number] 2024 Vitamin B12 and Folate-[id number] 10/07/2025 CBC with Diff, Platelet, [id number] 05/2025 Next Appt Details Follow Up: 12/14/25, 12/18/25 , Reason: Annual physical exam with Dr. 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
--- OUTSIDE RECORDS SUMMARY | 2025-10-10 05:37 | XMS_ITS ---
[facility] Address [address] [place] [address] Care Team Providers Care Medical Grade Shoemaker Name Role Phone JorgeHong Primary Care Provider REASON FOR VISIT start med MEDICATIONS Medication SIG (Take, Route, Fr equency, Duration) Notes Start Date End Date Status Wegovy 0.25 MG/0.5ML 0.25mg Subcutaneous Once a week for 30 days 10/11/2025 Active Encounters Encounter Location Date Provider [facility] [address] [place] [address] 10/10/2025 Hong Patel Obstructive sleep apnea G47.33 [...] Details Provider Name:Hong burkett, 11/21/2025 07:15:00 AM, [address] [place] [address], [phone], Provider Name:Hong burkett, 12/16/2025 07:15:00 AM, [address] [place] [address], [phone], Provider Name:Hong burkett, 12/20/2025 07:15:00 AM, [address] [place] [address], [phone],
--- OUTSIDE RECORDS SUMMARY | 2025-10-10 10:45 | XMS_ITS ---
Author Organization [facility] Address [address] [place] [address] Care Team Providers Care Ancient Art Curator Name Role Phone TedHong burkett Primary Care Provider [phone] ALLERGIES No Known Allergies REASON FOR VISIT [...] Interpretation Negative Section Notes: Works at a [employer] FT Encounters Encounter Location Date Provider Diagnosis Jogre Fraser, [address] [place] [address] 10/10/2025 Hong Patel Current moderate epi sode [...] system. There are likely to be multiple site interpreter inaccuracies despite chart review. PLAN OF TREATMENT [...] system. There are likely to be multiple site interpreter inaccuracies despite chart review. Next Appt Details Follow Up: 4 Weeks, Reason: Follow-up [facility] Dr. Patel Provider Name:Hong burkett, 11/21/2025 07:15:00 AM, [address] [place] [address], [phone], Provider Name:Hong burkett, 12/16/2025 07:15:00 AM, [address] [place] [address], [phone], Provider Name:Hong burkett, 12/20/2025 07:15:00 AM, [address] [place] [address], [phone], History and Physical Notes * HPI (History [...]
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
[2025-10-13 09:27] VITALS: BP 119/60; PULSE 66; TEMP 36.3; O2SAT 97; BMI 38.1
--- OUTSIDE RECORDS SUMMARY | 2025-10-13 10:11 | XMS_ITS | Clinical Summary ---
Author Organization [facility] Address [address] [place] [address] Care Team Providers Care Health Information Managers Name Role Phone Hong Patel MD Primary Care Provider [phone] Allergies No known active allergies Medications Medication [...] age to complete this topic Care Teams Health Information Managers Relationship Specialty Start Date End Date Hong Patel MD [address] [place] [address] [address] [place] [address] PCP - General Internal Medicine 03/02/21
--- OUTSIDE RECORDS SUMMARY | 2025-10-13 10:11 | XMS_ITS | Clinical Summary ---
Author Organization [facility] Address [address] [place] [address] Care Team Providers Care Salesforce Consultant Name Role Phone Unavailable Primary Care Provider [...] Drug Screen 12/01/2024 Depression Annual Screen 12/01/2024 [id number]-[id number]-75 ( season) 2025 021, 03/26/2021 Imm-Influenza (#1) 2025 10/05/2020, 1 , 09/23/2018, Additional history exists Imm-Pneumococcal 50+ (1 of 1 - PCV) 2025 Imm-Zoster, Recombinant (1 of 2) 2025 Cervical Ablation/Cold-Knife Conization Discontinued Cervical Cryotherapy Discontinued Colposcopy Discontinued Excision/Leep Discontinued HPV Genotyping Discontinued Vaginal Pap Discontinued Vulvoscopy Discontinued
--- OUTSIDE RECORDS SUMMARY | 2025-10-13 10:12 | XMS_ITS | Patient Health Record ---
Author Organization [facility] Address [address] [place] [address] Care Team Providers Care Corrosion Technician Name Role Phone Hong Patel MD Primary Care Provider Unavaila Marcos Rojas Unavailable [phone] Reason For Referral No Information Medications Medication [...] Status Risk Notes Problem Plantar fascial fibromatosis ([id number]) Plantar fascial fibromatosis (M72.2) Active confirmed Plan Of Treatment No Information Insurance Providers Payer Name Payer Address Payer Phone Subscriber Number Group Number Insured Name Patient Relationship to Insured Coverage Start Date Coverage End Date [employer] ([facility] [address] [place] [address] [id number] Tone, Nora Self - patient is the insured Medical (General) History Medical History History ICD Code Anxiety Arthritis asthma Back,Hip,and Knee pain Depression Headaches/Migraines High blood pressure Lyme disease Sinus conditions Warts Chicken pox Surgical History Surgery Date(Month/Year) Laphole Adhesion Rem C- section 05/10/1998 02/06/00 D+C 1996 Uterine ablation
--- OUTSIDE RECORDS SUMMARY | 2025-10-13 10:12 | XMS_ITS | Patient Health Record ---
[facility] Address [address] [place] [address] Care Team Providers Care Emergency Department Aide Name Role Phone Hong Patel Primary Care Provider ALLERGIES No Known Allergies RESULTS Component Value Reference Range Notes IGP, Aptima HPV- Reviewed date:03/15/2025 07:40:54 PM Interpretation: Performing Lab:[facility], [address] [place] [address], Phone - [phone], Director - [facility] Notes/Report: Clinical Information:[id number] No. of containers..01 ThinPrep Vial DIAGNOSIS: EPITHELIAL CELL ABNORMALITY. LOW GRADE SQUAMOUS INTRAEPITHELIAL LESION (LSIL). Specimen adequacy: Satisfact ory for evaluation. No endocervical component is identified. Clinician provided ICD10: Z1 2.4 Performed by: Rahul trotter, Program Review Director (ASCP) Electronically signed by: Juan Pablo Leyva [...] Alvaro Arreola, [address], [place], Phone - [phone], Director - [facility] Notes/Report: Clinical Information:[id number] No. of containers..01 ThinPrep Vial DIAGNOSIS: NEGATIVE FOR INTRAEPITHELIAL LESION OR MALIGNANCY. THIS SPECIMEN WAS RESCREENED PART OF OUR ACCOUNT RETENTION REPRESENTATIVE PROGRAM. Specimen adequacy: Satisfact ory for evaluation. No endocervical component is identified. Clinician provided ICD10: R8 7.612 Performed by: Rahul trotter, Program Review Director (ASCP) QC reviewed by: Alberta Sanon, Program Review Director (ASC) . . Note: The Pap smear [...] HPV types (16,18,31,33,35,39,45,51,52, 56,58,59,66,68) without differentiation. Urinalysis, Complete-[id number] Reviewed date:12/18/2024 02:02:59 PM Interpretation: Performing Lab:[facility], [address] [facility], Phone - [phone], [facility] Notes/Report: Specific [place] 1.027 1.005-1.030 pH 6.0 5.0-7.5 Urine-Color Yellow [...] seen/Few Yeast Trichomonas Comment CBC With Differential/Platel et-[id number] Reviewed date:12/18/2024 02:02:59 PM Interpretation: Performing Lab:[facility], [address] [place] [address], Phone - [phone], Director - Lucas Notes/Report: WBC 11.9 3.4-10.8 [...] Verifie d by microscopic examination. Vitamin D, 65-Heqesrj-858045 Reviewed date:12/18/2024 02:02:59 PM Interpretation: Performing Lab:[facility], [address] [place] [address], [place], Phone - [phone], Director - Lucas Notes/Report: Vitamin D, 25-Hydroxy 39.1 30.0-100.0 ng/mL Vitamin D deficiency has been defined by the [place] [employer] and an Endocrine Society practice guideline as a level of serum 25-OH vitamin D less than 20 ng/mL (1,2). The Endocrine Society went on to further define vitamin D insufficiency as a level between 21 and 29 ng/mL (2). 1. IOM ([place] [employer]). 2010. Dietary reference intakes for calcium and D. [place]: The National Academies Press. 2. Gus MF, Sloane GUERRA, Riley LEMUS, et al. Evaluation, treatment, and prevention of vitamin D deficiency: an Endocrine Society clinical practice guideline. JCEM. 2010; 96(7):1911-30. LP+Non-HDL Cholesterol-17798 5 Reviewed date:12/18/2024 02:02:59 PM Interpretation: Performing Lab:[facility], [facility], Phone - [phone], Director - MDJodry Notes/Report: Cholesterol, Total 159 100-199 mg/dL Triglycerides 85 0-149 mg/dL HDL Cholesterol 43 >39 mg/dL VLDL Cholesterol Juancho 16 5-40 mg/dL LDL Chol Calc ([facility]) 100 0-99 mg/dL LDL Calc Comment: Non-HDL Cholesterol 116 0-129 mg/dL TSH+Free [id number] Reviewed date:12/18/2024 02:02:59 PM Interpretation: Performing Lab:[facility], [facility], Phone - [phone], Director - MDJodry Notes/Report: TSH 1.220 0.450-4.500 uIU/mL T4,Free(Direct) 0.97 0.82-1.77 ng/dL Comp. 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 Works at a [employer] FT PROBLEMS Problem Type ICD Code Onset Dates Problem Status W/U Status Risk SNOMED Code Notes Problem Depression (F32.9) Active confirmed 354 85409 Problem Atrophic vaginitis (N95.2) Active confirmed 29377483 Problem Anxiety (F41.9) Active confirmed 265919 02 Problem Plantar fasciitis (M72.2) Active confirmed 907846244 Problem PTSD (post-traumatic stress disorder) (F43.10) Active confirmed 46894171 Problem ETOH abuse (F10.10) Active confirmed 15 596719 Problem Other obesity due to excess calories (E66.09) Active confirmed 869964650 Problem Cutaneous candidiasis (B37.2) Active confirmed 00697129 Problem Obstructive sleep apnea (G47.33) Active confirmed 16816291 Problem Essential hypertension (I10) Active confirmed 12479777 Problem Gastroesophageal reflux disease without esophagitis (K21.9) Active confirmed Gastroesophagea l reflux disease without esophagitis (820708735) Problem Primary osteoarthritis involving multiple joints (M15.0) Active confirmed 574705314 Problem Mild intermittent asthma without complication (J45.20) Active confirmed Mild intermitte nt asthma (240336438) Problem Chest pain, unspecified chest pain type (R07.9) Active confirmed 49386026 Problem Arthralgia of right temporomandibular joint (M26.621) Active confirmed 84982480 Problem Current moderate episode of major depressive disorder without prior episode (F32.1) Active confirmed 77564007 Problem Adrenal nodule (E27.8) Active confirmed 471469328 Problem Solitary thyroid nodule (E04.1) Active confirmed 046146634 VITAL SIGNS Heart Rate 72 /min 10/07/2025 Blood pressure diastolic 70 mm Hg 10/07/2025 Height 62 in 10/07/2025 Blood pressure systolic 120 mm Hg 10/07/2025 Weight 214.6 lbs 10/07/2025 BMI 39.25 kg/m2 10/07/2025 Encounters Encounter Location Date Provider Diagnosis [address] [address] 11/25/2024 Hong Patel [address] [address] 11/25/2024 Hong Patel [address] [address] 11/25/2024 Hong Patel COVID-[address] [address] 12/13/2024 Hong Patel Annual physical exam Z00.00 ; Current moderate episode of major depressive disorder without prior episode F32.1 and Acute URI J06.[address] [address] 12/17/2024 Hong Patel Encounter for screen ing for malignant neoplasm of cervix Z12.4 and Encounter for screening mammogram for malignant neoplasm of breast Z12.[address] [address] 12/17/2024 Hong Patel Laboratory examinati on ordered as part of a complete physical examination Z00.[address] [address] 01/04/2025 Hong Patel [address] [address] 01/13/2025 Hong Patel LGSIL on Pap smear [...] to excess calories E66.09 and Anxiety F41.[address] [address] 02/28/2025 Hong Patel Acute URI J06.9 ; Ch est congestion R09.89 ; Vaginal yeast infection B37.31 and Respiratory infection J98.[address] [address] 03/10/2025 Hong Patel LGSIL on Pap smear o f cervix R87.[address] [address] 04/07/2025 Hong Patel LGSIL on Pap smear [...] to excess calories E66.09 and Anxiety F41.[address] [address] 07/05/[address] [address] 07/08/2025 Hong Patel Essential hypertensi on I10 [...] smear of cervix R87.612 and Dysuria R30.[address] [address] 08/08/2025 [facility] [address] [address] 10/07/2025 Hong Patel Essential hypertensi on I10 [...] of a complete physical exam (CPE) Z00.[address] [address] 10/10/2025 Hong Patel Obstructive sleep ap michael G47.[address] [address] 10/10/2025 Hong Patel Current moderate epi sode [...] Notes Treatment Clinical Notes Section Notes 12/17/2024 Encounter for screening for malignant neoplasm of cervix (ICD-10 - Z12.4) 01/13/2025 LGSIL on Pap smear o f cervix (ICD-10 - R87.612) 12/17/2024 Encounter for screening mammogram for malignant neoplasm of breast (ICD-10 - Z12.31) 03/10/2025 LGSIL on Pap smear o f cervix (ICD-10 - R87.612) 10/10/2025 Obstructive sleep apnea (ICD-10 - G47.33) 10/10/2025 Obstructive sleep apnea (ICD-10 - G47.33) 12/13/2024 Annual physical exam (ICD-10 - Z00.00) 12/13/2024 Current moderate episode of major depressive disorder without prior episode (ICD-10 - F32.1) 04/07/2025 LGSIL on Pap smear o f cervix (ICD-10 - R87.612) 07/08/2025 Essential hypertension (ICD-10 - I10) 02/28/2025 Chest congestion (ICD-10 - R09.89) 02/28/2025 Acute URI (ICD-10 - J06.9) 10/07/2025 Essential hypertension (ICD-10 - I10) 11/25/2024 COVID-19 (ICD-10 - U07.1) 10/10/2025 Current moderate episode of major depressive disorder without prior episode (ICD-10 - F32.1) 01/13/2025 Essential hypertension (ICD-10 - I10) 10/07/2025 ETOH abuse (ICD-10 - F10.10) 12/17/2024 Laboratory examination ordered as part of a complete physical examination (ICD-10 - Z00.00) 04/07/2025 Essential hypertension (ICD-10 - I10) 07/08/2025 ETOH abuse (ICD-10 - F10.10) 02/28/2025 Vaginal yeast infection (ICD-10 - B37.31) 10/10/2025 Essential hypertension (ICD-10 - I10) 12/13/2024 Acute URI (ICD-10 - J06.9) 07/08/2025 Primary osteoarthritis involving multiple joints (ICD-10 - M15.0) 10/10/2025 ETOH abuse (ICD-10 - F10.10) 10/07/2025 Primary osteoarthritis involving multiple joints (ICD-10 - M15.0) 01/13/2025 ETOH abuse (ICD-10 - F10.10) 01/13/2025 Current moderate episode of major depressive disorder without prior episode (ICD-10 - F32.1) 04/07/2025 ETOH abuse (ICD-10 - F10.10) 02/28/2025 Respiratory infectio n (ICD-10 - J98.8) 10/10/2025 Primary osteoarthritis involving multiple joints (ICD-10 - M15.0) 10/07/2025 Current moderate episode of major depressive disorder without prior episode (ICD-10 - F32.1) 10/07/2025 Mild intermittent asthma without complication (ICD-10 - J45.20) 07/08/2025 Current moderate episode of major depressive disorder without prior episode (ICD-10 - F32.1) 01/13/2025 Primary osteoarthritis involving multiple joints (ICD-10 - M15.0) 07/08/2025 Mild intermittent asthma without complication (ICD-10 - J45.20) 04/07/2025 Primary osteoarthritis involving multiple joints (ICD-10 - M15.0) 04/07/2025 Current moderate episode of major depressive disorder without prior episode (ICD-10 - F32.1) 10/10/2025 Mild intermittent asthma without complication (ICD-10 - J45.20) 10/07/2025 Gastroesophageal reflux disease without esophagitis (ICD-10 - K21.9) 01/13/2025 Mild intermittent asthma without complication (ICD-10 - J45.20) 07/08/2025 Gastroesophageal reflux disease without esophagitis (ICD-10 - K21.9) 04/07/2025 Mild intermittent asthma without complication (ICD-10 - J45.20) 01/13/2025 Gastroesophageal reflux disease without esophagitis (ICD-10 - K21.9) 04/07/2025 Gastroesophageal reflux disease without esophagitis (ICD-10 - K21.9) 07/08/2025 Arthralgia of right temporomandibular joint (ICD-10 - M26.621) 10/07/2025 Arthralgia of right temporomandibular joint (ICD-10 - M26.621) 10/10/2025 Gastroesophageal reflux disease without esophagitis (ICD-10 - K21.9) 10/10/2025 Arthralgia of right temporomandibular joint (ICD-10 - M26.621) 10/07/2025 Atrophic vaginitis (ICD-10 - N95.2) 07/08/2025 Atrophic vaginitis (ICD-10 - N95.2) 04/07/2025 Arthralgia of right temporomandibular joint (ICD-10 - M26.621) 01/13/2025 Arthralgia of right temporomandibular joint (ICD-10 - M26.621) 10/10/2025 Atrophic vaginitis (ICD-10 - N95.2) 10/07/2025 Obstructive sleep apnea (ICD-10 - G47.33) 07/08/2025 Obstructive sleep apnea (ICD-10 - G47.33) 01/13/2025 Atrophic vaginitis (ICD-10 - N95.2) 04/07/2025 Atrophic vaginitis (ICD-10 - N95.2) 10/10/2025 Other obesity due to excess calories (ICD-10 - E66.09) 01/13/2025 Obstructive sleep apnea (ICD-10 - G47.33) 10/07/2025 Other obesity due to excess calories (ICD-10 - E66.09) 04/07/2025 Obstructive sleep apnea (ICD-10 - G47.33) 07/08/2025 Other obesity due to excess calories (ICD-10 - E66.09) 10/07/2025 Anxiety (ICD-10 - F41.9) 04/07/2025 Other obesity due to excess calories (ICD-10 - E66.09) 01/13/2025 Other obesity due to excess calories (ICD-10 - E66.09) Discussed healthy eating habits. Patient seeing weight management PA and has therapist to discuss binge eating 10/10/2025 Anxiety (ICD-10 - F41.9) 07/08/2025 Anxiety (ICD-10 - F41.9) 10/07/2025 Laboratory tests ordered as part of a complete physical exam (CPE) (ICD-10 - Z00.00) 07/08/2025 LGSIL on Pap smear o f cervix (ICD-10 - R87.612) 04/07/2025 Anxiety (ICD-10 - F41.9) 01/13/2025 Anxiety (ICD-10 - F41.9) 07/08/2025 Dysuria (ICD-10 - R30.0) 12/13/2024 Other This chart has been transcribed by a computerized dictation system. There are likely to be multiple hr business partner inaccuracies despite chart review. 01/13/2025 Other This chart has been transcribed by a computerized dictation system. There are likely to be multiple hr business partner inaccuracies despite chart review. 04/07/2025 Other This chart has been transcribed by a computerized dictation system. There are likely to be multiple hr business partner inaccuracies despite chart review. 07/08/2025 Other This chart has been transcribed by a computerized dictation system. There are likely to be multiple hr business partner inaccuracies despite chart review. 10/07/2025 Other This chart has been transcribed by a computerized dictation system. There are likely to be multiple hr business partner inaccuracies despite chart review. 12/17/2024 Other This chart has been transcribed by a computerized dictation system. There are likely to be multiple hr business partner inaccuracies despite chart review. 03/10/2025 Other This chart has been transcribed by a computerized dictation system. There are likely to be multiple hr business partner inaccuracies despite chart review. 02/28/2025 Other This chart has been transcribed by a computerized dictation system. There are likely to be multiple hr business partner inaccuracies despite chart review. 11/25/2024 Other This chart has been transcribed by a computerized dictation system. There are likely to be multiple hr business partner inaccuracies despite chart review. 10/10/2025 Other This chart has been transcribed by a computerized dictation system. There are likely to be multiple hr business partner inaccuracies despite chart review. PLAN OF TREATMENT Pending Test Test Name Order Date MRI : Knee, right 12/14/2014 X ray : Knee, right 09/15/2014 X ray : Hand, left 07/18/2016 X ray : Wrist, left 07/18/2016 EMG/NCV ARMS 08/20/2016 HPV, high+low-risk 12/09/2022 HPV, high+low-risk 09/28/2018 HPV, high+low-risk 11/28/2021 HPV, high+low-risk 11/22/2020 HPV, high+low-risk 09/29/2019 MAMMOGRAM, SCREENING 09/29/2019 MAMMOGRAM, SCREENING 11/28/2021 MAMMOGRAM, SCREENING 06/26/2016 MAMMOGRAM, SCREENING 12/09/2022 MAMMOGRAM, SCREENING 03/25/2013 MAMMOGRAM, SCREENING 09/24/2017 MAMMOGRAM, SCREENING 12/17/2024 MAMMOGRAM, SCREENING 09/28/2018 MAMMOGRAM, SCREENING 12/16/2023 Ultrasound : Doppler : Veins Leg Right 0 04/21/2015 Ultrasound : Pelvic Non/OB 07/26/2021 Ultrasound : Thyroid Sonography B-Scan 0 07/26/2021 Ultrasound : Transvaginal 07/26/2021 GUAIAC, SINGLE SPECIMEN 06/26/2016 GUAIAC, SINGLE SPECIMEN 11/28/2021 GUAIAC, SINGLE SPECIMEN 11/22/2020 GUAIAC, SINGLE SPECIMEN 12/17/2024 GUAIAC, SINGLE SPECIMEN 12/16/2023 GUAIAC, SINGLE SPECIMEN 09/24/2017 GUAIAC, SINGLE SPECIMEN 12/09/2022 GUAIAC, SINGLE SPECIMEN 09/28/2018 GUAIAC, SINGLE SPECIMEN 09/29/2019 *EKG 12/08/2012 *EKG 11/12/2012 *EKG 12/06/2015 *SPIROMETRY 11/12/2012 Thin Prep 03/25/2013 Thin Prep 02/24/2014 Thin Prep 02/27/2015 CPAP Titration Study 02/17/2013 EMG 07/31/2015 Drain/Inject Joint/Bursa (MEDIUM) 2018 HEMOGLOBIN A1C 08/12/2017 HEMOGLOBIN A1C 06/24/2016 HEMOGLOBIN A1C 01/12/2015 COMPREHENSIVE METABOLIC PANL 01/12/2015 COMPREHENSIVE METABOLIC PANL 07/10/2020 COMPREHENSIVE METABOLIC PANL 07/26/2021 COMPREHENSIVE METABOLIC PANL 05/03/2016 COMPREHENSIVE METABOLIC PANL 08/12/2017 LIPID PANEL 05/03/2016 LIPID PANEL 08/12/2017 LIPID PANEL 07/26/2021 LIPID PANEL 07/10/2020 LIPID PANEL 01/12/2015 THYROID PANEL 01/12/2015 THYROID PANEL 07/10/2020 THYROID PANEL 07/26/2021 THYROID PANEL 08/12/2017 THYROID PANEL 05/03/2016 FSH 07/26/2021 FSH 07/10/2020 LH 07/10/2020 LH 07/26/2021 URINARY MICROALBUMIN 01/12/2015 25OH VITAMIN D 01/12/2015 25OH VITAMIN D 07/10/2020 25OH VITAMIN D 07/26/2021 25OH VITAMIN D 05/03/2016 25OH VITAMIN D 08/12/2017 COMPLETE CBC WITH DIFF 08/12/2017 COMPLETE CBC WITH DIFF 05/03/2016 COMPLETE CBC WITH DIFF 07/26/2021 COMPLETE CBC WITH DIFF 07/10/2020 COMPLETE CBC WITH DIFF 01/12/2015 URINE DIPSTICK 01/12/2015 COMPLETE URINALYSIS 07/10/2020 COMPLETE URINALYSIS 07/26/2021 COMPLETE URINALYSIS 08/12/2017 COMPLETE URINALYSIS 05/03/2016 CYTOPATHOLOGY (RN TELEPHONIC) 11/28/2021 CYTOPATHOLOGY (RN TELEPHONIC) 12/16/2023 CYTOPATHOLOGY (RN TELEPHONIC) 12/09/2022 CT Head/Brain W/O Contrast 02/05/2022 25OH VITAMIN D 11/06/2022 CBC (COMPLETE BLOOD COUNT) WITH DIFF 05/2022 CHLAMYDIA GC AMP PROBE, URINE 04/17/2022 COMPREHENSIVE METABOLIC PANEL 11/06/2022 HPV, HIGH RISK 12/16/2023 LIPID PANEL 11/06/2022 MICROALBUMIN, URINE 11/06/2022 THYROID PANEL (TSH, FT4) 11/06/2022 URINALYSIS, COMPLETE 11/06/2022 Urinalysis, Complete-[id number] 07/08/2025 Urinalysis, Complete-298921 10/07/2025 Urine Culture, Routine-[id number] 07/08/2025 Vitamin D, 11-Fgsblnh-475704 10/07/2025 LP+Non-HDL Cholesterol-759768 10/07/2025 TSH+Free T4-759570 10/07/2025 Comp. Metabolic Panel [phone] 2024 Vitamin B12 and Folate-090760 10/07/2025 CBC with Diff, Platelet, NLR-[id number] 05/2025 Next Appt Details Provider Name:Hong burkett, 11/21/2025 07:15:00 AM, [address] [place] [address], [phone], Provider Name:Hong burkett, 12/16/2025 07:15:00 AM, [address] [place] [address], [phone], Provider Name:Hong Lemuski m, 12/20/2025 07:15:00 AM, [address] [place], [phone], Insurance Providers Payer Name Payer Address Payer Phone Subscriber Number Group Number Insured Name Patient Relationship to Insured Coverage Start Date Coverage End Date ORLANDO HASKINS([facility]) [address] [place] [address] [phone] [id number] Nora Wayne Self - patient is the [...]
== END 2025-10-13 10:13 | disposition home or self-care (01) ==
LOC: HO.HBS 09:11
PROVIDERS: PCP Internal Medicine; Visit Provider Physician Assistant Surgical
DX: E66.9 Obesity, unspecified (principal); Z98.84 Bariatric surgery status; K21.9 Gastro-esophageal reflux disease without esophagitis; Z98.890 Other specified postprocedural states; Z87.19 Personal history of other diseases of the digestive system
CPT/HCPCS: 99214

== ENCOUNTER 2025-10-17 07:13 | Outpatient (REF) | payer OTHER, SELFPAY ==
--- OUTSIDE RECORDS SUMMARY | 2025-02-28 05:00 | XMS_ITS ---
Author Organization [facility] Address [address] [place] [address] Care Team Providers Care Surg Rn Name Role Phone Tedmadelaine Hong Primary Care Provider [phone] REASON FOR VISIT (IN OFFICE), Sick Visit [...] Orall y Once a day Active Nystatin-Triamcinolone 169753-7.1 UNIT/GM 1 application Externally Twice a day [...] a nonsmoker Section Notes: Works at a [employer] Blood pressure systolic 120 mm Hg 02/29/20 25 Blood pressure diastolic 74 mm Hg 025 Heart Rate 80 /min 02/28/2025 Height 62 in 02/28/2025 Weight 220 lbs 02/28/2025 BMI 40.23 kg/m2 02/28/2025 Encounters Encounter Location Date Provider Diagnosis [facility], [address] [place] [address] 02/28/2025 Hong Patel Acute URI J06.9 ; [...] system. There are likely to be multiple knitting machine operator automatic inaccuracies despite chart review. PLAN OF TREATMENT [...] system. There are likely to be multiple knitting machine operator automatic inaccuracies despite chart review. Next Appt Details Follow Up: as scheduled, Sofia son: Provider Name:Hong burkett, 11/21/2025 07:15:00 AM, [address] [place] [address], [phone], Provider Name:Hong burkett, 12/16/2025 07:15:00 AM, [address] [place] [address], [phone], Provider Name:Hong burkett, 12/20/2025 07:15:00 AM, [address] [place], [phone], Progress Notes * Examination Category Sub-Category Detail [...]
--- OUTSIDE RECORDS SUMMARY | 2025-03-10 03:30 | XMS_ITS ---
[facility] Address [address] [place] [address] Care Team Providers Care Service Rig Operator Name Role Phone Hong Patel Primary Care Provider [phone] RESULTS Component Value Reference Range Notes IGP, Aptima HPV- Reviewed date:03/15/2025 07:40:54 PM Interpretation: Performing Lab:[facility], [address], [address], [place], Phone - [phone], Director - [facility] Notes/Report: Clinical Information:[id number] No. of containers..01 ThinPrep Vial DIAGNOSIS: NEGATIVE FOR INTRAEPITHELIAL LESION OR MALIGNANCY. THIS SPECIMEN WAS RESCREENED PART OF OUR STRAIGHT TOOTH GEAR GENERATOR OPERATOR PROGRAM. Specimen adequacy: Satisfact ory for evaluation. No endocervical component is identified. Clinician provided ICD10: R8 7.612 Performed by: Rahul trotter, Band Top Maker (ASCP) QC reviewed by: Alberta Sanon, Band Top Maker (ASCP) . . Note: The Pap smear is a screening test designed to aid in the detection of premalignant and malignant conditions of the uterine cervix. It is not a diagnostic procedure and should not be used as the sole means of detecting cervical cancer. Both false-positive and false-negative reports do occur. . Test Methodology: This liquid based ThinPrep(R) pap test was screened with the use of an image guided system. HPV Aptima Positive Negative This nucleic acid amplification test detects fourteen high-risk HPV types (16,18,31,33,35,39,45,51,52,56,58 ,59,66,68) without differentiation. REASON FOR VISIT (IN OFFICE), Abnormal Pap MEDICATIONS Medication SIG (Take, Route, Frequency, Duration) Notes Start Date End Date Status Desvenlafaxine Succinate ER 100 MG 1 tablet Orally Once a day for 90 Days Active Cyclobenzaprine HCl 5 MG 1 tablet at bed time as needed Orally Once a day Active Pantoprazole Sodium 40 MG 1 tablet Orall y Once a day Active CPAP Supplies . Use as directed . Daily Active Replacement CPAP Machine with accessories 12cm of H20 Intranasally Daily Active Lisinopril 10 MG TAKE 1 TABLET BY MIGUELANGEL TH EVERY DAY for 90 Active Albuterol Sulfate HFA Active Meloxicam 15 MG TAKE 1 TABLET BY MIGUELANGEL TH EVERY DAY FOR 90 DAYS for 90 Active Nystatin-Triamcinolone 840629-4.1 UNIT/GM 1 application Externally Twice a day for 14 days 11/06/2022 Active Fluticasone Propionate 50 MCG/ACT SPRAY 1 SPRAY INTO EACH NOSTRIL EVERY DAY for 30 Active Multivitamins Active SOCIAL HISTORY Tobacco Use: Social History Observation Description Date Details (start date - stop date) Never Smoker NA - NA Sex Assigned At : Social History Observation Description Sex Assigned At Unknown Tobacco Use/Smoking Question Answer Notes Are you a nonsmoker Section Notes: Works at a [employer] FT VITAL SIGNS Blood pressure systolic 120 mm Hg 03/10/20 25 Blood pressure diastolic 80 mm Hg 025 Heart Rate 76 /min 03/10/2025 Height 62 in 03/10/2025 Weight 223.8 lbs 03/10/2025 BMI 40.93 kg/m2 03/10/2025 Encounters Encounter Location Date Provider Diagnosis Jorge [facility], [address] [place] [address] 03/10/2025 Hong Patel LGSIL on Pap smear o f cervix R87.612 ASSESSMENTS Encounter Date Diagnosis Assessment Notes Treatment Notes Treatment Clinical Notes Section Notes 03/10/2025 LGSIL on Pap smear of cervix (ICD-10 - R87.612) 03/10/2025 Other This chart has been transcribed by a computerized dictation system. There are likely to be multiple packaging sales inaccuracies despite chart review. PLAN OF TREATMENT Treatment Notes Assessment Notes Other This chart has been transcribed by a computerized dictation system. There are likely to be multiple packaging sales inaccuracies despite chart review. Next Appt Details Provider Name:Hong burkett, 11/21/2025 07:15:00 AM, [facility] [place], [address], Provider Name:Hong burkett, 12/16/2025 07:15:00 AM, [address], [address], Provider Name:Hong burkett, 12/20/2025 07:15:00 AM, [place], [address], Progress Notes * Examination Category Sub-Category Detail Notes Category Not es General Examination GENERAL APPEARANCE: in no ac isaac distress, well developed, well nourished HEART: no murmurs, regular rate and rhythm, S1, S2 normal LUNGS: clear to auscultatio n bilaterally NEUROLOGIC: alert and oriented x 3, nonfocal SKIN: no suspicious lesion s, warm and dry EXTREMITIES: no clubbing, cyanosi s, or edema BREASTS: RECTAL EXAM: PSYCH: cognitive function i ntact, mood/affect full range FEMALE GENITOURINARY: Valvovagina normal , ut, ovaries normal, normal urethral opening, no urogenital descent History and Physical Notes * HPI (History of Present Illness) Category Sub-Category Detail Notes Category Not es Symptom(s) 49-year-old fem dajuan patient with history of anxiety, depression, hypertension, obstructive sleep apnea, bronchial asthma, and GERD , is here for repeat Pap smear. Her previous Pap smear was significant for LSIL. Patient is asymptomatic. I performed chaperoned pelvic exam and symptoms repeat Pap smear for her during the visit. Her chronic conditions are well controlled on current medications.
--- OUTSIDE RECORDS SUMMARY | 2025-04-07 02:15 | XMS_ITS ---
Author Organization [facility] Address [address] [place] [address] Care Team Providers Care Customer Service Technician Name Role Phone TedHong burkett Primary Care Provider [phone] ALLERGIES No Known Allergies REASON FOR VISIT (IN OFFICE), Follow Up, Sick visit- GERD management MEDICATIONS Medication SIG (Take, Route, Frequency, Duration) Notes Start Date End Date Status CPAP Supplies . Use as directed . Daily Active Desvenlafaxine Succinate ER 100 MG 1 tablet Orally Once a day for 90 Days Active Meloxicam 15 MG TAKE 1 TABLET BY MIGUELANGEL TH EVERY DAY FOR 90 DAYS for 90 Not-Taking Replacement CPAP Machine with accessories 12cm of H20 Intranasally Daily Active Cyclobenzaprine HCl 5 MG 1 tablet at bed time as needed Orally Once a day Not-Taking Fluticasone Propionate 50 MCG/ACT SPRAY 1 SPRAY INTO EACH NOSTRIL EVERY DAY for 30 Active Lisinopril 10 MG TAKE 1 TABLET BY MIGUELANGEL TH EVERY DAY for 90 Active Lisinopril 10 MG TAKE 1 TABLET BY MIGUELANGEL TH EVERY DAY Active Nystatin-Triamcinolone 064153-6.1 UNIT/GM 1 application Externally Twice a day for 14 days 11/06/2022 Active Albuterol Sulfate HFA Active Multivitamins Active Voquezna 10 MG 1 tablet Orally Once a day for 30 day(s) 04/07/2025 Active SOCIAL HISTORY Tobacco Use: Social History Observation Description Date Details (start date - stop date) Never Smoker NA - NA Sex Assigned At : Social History Observation Description Sex Assigned At Unknown Tobacco Use/Smoking Question Answer Notes Are you a nonsmoker Section Notes: Works at a [employer] FT VITAL SIGNS Blood pressure systolic 118 mm Hg 04/07/20 25 Blood pressure diastolic 72 mm Hg 025 Heart Rate 80 /min 04/07/2025 Height 62 in 04/07/2025 Weight 219.4 lbs 04/07/2025 BMI 40.12 kg/m2 04/07/2025 Encounters Encounter Location Date Provider Diagnosis Jorge [facility], [address] [address] 04/07/2025 Hong Patel LGSIL on Pap smear o [...] Treatment Notes Treatment Clinical Notes Section Notes 04/07/2025 LGSIL on Pap smear o f cervix (ICD-10 - R87.612) 04/07/2025 Essential hypertension (ICD-10 - I10) 04/07/2025 ETOH abuse (ICD-10 - F10.10) 04/07/2025 Current moderate episode of major depressive disorder without prior episode (ICD-10 - F32.1) 04/07/2025 Primary osteoarthritis involving multiple joints (ICD-10 - M15.0) 04/07/2025 Mild intermittent asthma without complication (ICD-10 - J45.20) 04/07/2025 Gastroesophageal reflux disease without esophagitis (ICD-10 - K21.9) 04/07/2025 Arthralgia of right temporomandibular joint (ICD-10 - M26.621) 04/07/2025 Atrophic vaginitis (ICD-10 - N95.2) 04/07/2025 Obstructive sleep apnea (ICD-10 - G47.33) 04/07/2025 Other obesity due to excess calories (ICD-10 - E66.09) 04/07/2025 Anxiety (ICD-10 - F41.9) 04/07/2025 Other This chart has been transcribed by a computerized dictation system. There are likely to be multiple director of physical therapy inaccuracies despite chart review. PLAN OF TREATMENT Medication Medication Name Sig Start Date Stop Date Notes CPAP Supplies . Use as directed . Daily Desvenlafaxine Succinate ER 100 MG 1 tablet Orally Once a day for 90 Days Replacement CPAP Machine wit h accessories 12cm of H20 Intranasally Daily Lisinopril 10 MG TAKE 1 TABLET BY MIGUELANGEL TH EVERY DAY Albuterol Sulfate HFA Voquezna 10 MG 1 tablet Orally Once a day for 30 day(s) 04/07/2025 Pantoprazole Sodium 40 MG 1 tablet Orally Once a day Treatment Notes Assessment Notes Other This chart has been transcribed by a computerized dictation system. There are likely to be multiple director of physical therapy inaccuracies despite chart review. Next Appt Details Follow Up: 3 Months, Reason: Follow-up Provider Name:Hong burkett, 11/21/2025 07:15:00 AM, [address] [place] [address], [phone], Provider Name:Hong burkett, 12/16/2025 07:15:00 AM, [address] [place] [address], [phone], Provider Name:Hong burkett, 12/20/2025 07:15:00 AM, [address] [place] [address], [phone], Progress Notes * Examination Category Sub-Category Detail Notes Category Not es General Examination GENERAL APPEARANCE: in no ac isaac distress, well developed, well nourished HEAD: normocephalic, [...] alert and oriented x 3, nonfocal SKIN: normal, no suspiciou s lesions, warm and dry EXTREMITIES: no clubbing, cyanosi [...] asthma, and GERD , is here for a follow-up. I discussed her labs with her which are within acceptable range except for her vitamin D level that is on the low side. I will start her on vitamin D3 5000 units daily. Patient tells me that she received a cortisone injection in her left knee on Friday from her orthopedic surgeon and will bereceiving a gel injection in her joint soon. Patient's depression and anxiety are well-controlled on current dose of desvenlafaxine. Her blood pressure is well-controlled on current dose of lisinopril. She denies chest pain, palpitations, or shortness of breath. Patient tells me that her broker associate stopped her pantoprazole but she has still been taking it due to persistent GERD symptoms and a burning sensation in her throat. She does not feel that it is as effective anymore. I will start her on Voquezna 10mg daily. I provided her some samples of the medication to try.
--- OUTSIDE RECORDS SUMMARY | 2025-07-05 08:09 | XMS_ITS ---
Author Organization Jorge Fraser Address [address] [place] [address] Care Team Providers Care Still Operator Whiskey Name Role Phone Hong Patel Primary Care Provider REASON FOR VISIT Cpap Encounters Encounter Location Date Provider Diagnosis Jorge Fraser [address] [address] 07/05/20 Hong Patel PLAN OF TREATMENT Next Appt Details Provider Name:Hong burkett, 11/21/2025 07:15:00 AM, [address] [place] [address], [phone], Provider Name:Hong burkett, 12/16/2025 07:15:00 AM, [address] [place] [address], [phone], Provider Name:Hong burkett, 12/20/2025 07:15:00 AM, [address] [place] [address], [phone],
--- OUTSIDE RECORDS SUMMARY | 2025-07-08 02:15 | XMS_ITS ---
Author Organization Jorge Fraser Address [address] [place] [address] Care Team Providers Care Senior Animator Name Role Phone TedamdelaineHong Primary Care Provider REASON FOR VISIT (IN [...] FOR 90 DAYS for 90 Not-Taking Nystatin-Triamcinolone 900391-4.1 UNIT/GM 1 application Externally Twice a day [...] a nonsmoker Section Notes: Works at a [employer] Blood pressure systolic 110 mm Hg 07/08/20 25 Blood pressure diastolic 72 mm Hg 025 Heart Rate 84 /min 07/08/2025 Height 62 in 07/08/2025 Weight 210 lbs 07/08/2025 BMI 38.41 kg/m2 07/08/2025 Encounters Encounter Location Date Provider Diagnosis [email or web address] [address] 07/08/2025 Hong Patel Essential hypertensi on I10 [...] system. There are likely to be multiple buggy loader inaccuracies despite chart review. PLAN OF TREATMENT [...] system. There are likely to be multiple buggy loader inaccuracies despite chart review. Pending Test Test Name Order Date Urinalysis, Complete-[id number] 07/08/2025 Urine Culture, Routine-[id number] 07/08/2025 Next Appt Details Follow Up: 3 Months, Reason: Follow-up [facility] Dr. Patel Provider Name:Hong burkett, 11/21/2025 07:15:00 AM, [address] [place] [address], [phone], Provider Name:Hong burkett, 12/16/2025 07:15:00 AM, [address] [place] [address], [phone], Provider Name:Hong burkett, 12/20/2025 07:15:00 AM, [address] [place] [address], [phone], Progress Notes * Examination Category Sub-Category Detail Notes Category Not es General Examination GENERAL APPEARANCE: in no ac [place] distress, well developed, well nourished HEAD: normocephalic, [...] for a follow-up. Patient has joined [facility] [employer] and lost about 9 pounds since last [...]
--- OUTSIDE RECORDS SUMMARY | 2025-08-08 06:31 | XMS_ITS ---
Author Organization Jorge Fraser Address [address] [facility] [place] [address] Care Team Providers Care Crusher Feeder Name Role Phone Hong Patel Primary Care Provider REASON FOR VISIT Clinical for coverage Encounters Encounter Location Date Provider Diagnosis Jorge Fraser [address] [place] [address] 08/08/20 Hong Patel PLAN OF TREATMENT Next Appt Details Provider Name:Hong burkett, 11/21/2025 07:15:00 AM, [address] [place] [address], [phone], Provider Name:Hong burkett, 12/16/2025 07:15:00 AM, [address] [place] [address], [phone], Provider Name:Hong burkett, 12/20/2025 07:15:00 AM, [address] [place] [address], [phone],
--- OUTSIDE RECORDS SUMMARY | 2025-10-07 02:30 | XMS_ITS ---
Author Organization Ted Evelio Address [address] [place] [address] Care Team Providers Care Ceramic Engineer Name Role Phone TedmadelaineHong Primary Care Provider [phone] REASON FOR VISIT (IN OFFICE), Follow Up MEDICATIONS Medication SIG (Take, Route, Frequency, Duration) Notes Start Date End Date Status Replacement CPAP Machine with accessories 12cm of H20 Intranasally Daily Active Desvenlafaxine Succinate ER 100 MG TAKE 1 TABLET BY MOUTH EVERY DAY for 90 Active Desvenlafaxine Succinate ER 100 MG 1 tablet Orally Once a day for 90 Days Active CPAP Supplies . Use as directed . Daily Active Voquezna 10 MG 1 tablet Orally Once a day for 30 day(s) Active Multivitamins Active Albuterol Sulfate HFA Active Lisinopril 10 MG TAKE 1 TABLET BY MIGUELANGEL TH EVERY DAY Active Fluticasone Propionate 50 MCG/ACT SPRAY 1 SPRAY INTO EACH NOSTRIL EVERY DAY for 30 Active SOCIAL HISTORY Tobacco Use: Social History Observation Description Date Details (start date - stop date) Never Smoker NA - NA Sex Assigned At : Social History Observation Description Sex Assigned At Unknown Tobacco Use/Smoking Question Answer Notes Are you a nonsmoker Section Notes: Works at a [employer] Blood pressure systolic 120 mm Hg 10/07/20 25 Blood pressure diastolic 70 mm Hg 025 Heart Rate 72 /min 10/07/2025 Height 62 in 10/07/2025 Weight 214.6 lbs 10/07/2025 BMI 39.25 kg/m2 10/07/2025 Encounters Encounter Location Date Provider Diagnosis Jorge Fraser [address] [place] [address] 10/07/2025 Hong Patel Essential hypertensi on I10 ; [...] to excess calories E66.09 ; Anxiety F41.9 and Laboratory tests ordered as part of a complete physical exam (CPE) Z00.00 ASSESSMENTS Encounter Date Diagnosis Assessment Notes Treatment Notes Treatment Clinical Notes Section Notes 10/07/2025 Essential hypertension (ICD-10 - I10) 10/07/2025 ETOH abuse (ICD-10 - F10.10) 10/07/2025 Primary osteoarthritis involving multiple joints (ICD-10 - M15.0) 10/07/2025 Current moderate episode of major depressive disorder without prior episode (ICD-10 - F32.1) 10/07/2025 Mild intermittent asthma without complication (ICD-10 - J45.20) 10/07/2025 Gastroesophageal reflux disease without esophagitis (ICD-10 - K21.9) 10/07/2025 Arthralgia of right temporomandibular joint (ICD-10 - M26.621) 10/07/2025 Atrophic vaginitis (ICD-10 - N95.2) 10/07/2025 Obstructive sleep apnea (ICD-10 - G47.33) 10/07/2025 Other obesity due to excess calories (ICD-10 - E66.09) 10/07/2025 Anxiety (ICD-10 - F41.9) 10/07/2025 Laboratory tests ordered as part of a complete physical exam (CPE) (ICD-10 - Z00.00) 10/07/2025 Other This chart has been transcribed by a computerized dictation system. There are likely to be multiple fast food delivery driver inaccuracies despite chart review. PLAN OF TREATMENT Medication Medication Name Sig Start Date Stop Date Notes Replacement CPAP Machine wit h accessories 12cm of H20 Intranasally Daily Desvenlafaxine Succinate ER 100 MG 1 tablet Orally Once a day for 90 Days CPAP Supplies . Use as directed . Daily Voquezna 10 MG 1 tablet Orally Once a day for 30 day(s) Albuterol Sulfate HFA Lisinopril 10 MG TAKE 1 TABLET BY MIGUELANGEL TH EVERY DAY Treatment Notes Assessment Notes Other This chart has been transcribed by a computerized dictation system. There are likely to be multiple fast food delivery driver inaccuracies despite chart review. Pending Test Test Name Order Date Urinalysis, Complete-[id number] 10/07/2025 Vitamin D, 79-Scdfuar-[id number] 10/07/2025 LP+Non-HDL Cholesterol-[id number] 10/07/2025 TSH+Free [id number] 10/07/2025 Comp. Metabolic Panel [id number] 2024 Vitamin B12 and Folate-[id number] 10/07/2025 CBC with Diff, Platelet, [id number] 05/2025 Next Appt Details Follow Up: 12/14/25, 12/18/25 , Reason: Annual physical exam with Dr. Patel,[facility] visit Provider Name:Hong burkett, 11/21/2025 07:15:00 AM, [address] [place] [address], [phone], Provider Name:Hong burkett, 12/16/2025 07:15:00 AM, [address] [place] [address], [phone], Provider Name:Hong burkett, 12/20/2025 07:15:00 AM, [address] [place] [address], [phone], Progress Notes * Examination Category Sub-Category Detail Notes Category Not es General Examination GENERAL APPEARANCE: in no ac [place] distress, well developed, well nourished HEAD: normocephalic, [...] Sub-Category Detail Notes Category Not es Symptom(s) 50-year-old fem dajuan patient with history of anxiety, depression, hypertension, obstructive sleep apnea, bronchial asthma, and GERD , is here for a follow-up. Patient is compliant with her medications without any side effects. She tells me that she has gotten a new CPAP machine which is helping her obstructive sleep apnea. Patient has put on more weight since her last visit. She tells me that she is planning to follow up with bariatric surgery. Possibly patient about May agonist and the latest indications obstructive sleep apnea. She also tells me that she continues to drink alcohol on a regular basis. I am emphasized importance of abstaining from alcohol. Had anxiety and depression is well controlled on current dose of Pristiq. Patient's blood pressure is well-controlled. She denies chest pain, palpitation, shortness of breath. She tells me thatToneyanastasia has made a significant change in her acid reflux disease. The medication is very expensive. She is supposed to have an EGD by bariatric surgery who performed her gastric sleeve procedure. I ordered complete left side with him prior to her annual physical exam.
--- OUTSIDE RECORDS SUMMARY | 2025-10-10 05:37 | XMS_ITS ---
[facility] Address [address] [place] [address] Care Team Providers Care Wafer Machine Operator Name Role Phone JorgeHong Primary Care Provider [phone] REASON FOR VISIT start med MEDICATIONS Medication SIG (Take, Route, Fr equency, Duration) Notes Start Date End Date Status Wegovy 0.25 MG/0.5ML 0.25mg Subcutaneous Once a week for 30 days 10/11/2025 Active Encounters Encounter Location Date Provider [facility] [address] [place] [address] 10/10/2025 Hong Patel Obstructive sleep apnea G47.33 [...] 10/11/2025 Next Appt Details Provider Name:Hong burkett, 11/21/2025 07:15:00 AM, [address] [place] [address], [phone], Provider Name:Hong burkett, 12/16/2025 07:15:00 AM, [address] [place] [address], [phone], Provider Name:Hong burkett, 12/20/2025 07:15:00 AM, [address] [place] [address], [phone],
--- OUTSIDE RECORDS SUMMARY | 2025-10-10 10:45 | XMS_ITS ---
Author Organization [facility] Address [address] [place] [address] Care Team Providers Care Elevator Attendant Name Role Phone TedHong burkett Primary Care Provider ALLERGIES No Known Allergies REASON FOR VISIT (TELEVISIT), Follow Up MEDICATIONS Medication SIG (Take, Route, Frequency, Duration) Notes Start Date End Date Status Voquezna 10 MG 1 tablet Orally Once a day for 30 day(s) Active Replacement CPAP Machine with accessories 12cm of H20 Intranasally Daily Active CPAP Supplies . Use as directed . Daily Active Lisinopril 10 MG TAKE 1 TABLET BY MIGUELANGEL TH EVERY DAY Active Desvenlafaxine Succinate ER 100 MG 1 tablet Orally Once a day for 90 Days Active Fluticasone Propionate 50 MCG/ACT SPRAY 1 SPRAY INTO EACH NOSTRIL EVERY DAY for 30 Active Multivitamins Active Albuterol Sulfate HFA Active Desvenlafaxine Succinate ER 100 MG TAKE 1 TABLET BY MOUTH EVERY DAY for 90 Active Zepbound 2.5 MG/0.5ML 2.5 MG Subcutaneou s once a week for 30 days 10/10/2025 Active SOCIAL HISTORY Tobacco Use: Social History [...] 2 Interpretation Negative Section Notes: Works at a [employer] FT Encounters Encounter Location Date Provider Diagnosis Jorge Fraser, [address] [place] [address] 10/10/2025 Hong Patel Current moderate epi sode of major depressive disorder without prior episode F32.1 ; Obstructive sleep apnea G47.33 ; Essential hypertension I10 ; ETOH abuse F10.10 ; Primary osteoarthritis involving multiple joints M15.0 ; Mild intermittent asthma without complication J45.20 ; Gastroesophageal reflux disease without esophagitis K21.9 ; Arthralgia of right temporomandibular joint M26.621 ; Atrophic vaginitis N95.2 ; Other obesity due to excess calories E66.09 and Anxiety F41.9 ASSESSMENTS Encounter Date Diagnosis Assessment Notes Treatment Notes Treatment Clinical Notes Section Notes 10/10/2025 Current moderate episode of major depressive disorder without prior episode (ICD-10 - F32.1) 10/10/2025 Obstructive sleep apnea (ICD-10 - G47.33) 10/10/2025 Essential hypertension (ICD-10 - I10) 10/10/2025 ETOH abuse (ICD-10 - F10.10) 10/10/2025 Primary osteoarthritis involving multiple joints (ICD-10 - M15.0) 10/10/2025 Mild intermittent asthma without complication (ICD-10 - J45.20) 10/10/2025 Gastroesophageal reflux disease without esophagitis (ICD-10 - K21.9) 10/10/2025 Arthralgia of right temporomandibular joint (ICD-10 - M26.621) 10/10/2025 Atrophic vaginitis (ICD-10 - N95.2) 10/10/2025 Other obesity due to excess calories (ICD-10 - E66.09) 10/10/2025 Anxiety (ICD-10 - F41.9) 10/10/2025 Other This chart has been transcribed by a computerized dictation system. There are likely to be multiple journal box inspector inaccuracies despite chart review. PLAN OF TREATMENT Medication Medication Name Sig Start Date Stop Date Notes Voquezna 10 MG 1 tablet Orally Once a day for 30 day(s) Replacement CPAP Machine wit h accessories 12cm of H20 Intranasally Daily CPAP Supplies . Use as directed . Daily Lisinopril 10 MG TAKE 1 TABLET BY MIGUELANGEL TH EVERY DAY Desvenlafaxine Succinate ER 100 MG 1 tablet Orally Once a day for 90 Days Albuterol Sulfate HFA Zepbound 2.5 MG/0.5ML 2.5 MG Subcutaneou s once a week for 30 days 10/10/2025 Treatment Notes Assessment Notes Other This chart has been transcribed by a computerized dictation system. There are likely to be multiple journal box inspector inaccuracies despite chart review. Next Appt Details Follow Up: 4 Weeks, Reason: Follow-up [facility] Dr. Patel Provider Name:Hong burkett, 11/21/2025 07:15:00 AM, [address] [place] [address], [phone], Provider Name:Hong burkett, 12/16/2025 07:15:00 AM, [address] [place] [address], [phone], Provider Name:Hong burkett, 12/20/2025 07:15:00 AM, [address] [place] [address], [phone], History and Physical Notes * HPI (History of Present Illness) Category Sub-Category Detail Notes Category Not es Symptom(s) 50-year-old fem dajuan patient with history of anxiety, depression, hypertension, obstructive sleep apnea, bronchial asthma, and GERD, calls to request a prescription for GIP bowleggedness. At her last visit I suggested starting her on the medication to help her with weight loss and also have obstructive sleep apnea. She told me that she wants to discuss the issue with her bariatric surgeon first. Today she calls and states that she spoke with her bariatric surgeon who was in integument with her to start the medication. I started the patient onZepbound 2.5 MG subcutaneous once a week. I advised the patient to have a small frequent meals at regular intervals. I emphasized the importance of regular exercise. Her other chronic conditions are well controlled on current medications.
--- OUTSIDE RECORDS SUMMARY | 2025-10-13 05:16 | XMS_ITS ---
Author Organization [facility] Address [address] [place] [address] Care Team Providers Care Meat Clerk Name Role Phone Hong Patel Primary Care Provider REASON FOR VISIT Message Encounters Encounter Location Date Provider Diagnosis Jorge Fraser [address] [address] 10/13/20 Hong Patel PLAN OF TREATMENT Next Appt Details Provider Name:Hong burkett, 11/21/2025 07:15:00 AM, [address] [place] [address], [phone], Provider Name:Hong burkett, 12/16/2025 07:15:00 AM, [address] [place] [address], [phone], Provider Name:Hong burkett, 12/20/2025 07:15:00 AM, [address] [place] [address], [phone],
[2025-10-17 07:32] LABS: MANUAL DIFF FLAG NO
--- OUTSIDE RECORDS SUMMARY | 2025-10-17 07:35 | XMS_ITS | Clinical Summary ---
Author Organization [facility] Address [address] [place] [address] Care Team Providers Care Rural Electrification Engineer Name Role Phone Hong Patel MD Primary Care Provider [phone] Allergies No known active allergies Medications Medication [...] age to complete this topic Care Teams Rural Electrification Engineer Relationship Specialty Start Date End Date Hong Patel MD [address] [place] [address] [place] [address] PCP - General Internal Medicine 03/02/21
--- OUTSIDE RECORDS SUMMARY | 2025-10-17 07:35 | XMS_ITS | Clinical Summary ---
Author Organization [facility] Address [address] [place] [address] Care Team Providers Care Inner Tube Inserter Name Role Phone Unavailable Primary Care Provider [...] Drug Screen 12/01/2024 Depression Annual Screen 12/01/2024 [id number] ( season) 2025 021, 03/26/2021 Imm-Influenza (#1) 2025 10/05/2020, 1 , 09/23/2018, Additional history exists Imm-Pneumococcal 50+ (1 of 1 - PCV) 2025 Imm-Zoster, Recombinant (1 of 2) 2025 Cervical Ablation/Cold-Knife Conization Discontinued Cervical Cryotherapy Discontinued Colposcopy Discontinued Excision/Leep Discontinued HPV Genotyping Discontinued Vaginal Pap Discontinued Vulvoscopy Discontinued
--- OUTSIDE RECORDS SUMMARY | 2025-10-17 07:37 | XMS_ITS | Patient Health Record ---
Author Organization [facility] Address [address] [facility] [place] [address] Care Team Providers Care Fine Grade Operator Name Role Phone Hong Patel MD Primary Care Provider Unavaila Marcos Rojas Unavailable [phone] Reason For Referral No Information Medications Medication [...] Status Risk Notes Problem Plantar fascial fibromatosis (84688875) Plantar fascial fibromatosis (M72.2) Active confirmed Plan Of Treatment No Information Insurance Providers Payer Name Payer Address Payer Phone Subscriber Number Group Number Insured Name Patient Relationship to Insured Coverage Start Date Coverage End Date [employer] ([facility] [address] [id number] Tone, Nora Self - patient is the insured Medical (General) History Medical History History ICD Code Anxiety Arthritis asthma Back,Hip,and Knee pain Depression Headaches/Migraines High blood pressure Lyme disease Sinus conditions Warts Chicken pox Surgical History Surgery Date(Month/Year) Laphole Adhesion Rem C- section 05/10/1998 02/06/00 D+C 1996 Uterine ablation
--- OUTSIDE RECORDS SUMMARY | 2025-10-17 07:38 | XMS_ITS | Patient Health Record ---
Author Organization [facility] Address [address] [place] [address] Care Team Providers Care Chancery Clerk Name Role Phone Hong Patel Primary Care Provider ALLERGIES No Known Allergies RESULTS Component Value Reference Range Notes IGP, Aptima HPV- Reviewed date:03/15/2025 07:40:54 PM Interpretation: Performing Lab:[facility], [address] [place] [address], Phone - [phone], Director - [facility] Notes/Report: Clinical Information:[id number] No. of containers..01 ThinPrep Vial DIAGNOSIS: EPITHELIAL CELL ABNORMALITY. LOW GRADE SQUAMOUS INTRAEPITHELIAL LESION (LSIL). Specimen adequacy: Satisfact ory for evaluation. No endocervical component is identified. Clinician provided ICD10: Z1 2.4 Performed by: Rahul trotter, Lactation Consultant (ASCP) Electronically signed by: Juan Pablo Leyva [...] Alvaro Arreola, [address], [place], Phone - [phone], Director - [facility] Notes/Report: Clinical Information:[id number] No. of containers..01 ThinPrep Vial DIAGNOSIS: NEGATIVE FOR INTRAEPITHELIAL LESION OR MALIGNANCY. 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 Specimen adequacy: Satisfact ory for evaluation. No endocervical component is identified. Clinician provided ICD10: R8 7.612 Performed by: Rahul trotter, Lactation Consultant (ASCP) QC reviewed by: Alberta Sanon, Lactation Consultant (ASC) . . Note: The Pap smear [...] HPV types (16,18,31,33,35,39,45,51,52, 56,58,59,66,68) without differentiation. Urinalysis, Complete-[id number] Reviewed date:12/18/2024 02:02:59 PM Interpretation: Performing Lab:[facility], [address] [facility], Phone - [phone], Director - [facility] Notes/Report: Specific [place] 1.027 1.005-1.030 pH 6.0 5.0-7.5 Urine-Color Yellow [...] seen/Few Yeast Trichomonas Comment CBC With Differential/Platel et-256089 Reviewed date:12/18/2024 02:02:59 PM Interpretation: Performing Lab:[facility], [address] [place] [address], Phone - [phone], Director - [place] Notes/Report: WBC 11.9 3.4-10.8 [...] Verifie d by microscopic examination. Vitamin D, 54-Kdcnmzz-992923 Reviewed date:12/18/2024 02:02:59 PM Interpretation: Performing Lab:[facility], [address] [place] [address], [place], Phone - [phone], Director - [place] Notes/Report: Vitamin D, 25-Hydroxy 39.1 30.0-100.0 ng/mL Vitamin D deficiency has been defined by the [place] of Medicine and an Endocrine Society practice guideline as a level of serum 25-OH vitamin D less than 20 ng/mL (1,2). The Endocrine Society went on to further define vitamin D insufficiency as a level between 21 and 29 ng/mL (2). 1. IOM ([place] of Medicine). 2010. Dietary reference intakes for calcium and D. [place]: The National Academies Press. 2. Gus MF, Sloane GUERRA, Riley LEMUS, et al. Evaluation, treatment, and prevention of vitamin D deficiency: an Endocrine Society clinical practice guideline. JCEM. 2010; 96(7):1911-30. LP+Non-HDL Cholesterol-36415 5 Reviewed date:12/18/2024 02:02:59 PM Interpretation: Performing Lab:[facility], [employer] [facility], Phone - [phone], Director - MDJodry Notes/Report: Cholesterol, Total 159 100-199 mg/dL Triglycerides 85 0-149 mg/dL HDL Cholesterol 43 >39 mg/dL VLDL Cholesterol Juancho 16 5-40 mg/dL LDL Chol Calc ([facility]) 100 0-99 mg/dL LDL Calc Comment: Non-HDL Cholesterol 116 0-129 mg/dL TSH+Free [id number] Reviewed date:12/18/2024 02:02:59 PM Interpretation: Performing Lab:[facility], [employer] [facility], Phone - [phone], Director - MDJodry Notes/Report: TSH 1.220 0.450-4.500 uIU/mL T4,Free(Direct) 0.97 0.82-1.77 ng/dL Comp. 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 PROBLEMS Problem Type ICD Code Onset Dates Problem Status W/U Status Risk SNOMED Code Notes Problem Depression (F32.9) Active confirmed 354 12465 Problem Atrophic vaginitis (N95.2) Active confirmed 34624845 Problem Anxiety (F41.9) Active confirmed 834978 02 Problem Plantar fasciitis (M72.2) Active confirmed 336361933 Problem PTSD (post-traumatic stress disorder) (F43.10) Active confirmed 96446647 Problem ETOH abuse (F10.10) Active confirmed 15 789502 Problem Other obesity due to excess calories (E66.09) Active confirmed 441706115 Problem Cutaneous candidiasis (B37.2) Active confirmed 64030653 Problem Obstructive sleep apnea (G47.33) Active confirmed 99077523 Problem Essential hypertension (I10) Active confirmed 34604183 Problem Gastroesophageal reflux disease without esophagitis (K21.9) Active confirmed Gastroesophagea l reflux disease without esophagitis (805060705) Problem Primary osteoarthritis involving multiple joints (M15.0) Active confirmed 964434444 Problem Mild intermittent asthma without complication (J45.20) Active confirmed Mild intermitte nt asthma (298074224) Problem Chest pain, unspecified chest pain type (R07.9) Active confirmed 23968087 Problem Arthralgia of right temporomandibular joint (M26.621) Active confirmed 36418287 Problem Current moderate episode of major depressive disorder without prior episode (F32.1) Active confirmed 37875813 Problem Adrenal nodule (E27.8) Active confirmed 347197792 Problem Solitary thyroid nodule (E04.1) Active confirmed 052683179 VITAL SIGNS Heart Rate 72 /min 10/07/2025 Blood pressure diastolic 70 mm Hg 10/07/2025 Height 62 in 10/07/2025 Blood pressure systolic 120 mm Hg 10/07/2025 Weight 214.6 lbs 10/07/2025 BMI 39.25 kg/m2 10/07/2025 Encounters Encounter Location Date Provider Diagnosis [address] [address] 11/25/2024 Hong Patel [address] [address] 11/25/2024 Hong Patel [address] [address] 11/25/2024 Hong Patel COVID-19 [address]07.[address] [address] 12/13/2024 Hong Patel Annual physical exam Z00.00 ; Current moderate episode of major depressive disorder without prior episode F32.1 and Acute URI J06.[address] [address] 12/17/2024 Hong Patel Encounter for screen ing for malignant neoplasm of cervix Z12.4 and Encounter for screening mammogram for malignant neoplasm of breast Z12.[address] [address] 12/17/2024 Hong Patel Laboratory examinati on ordered as part of a complete physical examination Z00.[address] [address] 01/04/2025 Hong Patel [address] [address] 01/13/2025 Hong Patel LGSIL on Pap smear [...] to excess calories E66.09 and Anxiety F41.[address] [address] 02/28/2025 Hong Patel Acute URI J06.9 ; Ch est congestion R09.89 ; Vaginal yeast infection B37.31 and Respiratory infection J98.[address] [address] 03/10/2025 Hong Patel LGSIL on Pap smear o f cervix R87.[address] [address] 04/07/2025 Hong Patel LGSIL on Pap smear [...] to excess calories E66.09 and Anxiety F41.[address] [address] 07/05/[address] [address] 07/08/2025 Hong Patel Essential hypertensi on I10 [...] smear of cervix R87.612 and Dysuria R30.[address] [address] 08/08/2025 Hong Patel [address] [address] 10/07/2025 Hong Patel Essential hypertensi on I10 [...] of a complete physical exam (CPE) Z00.[address] [address] 10/10/2025 Hong Patel Obstructive sleep ap michael G47.[address] [address] 10/10/2025 Hong Patel Current moderate epi sode [...] to excess calories E66.09 and Anxiety F41.[address] [address] 10/13/2025 Hong Patel ASSESSMENTS Encounter Date Diagnosis Assessment Notes Treatment [...] system. There are likely to be multiple cyanide furnace operator inaccuracies despite chart review. 01/13/2025 Other This chart has been transcribed by a computerized dictation system. There are likely to be multiple cyanide furnace operator inaccuracies despite chart review. 04/07/2025 Other This chart has been transcribed by a computerized dictation system. There are likely to be multiple cyanide furnace operator inaccuracies despite chart review. 07/08/2025 Other This chart has been transcribed by a computerized dictation system. There are likely to be multiple cyanide furnace operator inaccuracies despite chart review. 10/07/2025 Other This chart has been transcribed by a computerized dictation system. There are likely to be multiple cyanide furnace operator inaccuracies despite chart review. 12/17/2024 Other This chart has been transcribed by a computerized dictation system. There are likely to be multiple cyanide furnace operator inaccuracies despite chart review. 03/10/2025 Other This chart has been transcribed by a computerized dictation system. There are likely to be multiple cyanide furnace operator inaccuracies despite chart review. 02/28/2025 Other This chart has been transcribed by a computerized dictation system. There are likely to be multiple cyanide furnace operator inaccuracies despite chart review. 11/25/2024 Other This chart has been transcribed by a computerized dictation system. There are likely to be multiple cyanide furnace operator inaccuracies despite chart review. 10/10/2025 Other This chart has been transcribed by a computerized dictation system. There are likely to be multiple cyanide furnace operator inaccuracies despite chart review. PLAN OF TREATMENT Pending Test Test Name Order Date MRI : Knee, right 12/14/2014 X ray : Knee, right 09/15/2014 X ray : Hand, left 07/18/2016 X ray : Wrist, left 07/18/2016 EMG/NCV ARMS 08/20/2016 HPV, high+low-risk 11/28/2021 HPV, high+low-risk 09/28/2018 HPV, high+low-risk 11/22/2020 HPV, high+low-risk 12/09/2022 HPV, high+low-risk 09/29/2019 MAMMOGRAM, SCREENING 12/09/2022 MAMMOGRAM, SCREENING 09/29/2019 MAMMOGRAM, SCREENING 03/25/2013 MAMMOGRAM, SCREENING 09/24/2017 MAMMOGRAM, SCREENING 09/28/2018 MAMMOGRAM, SCREENING 11/28/2021 MAMMOGRAM, SCREENING 12/17/2024 MAMMOGRAM, SCREENING 06/26/2016 MAMMOGRAM, SCREENING 12/16/2023 Ultrasound : Doppler : Veins Leg Right 0 04/21/2015 Ultrasound : Pelvic Non/OB 07/26/2021 Ultrasound : Thyroid Sonography B-Scan 0 07/26/2021 Ultrasound : Transvaginal 07/26/2021 GUAIAC, SINGLE SPECIMEN 09/29/2019 GUAIAC, SINGLE SPECIMEN 12/09/2022 GUAIAC, SINGLE SPECIMEN 11/28/2021 GUAIAC, SINGLE SPECIMEN 09/28/2018 GUAIAC, SINGLE SPECIMEN 12/17/2024 GUAIAC, SINGLE SPECIMEN 12/16/2023 GUAIAC, SINGLE SPECIMEN 06/26/2016 GUAIAC, SINGLE SPECIMEN 09/24/2017 GUAIAC, SINGLE SPECIMEN 11/22/2020 *EKG 12/08/2012 *EKG 12/06/2015 *EKG 11/12/2012 *SPIROMETRY 11/12/2012 Thin Prep 02/27/2015 Thin Prep 02/24/2014 Thin Prep 03/25/2013 CPAP Titration Study 02/17/2013 EMG 07/31/2015 Drain/Inject Joint/Bursa (MEDIUM) 2018 HEMOGLOBIN A1C 06/24/2016 HEMOGLOBIN A1C 08/12/2017 HEMOGLOBIN A1C 01/12/2015 COMPREHENSIVE METABOLIC PANL 01/12/2015 COMPREHENSIVE METABOLIC PANL 05/03/2016 COMPREHENSIVE METABOLIC PANL 08/12/2017 COMPREHENSIVE METABOLIC PANL 07/26/2021 COMPREHENSIVE METABOLIC PANL 07/10/2020 LIPID PANEL 07/10/2020 LIPID PANEL 07/26/2021 LIPID PANEL 08/12/2017 LIPID PANEL 05/03/2016 LIPID PANEL 01/12/2015 THYROID PANEL 01/12/2015 THYROID PANEL 05/03/2016 THYROID PANEL 08/12/2017 THYROID PANEL 07/10/2020 THYROID PANEL 07/26/2021 FSH 07/26/2021 FSH 07/10/2020 LH 07/26/2021 LH 07/10/2020 URINARY MICROALBUMIN 01/12/2015 25OH VITAMIN D 01/12/2015 25OH VITAMIN D 08/12/2017 25OH VITAMIN D 05/03/2016 25OH VITAMIN D 07/26/2021 25OH VITAMIN D 07/10/2020 COMPLETE CBC WITH DIFF 07/26/2021 COMPLETE CBC WITH DIFF 07/10/2020 COMPLETE CBC WITH DIFF 05/03/2016 COMPLETE CBC WITH DIFF 08/12/2017 COMPLETE CBC WITH DIFF 01/12/2015 URINE DIPSTICK 01/12/2015 COMPLETE URINALYSIS 05/03/2016 COMPLETE URINALYSIS 08/12/2017 COMPLETE URINALYSIS 07/26/2021 COMPLETE URINALYSIS 07/10/2020 CYTOPATHOLOGY (CONTRACTS LAW PROFESSOR) 12/09/2022 CYTOPATHOLOGY (CONTRACTS LAW PROFESSOR) 11/28/2021 CYTOPATHOLOGY (CONTRACTS LAW PROFESSOR) 12/16/2023 CT Head/Brain W/O Contrast 02/05/2022 25OH VITAMIN D 11/06/2022 CBC (COMPLETE BLOOD COUNT) WITH DIFF 05/2022 CHLAMYDIA GC AMP PROBE, URINE 04/17/2022 COMPREHENSIVE METABOLIC PANEL 11/06/2022 HPV, HIGH RISK 12/16/2023 LIPID PANEL 11/06/2022 MICROALBUMIN, URINE 11/06/2022 THYROID PANEL (TSH, FT4) 11/06/2022 URINALYSIS, COMPLETE 11/06/2022 Urinalysis, Complete-[id number] 07/08/2025 Urinalysis, Complete-[id number] 10/07/2025 Urine Culture, Routine-[id number] 07/08/2025 Vitamin D, 88-Fjfykgt-149822 10/07/2025 LP+Non-HDL Cholesterol-502317 10/07/2025 TSH+Free T4-848667 10/07/2025 Comp. Metabolic Panel [phone] 2024 Vitamin B12 and Folate-942208 10/07/2025 CBC with Diff, Platelet, [id number] 05/2025 Next Appt Details Provider Name:Hong burkett, 11/21/2025 07:15:00 AM, [address] [place] [address], [phone], Provider Name:Hong burkett, 12/16/2025 07:15:00 AM, [address] [place], [address], Provider Name:Hong Upton Ted burkett, 12/20/2025 07:15:00 AM, [address] [facility], [address], Insurance Providers Payer Name Payer Address Payer Phone Subscriber Number Group Number Insured Name Patient Relationship to Insured Coverage Start Date Coverage End Date ORLANDO HASKINS([facility]) [address] [place] [id number] Nora Wayne Self - patient is the [...]
[2025-10-17 07:53] LABS: Hematocrit 42.3 % (37.0-47.0); Hemoglobin 13.5 g/dl (12.0-16.0); Imm Gran Abs Auto 0.02 X10*3/uL (0.00-0.03); Imm Gran Pct Auto 0.3 % (0.0-0.4); Lymphocytes Absolute Auto 2.3 X10*3/uL (1.2-4.9); Mean Corpuscular HGB Conc 31.9 g/dl (31.0-35.0); Mean Corpuscular Hemoglobin 26.7 pg (27.0-33.0); Mean Corpuscular Volume 83.6 fL (80.0-98.0); NRBC Abs Auto 0.000 X10*3/uL (0.0-0.012); NRBC Pct Auto 0.0 /100WBC (0.0-0.2); Platelet Count 255 X10*3/uL (160-400); Red Blood Count 5.06 X10*6/uL (4.20-5.50); White Blood Count 7.3 X10*3/uL (4.8-10.8)
[2025-10-17 08:07] LABS: Appearance Urine Clear; Glucose Urine UA Negative (Negative); PH 7.0 (5.0-9.0); Specific Gravity - Urine 1.015 (1.005-1.025)
[2025-10-17 08:26] LABS: Alanine Aminotransferase 24 U/L (0-31); Albumin Level 4.6 g/dL (3.5-5.0); Alkaline Phosphatase 99 U/L (39-117); Anion Gap 14 (12-20); Aspartate Amino Transferase 30 U/L (5-31); Blood Urea Nitrogen 13 mg/dL (9-16); Calcium 9.6 mg/dL (8.4-10.2); Carbon Dioxide 29 mmol/L (22-29); Chloride 104 mmol/L (96-108); Cholesterol 169 mg/dL (<200); Estimated Glomerular Filt Rate > 60; HDL Cholesterol 48 mg/dL (>40); Iron 65 mcg/dL (30-160); Percent Iron Saturation 24 % (15-50); Potassium 4.6 mmol/L (3.3-5.1); Sodium 142 mmol/L (135-145); Total Iron Binding Capacity 276 mcg/dL (228-428); Total Protein 7.4 g/dL (6.5-8.0); Triglycerides 82 mg/dL (<150); Unsaturated Iron Binding 211 ug/dL
[2025-10-17 08:43] LABS: Ferritin 146 ng/mL (10-250)
[2025-10-17 08:55] LABS: Folate 10.4 ng/mL (> or = 4.0); Vitamin B12 290 pg/mL (200-900)
== END 2025-10-17 07:14 | disposition home or self-care (01) ==
LOC: HO.LAB 07:13
PROVIDERS: PCP Internal Medicine; Visit Provider Physician Assistant Surgical
DX: Z13.1 Encounter for screening for diabetes mellitus (principal); Z13.6 Encounter for screening for cardiovascular disorders; Z13.29 Encounter for screening for other suspected endocrine disorder; Z98.84 Bariatric surgery status
CPT/HCPCS: 36415; 80053; 80061; 81003; 82306; 82607; 82728; 82746; 83036; 83525; 83540; 84425; 84443; 84590; 84630; 85025; 86140

== ENCOUNTER 2025-10-17 08:03 | Day surgery (SDC) | payer OTHER, SELFPAY ==
--- OUTSIDE RECORDS SUMMARY | 2024-12-17 02:46 | XMS_ITS ---
[facility] Address [address] [place] [address] Care Team Providers Care Advertising Teacher Name Role Phone Hong Patel Primary Care Provider RESULTS Component Value Reference Range Notes Urinalysis, Complete-[id number] Reviewed date:12/18/2024 02:02:59 PM Interpretation: Performing Lab:[facility], [facility], Phone - [phone], Director - Lucas Notes/Report: Specific Adrian 1.027 1.005-1.030 pH 6.0 5.0-7.5 Urine-Color Yellow Yellow Appearance Clear Clear WBC Esterase Negative Negative Protein Trace Negative/Trace Glucose Negative Negative Ketones Negative Negative Occult Blood Negative Negative Bilirubin Negative Negative Urobilinogen,Semi-Qn 1.0 0.2-1.0 mg/dL Nitrite, Urine Negative Negative Microscopic Examination Micr oscopic follows if indicated. Microscopic Examination See below: Micr oscopic was indicated and was performed. WBC None seen 0 - 5 /hpf RBC 0-2 0 - 2 /hpf Epithelial Cells (non renal) 0-10 0 - 10 /hpf Epithelial Cells (renal) Casts None seen None seen /lpf Cast Type Crystals Crystal Type Mucus Threads Bacteria None seen None seen/Few Yeast Trichomonas Comment CBC With Differential/Platel et-[id number] Reviewed date:12/18/2024 02:02:59 PM Interpretation: Performing Lab:[facility] [place], [address] [place], [place], Phone - [phone], Director - Lucas Notes/Report: WBC 11.9 3.4-10.8 x10E3/uL RBC 5.09 3.77-5.28 x10E6/uL Hemoglobin 13.3 11.1-15.9 g/dL Hematocrit 42.6 34.0-46.6 % MCV 84 79-97 fL MCH 26.1 26.6-33.0 pg MCHC 31.2 31.5-35.7 g/dL RDW 14.1 11.7-15.4 % Platelets 278 150-450 x10E3/uL Neutrophils 47 Not Estab. % Lymphs 23 Not Estab. % Monocytes 7 Not Estab. % Eos 22 Not Estab. % Basos 1 Not Estab. % Immature Cells Neutrophils (Absolute) 5.6 1.4-7.0 x10E3/uL Lymphs (Absolute) 2.7 0.7-3.1 x10E3/uL Monocytes(Absolute) 0.8 0.1-0.9 x10E3/uL Eos (Absolute) 2.6 0.0-0.4 x10E3/uL Baso (Absolute) 0.1 0.0-0.2 x10E3/uL Immature Granulocytes 0 Not Estab. % Immature Grans (Abs) 0.0 0.0-0.1 x10E3/uL NRBC Hematology Comments: Note: Verifie d by microscopic examination. Vitamin D, 82-Jtymchm-[id number] Reviewed date:12/18/2024 02:02:59 PM Interpretation: Performing Lab:[facility] [place], [address] [place] [address], Phone - [phone], Director - Lucas Notes/Report: Vitamin D, 25-Hydroxy 39.1 30.0-100.0 ng/mL Vitamin D deficiency has been defined by the [place] of Medicine and an Endocrine Society practice guideline as a level of serum 25-OH vitamin D less than 20 ng/mL (1,2). The Endocrine Society went on to further define vitamin D insufficiency as a level between 21 and 29 ng/mL (2). 1. IOM ([place] of [employer]). 2010. Dietary reference intakes for calcium and D. [place]: The National Academies Press. 2. Gus MF, Sloane NC, Riley LEMUS, et al. Evaluation, treatment, and prevention of vitamin D deficiency: an Endocrine Society clinical practice guideline. JCEM. 2010; 96(7):8061-30. LP+Non-HDL Cholesterol-48196 5 Reviewed date:12/18/2024 02:02:59 PM Interpretation: Performing Lab:[place], [facility], Phone - [phone], Director - MDJodry Notes/Report: Cholesterol, Total 159 100-199 mg/dL Triglycerides 85 0-149 mg/dL HDL Cholesterol 43 >39 mg/dL VLDL Cholesterol Juancho 16 5-40 mg/dL LDL Chol Calc ([facility]) 100 0-99 mg/dL LDL Calc Comment: Non-HDL Cholesterol 116 0-129 mg/dL TSH+Free [id number] Reviewed date:12/18/2024 02:02:59 PM Interpretation: Performing Lab:[facility] [place], [facility], [place], Phone - [phone], Director - MDJodry Notes/Report: TSH 1.220 0.450-4.500 uIU/mL T4,Free(Direct) 0.97 0.82-1.77 ng/dL Comp. Metabolic Panel (12)-[id number] Reviewed date:12/18/2024 02:02:59 PM Interpretation: Performing Lab:[facility], [address] [facility], [place], Phone - [phone], Director - MDJodry Notes/Report: Glucose 112 70-99 mg/dL BUN 14 6-24 mg/dL Creatinine 0.66 0.57-1.00 mg/dL eGFR 107 >59 mL/min/1.73 BUN/Creatinine Ratio 21 9-23 Sodium 144 134-144 mmol/L Potassium 4.4 3.5-5.2 mmol/L Chloride 102 96-106 mmol/L Calcium 9.2 8.7-10.2 mg/dL Protein, Total 6.6 6.0-8.5 g/dL Albumin 4.2 3.9-4.9 g/dL Globulin, Total 2.4 1.5-4.5 g/dL Bilirubin, Total 0.3 0.0-1.2 mg/dL Alkaline Phosphatase 91 44-121 IU/L AST (SGOT) 20 0-40 IU/L REASON FOR VISIT Labs Encounters Encounter [facility] Date [facility] [address] [address] 12/17/2024 Hong Patel Laboratory examinati on ordered as part of a complete physical examination Z00.00 ASSESSMENTS Encounter Date Diagnosis Assessment Notes Treatment Notes Treatment Clinical Notes Section Notes 12/17/2024 Laboratory examination ordered as part of a complete physical examination (ICD-10 - Z00.00) PLAN OF TREATMENT Next Appt Details Provider Name:Hong burkett, 10/07/2025 07:30:00 AM, [address] [place] [address], [phone],
--- OUTSIDE RECORDS SUMMARY | 2025-01-04 11:07 | XMS_ITS ---
Author Organization [facility] Address [address] [place] [address] Care Team Providers Care Ukrainian Folk Arts Instructor Name Role Phone Hong Patel Primary Care Provider REASON FOR VISIT 90 days MEDICATIONS Medication SIG (Take, Route, Frequency, Duration) Notes Start Date End Date Status Desvenlafaxine Succinate ER 50 MG 1 tablet Orally Once a day for 90 days Active Encounters Encounter Location Date Provider Diagnosis [facility] [address] [place] [address] 01/04/20 Hong Patel PLAN OF TREATMENT Medication Medication Name Sig Start Date Stop Date Notes Desvenlafaxine Succinate ER 50 MG 1 tabl et Orally Once a day for 90 days Next Appt Details Provider Name:Hong burkett, 10/07/2025 07:30:00 AM, [address] [place] [address], [phone],
--- OUTSIDE RECORDS SUMMARY | 2025-01-13 11:30 | XMS_ITS ---
Author Organization [facility] Address [address] [place] [address] Care Team Providers Care Auto Machinist Name Role Phone TedHong burkett Primary Care Provider ALLERGIES No Known Allergies REASON FOR VISIT [...] NOSTRIL EVERY DAY for 30 Active Nystatin-Triamcinolone 845683-0.1 UNIT/GM 1 application Externally Twice a day [...] 2 Interpretation Negative Section Notes: Works at [employer] SIGNS Blood pressure systolic 124 mm Hg 01/13/20 25 Blood pressure diastolic 74 mm Hg 025 Heart Rate 78 /min 01/13/2025 Height 62 in 01/13/2025 Weight 217.4 lbs 01/13/2025 BMI 39.76 kg/m2 01/13/2025 Encounters Encounter Location Date Provider Diagnosis [address] [address] 01/13/2025 Hong Patel LGSIL on Pap smear [...] system. There are likely to be multiple electro mechanical designer inaccuracies despite chart review. PLAN OF TREATMENT [...] system. There are likely to be multiple electro mechanical designer inaccuracies despite chart review. 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
--- OUTSIDE RECORDS SUMMARY | 2025-02-28 05:00 | XMS_ITS ---
Author Organization [facility] Address [address] [place] [address] Care Team Providers Care Green Feed Attendant Name Role Phone Tedmadelaine Hong Primary Care Provider REASON FOR VISIT (IN OFFICE), Sick Visit MEDICATIONS Medication SIG (Take, Route, Frequency, Duration) Notes Start Date End Date Status Desvenlafaxine Succinate ER 100 MG 1 tablet Orally Once a day for 90 Days Active CPAP Supplies . Use as directed . Daily Active Replacement CPAP Machine with accessories 12cm of H20 Intranasally Daily Active Cyclobenzaprine HCl 5 MG 1 tablet at bed time as needed Orally Once a day Active Pantoprazole Sodium 40 MG 1 tablet Orall y Once a day Active Nystatin-Triamcinolone 219799-7.1 UNIT/GM 1 application Externally Twice a day for 14 days 11/06/2022 Active Fluticasone Propionate 50 MCG/ACT SPRAY 1 SPRAY INTO EACH NOSTRIL EVERY DAY for 30 Active Albuterol Sulfate HFA Active Meloxicam 15 MG TAKE 1 TABLET BY MIGUELANGEL TH EVERY DAY FOR 90 DAYS for 90 Active Lisinopril 10 MG TAKE 1 TABLET BY MIGUELANGEL TH EVERY DAY for 90 Active Multivitamins Active Azithromycin 250 MG 2 tablets on the day, then 1 tablet daily for 4 days Orally Once a day for 5 day(s) 02/28/2025 Active Fluconazole 150 MG 1 tablet Orally once a day for 1 days 02/28/2025 Active Mucinex 600 MG 1 tablet as needed Orally every 12 hrs for 10 days 02/28/2025 Active SOCIAL HISTORY Tobacco Use: Social History Observation Description Date Details (start date - stop date) Never Smoker NA - NA Sex Assigned At : Social History Observation Description Sex Assigned At Unknown Tobacco Use/Smoking Question Answer Notes Are you a nonsmoker Section Notes: Works at a [employer] Blood pressure systolic 120 mm Hg 02/29/20 25 Blood pressure diastolic 74 mm Hg 025 Heart Rate 80 /min 02/28/2025 Height 62 in 02/28/2025 Weight 220 lbs 02/28/2025 BMI 40.23 kg/m2 02/28/2025 Encounters Encounter Location Date Provider Diagnosis [facility], [address] [place] [address] 02/28/2025 Hong Patel Acute URI J06.9 ; Chest congestion R09.89 ; Vaginal yeast infection B37.31 and Respiratory infection J98.8 ASSESSMENTS Encounter Date Diagnosis Assessment Notes Treatment Notes Treatment Clinical Notes Section Notes 02/28/2025 Acute URI (ICD-10 - J06.9) 02/28/2025 Chest congestion (ICD-10 - R09.89) 02/28/2025 Vaginal yeast infection (ICD-10 - B37.31) 02/28/2025 Respiratory infection (ICD-10 - J98.8) 02/28/2025 Other This chart has been transcribed by a computerized dictation system. There are likely to be multiple re etcher inaccuracies despite chart review. PLAN OF TREATMENT Medication Medication Name Sig Start Date Stop Date Notes Azithromycin 250 MG [address] day, then 1 tablet daily for 4 days Orally Once a day for 5 day(s) 02/28/2025 Fluconazole 150 MG 1 tablet Orally once a day for 1 days 0 02/28/2025 Mucinex 600 MG 1 tablet as needed O rally every 12 hrs for 10 days 02/28/2025 Treatment Notes Assessment Notes Other This chart has been transcribed by a computerized dictation system. There are likely to be multiple re etcher inaccuracies despite chart review. Next Appt Details Follow Up: as scheduled, Sofia son: Provider Name:Hong burkett, 10/07/2025 07:30:00 AM, [address] [place] [address], [phone], Progress Notes * Examination Category Sub-Category Detail Notes Category Not es General Examination GENERAL APPEARANCE: in no ac [place] distress, well developed, well nourished EYES: No pallor, sclera no n-icteric NOSE: Normal THROAT: clear NECK/THYROID: neck supple, full ra nge of motion, no cervical lymphadenopathy HEART: no murmurs, regular rate and rhythm, S1, S2 normal LUNGS: clear to auscultatio n bilaterally SKIN: no suspicious lesion s, warm and dry LYMPH NODES: no palpable adenopat hy PSYCH: alert, oriented, cog nitive function intact, mood/affect full range ORAL CAVITY: mucosa moist History and Physical Notes * HPI (History of Present Illness) Category Sub-Category Detail Notes Category Not es Symptom(s) 49-year-old fem dajuan patient with history of anxiety, depression, hypertension, obstructive sleep apnea, bronchial asthma, and GERD , is here complaining of cough, congestion, scanty phlegm production, but the past 3 days. Patient has history of sick contact at work. She denies fever, chills, or other constitutional symptoms. She usually develops vaginal yeast infection anytime she is on antibiotics.
--- OUTSIDE RECORDS SUMMARY | 2025-03-10 03:30 | XMS_ITS ---
[facility] Address [address] [place] [address] Care Team Providers Care Chef Saucier Name Role Phone Hong Patel Primary Care Provider [phone] RESULTS Component Value Reference Range Notes IGP, Aptima HPV- Reviewed date:03/15/2025 07:40:54 PM Interpretation: Performing Lab:[facility], [address], [address], [place], Phone - [phone], Director - [facility] Notes/Report: Clinical Information:[id number] No. of containers..01 ThinPrep Vial DIAGNOSIS: NEGATIVE FOR INTRAEPITHELIAL LESION OR MALIGNANCY. THIS SPECIMEN WAS RESCREENED PART OF OUR FORCER MAKER PROGRAM. Specimen adequacy: Satisfact ory for evaluation. No endocervical component is identified. Clinician provided ICD10: R8 7.612 Performed by: Rahul trotter, Cone Machine Operator (ASCP) QC reviewed by: Alberta Sanon, Cone Machine Operator (ASCP) . . Note: The Pap smear [...] FOR 90 DAYS for 90 Active Nystatin-Triamcinolone 253189-0.1 UNIT/GM 1 application Externally Twice a day [...] a nonsmoker Section Notes: Works at a [employer] FT VITAL SIGNS Blood pressure systolic 120 mm Hg 03/10/20 25 Blood pressure diastolic 80 mm Hg 025 Heart Rate 76 /min 03/10/2025 Height 62 in 03/10/2025 Weight 223.8 lbs 03/10/2025 BMI 40.93 kg/m2 03/10/2025 Encounters Encounter Location Date Provider Diagnosis Jorge [facility], [address] [place] [address] 03/10/2025 Hong Patel LGSIL on Pap smear o f cervix R87.612 ASSESSMENTS Encounter Date Diagnosis Assessment Notes Treatment Notes Treatment Clinical Notes Section Notes 03/10/2025 LGSIL on Pap smear of cervix (ICD-10 - R87.612) 03/10/2025 Other This chart has been transcribed by a computerized dictation system. There are likely to be multiple supervisor pairing and inspecting inaccuracies despite chart review. PLAN OF TREATMENT Treatment Notes Assessment Notes Other This chart has been transcribed by a computerized dictation system. There are likely to be multiple supervisor pairing and inspecting inaccuracies despite chart review. Next Appt Details Provider Name:Hong burkett, 10/07/2025 07:30:00 AM, [address] [place] [address], [phone], Progress Notes * Examination Category Sub-Category Detail [...]
--- OUTSIDE RECORDS SUMMARY | 2025-04-07 02:15 | XMS_ITS ---
[facility] Address [address] [place] [address] Care Team Providers Care District Traffic Chief Name Role Phone TedHong burkett Primary Care [...] BY MIGUELANGEL TH EVERY DAY Active Nystatin-Triamcinolone 356365-2.1 UNIT/GM 1 application Externally Twice a day [...] a nonsmoker Section Notes: Works at a [employer] FT VITAL SIGNS Blood pressure systolic 118 mm Hg 04/07/20 25 Blood pressure diastolic 72 mm Hg 025 Heart Rate 80 /min 04/07/2025 Height 62 in 04/07/2025 Weight 219.4 lbs 04/07/2025 BMI 40.12 kg/m2 04/07/2025 Encounters Encounter Location Date Provider Diagnosis Jorge [facility], [address] [address] 04/07/2025 Hong Patel LGSIL on Pap smear [...] system. There are likely to be multiple student driving instructor inaccuracies despite chart review. PLAN OF TREATMENT [...] system. There are likely to be multiple student driving instructor inaccuracies despite chart review. Next Appt Details Follow Up: 3 Months, Reason: Follow-up Provider Name:Hong burkett, 10/07/2025 07:30:00 AM, [address] [place] [address], [phone], Progress Notes * Examination Category Sub-Category Detail [...] of breath. Patient tells me that her ventilator specialist stopped her pantoprazole but she has still been taking it due to persistent GERD symptoms and a burning sensation in her throat. She does not feel that it is as effective anymore. I will start her on Voquezna 10mg daily. I provided her some samples of the medication to try.
--- OUTSIDE RECORDS SUMMARY | 2025-07-05 08:09 | XMS_ITS ---
Author Organization [facility] Address [address] [place] [address] Care Team Providers Care Crossbow Maker Name Role Phone Hong Patel Primary Care Provider REASON FOR VISIT Cpap Encounters Encounter Location Date Provider Diagnosis Jorge [facility] [address] [place] [address] 07/05/20 Hong Patel PLAN OF TREATMENT Next Appt Details Provider Name:Hong burkett, 10/07/2025 07:30:00 AM, [address] [place], [address],
--- OUTSIDE RECORDS SUMMARY | 2025-07-08 02:15 | XMS_ITS ---
Author Organization Jorge Fraser Address [address] [place] [address] Care Team Providers Care Ornament Stapler Name Role Phone TedmadelaineHong Primary Care Provider [...] FOR 90 DAYS for 90 Not-Taking Nystatin-Triamcinolone 155894-4.1 UNIT/GM 1 application Externally Twice a day [...] a nonsmoker Section Notes: Works at a [employer] Blood pressure systolic 110 mm Hg 07/08/20 25 Blood pressure diastolic 72 mm Hg 025 Heart Rate 84 /min 07/08/2025 Height 62 in 07/08/2025 Weight 210 lbs 07/08/2025 BMI 38.41 kg/m2 07/08/2025 Encounters Encounter Location Date Provider Diagnosis [email or web address] [address] 07/08/2025 Hong Patel Essential hypertensi on I10 [...] system. There are likely to be multiple community health promoter inaccuracies despite chart review. PLAN OF TREATMENT [...] system. There are likely to be multiple community health promoter inaccuracies despite chart review. Pending Test Test Name Order Date Urinalysis, [id number] 07/08/2025 Urine Culture, Routine-[id number] 07/08/2025 Next Appt Details Follow Up: 3 Months, Reason: Follow-up [facility] Dr. Patel Provider Name:Hong burkett, 10/07/2025 07:30:00 AM, [address] [place] [address], [phone], Progress Notes * Examination Category Sub-Category Detail [...] for a follow-up. Patient has joined [facility] [employer] and lost about 9 pounds since last [...]
--- OUTSIDE RECORDS SUMMARY | 2025-08-08 06:31 | XMS_ITS ---
Author Organization Jorge Fraser Address [address] [place] [address] Care Team Providers Care Assembly Member Name Role Phone Hong Patel Primary Care Provider REASON FOR VISIT Clinical for coverage Encounters Encounter Location Date Provider Diagnosis Jorge Fraser [address] [place] [address] 08/08/20 Hong Patel PLAN OF TREATMENT Next Appt Details Provider Name:Hong burkett, 10/07/2025 07:30:00 AM, [address] [place], [phone],
--- OUTSIDE RECORDS SUMMARY | 2025-10-07 02:30 | XMS_ITS ---
Author Organization Jorge Fraser Address [address] [place] [address] Care Team Providers Care Vortex Operator Name Role Phone Hong Patel Primary Care Provider [phone] REASON FOR VISIT (IN OFFICE), Follow Up MEDICATIONS Medication SIG (Take, Route, Frequency, Duration) Notes Start Date End Date Status Desvenlafaxine Succinate ER 100 MG TAKE 1 TABLET BY MOUTH EVERY DAY for 90 Active Cyclobenzaprine HCl 5 MG 1 tablet at bed time as needed Orally Once a day Not-Taking Voquezna 10 MG 1 tablet Orally Once a day for 30 day(s) Active Fluticasone Propionate 50 MCG/ACT SPRAY 1 SPRAY INTO EACH NOSTRIL EVERY DAY for 30 Active Meloxicam 15 MG TAKE 1 TABLET BY MIGUELANGEL TH EVERY DAY FOR 90 DAYS for 90 Not-Taking Replacement CPAP Machine with accessories 12cm of H20 Intranasally Daily Active Desvenlafaxine Succinate ER 100 MG 1 tablet Orally Once a day for 90 Days Active Lisinopril 10 MG TAKE 1 TABLET BY MIGUELANGEL TH EVERY DAY Active CPAP Supplies . Use as directed . Daily Active Multivitamins Active Albuterol Sulfate HFA Active SOCIAL HISTORY Tobacco Use: Social History Observation Description Date Details (start date - stop date) Never Smoker NA - NA Sex Assigned At : Social History Observation Description Sex Assigned At Unknown Tobacco Use/Smoking Question Answer Notes Are you a nonsmoker Section Notes: Works at a [employer] Encounters Encounter Location Date Provider Diagnosis Jorge Fraser [address] [place] [address] 10/07/2025 Hong Patel Essential hypertensi on I10 [...] E66.09) 10/07/2025 Anxiety (ICD-10 - F41.9) 10/07/2025 LGSIL on Pap smear o f cervix (ICD-10 - R87.612) 10/07/2025 Dysuria (ICD-10 - R30.0) 10/07/2025 Other This chart has been transcribed by a computerized dictation system. There are likely to be multiple certified vehicle fire investigator inaccuracies despite chart review. PLAN OF TREATMENT Medication Medication Name Sig Start Date Stop Date Notes Voquezna 10 MG 1 tablet Orally Once a day for 30 day(s) Replacement CPAP Machine wit h accessories 12cm of H20 Intranasally Daily Desvenlafaxine Succinate ER 100 MG 1 tablet Orally Once a day for 90 Days Lisinopril 10 MG TAKE 1 TABLET BY MIGUELANGEL TH EVERY DAY CPAP Supplies . Use as directed . Daily Albuterol Sulfate HFA Treatment Notes Assessment Notes Other This chart has been transcribed by a computerized dictation system. There are likely to be multiple certified vehicle fire investigator inaccuracies despite chart review. Next Appt Details Follow Up: 12/14/25, Reason: Annual physical exam with Dr. Patel Provider Name:Hong burkett, 10/07/2025 07:30:00 AM, [address] [place] [address], [phone], Progress Notes * Examination Category Sub-Category Detail Notes Category Not es General Examination GENERAL APPEARANCE: in no ac [place] distress, well developed, well nourished HEAD: normocephalic, [...]
--- OUTSIDE RECORDS SUMMARY | 2025-10-07 06:28 | XMS_ITS ---
Author Name [facility] Organization Unknown History of Medication Use Medication Directions Dispensed Refills Start Date End Date Stat Euflexxa 10 mg/mL (mw 2.4-3.6 million) intra-articular syringe Inject 10 mg by intra-articular route for 21 days. 07/07/2025 active lidocaine (PF) 100 mg/5 mL (2 %) injection syringe Take 3 mL by injection route. 04/04/2025 active triamcinolone acetonide 40 mg/mL suspension for injection Take 60 mg by injection route. 04/04/2025 active albuterol sulfate HFA 90 mcg/actuation aerosol inhaler TAKE 2 (INHALATION) EVERY 4-6 HOURS NEEDED FOR COUGH OR DYSPNEA 5 completed amoxicillin 875 mg tablet TAKE 1 TABLET EVERY 12 HOURS DAILY 5 completed azithromycin 250 mg tablet TAKE 2 TABLETS BY MOUTH TODAY, THEN TAKE 1 TABLET DAILY FOR 4 DAYS DIRECTED 5 completed benzonatate 200 mg capsule TAKE 1 CAPSULE BY MOUTH THREE TIMES A DAY FOR COUGH FOR 7 DAYS 5 completed bupropion HCl SR 100 mg tablet,12 hr sustained-release TAKE 1 TABLET BY MOUTH EVERY DAY IN THE MORNING FOR 30 DAYS 5 completed desvenlafaxine succinate ER 50 mg tablet,extended release 24 hr TAKE 1 TABLET BY MOUTH EVERY DAY FOR 90 DAYS 5 completed fluconazole 150 mg tablet TAKE 1 TABLET BY MOUTH EVERY DAY FOR 1 DAY 5 completed hydrocodone 5 mg-acetaminophen 325 mg tablet TAKE 1 TABLET EVERY 6 HOURS NEEDED FOR PAIN 5 completed paroxetine 20 mg tablet TAKE 1 TABLET BY MOUTH EVERY DAY IN THE MORNING FOR 90 DAYS 5 completed prednisone 20 mg tablet TAKE 2 TABLETS BY MOUTH EVERY MORNING FOR 4 DAYS 5 completed amoxicillin 875 mg-potassium clavulanate 125 mg tablet TAKE 1 TABLET BY MOUTH TWICE A DAY FOR 10 DAYS 4 completed amoxicillin 875 mg-potassium clavulanate 125 mg tablet TAKE 1 TABLET BY MOUTH TWICE A DAY FOR 10 DAYS 4 completed metronidazole 500 mg tablet TAKE 1 TABLET BY MOUTH TWICE A DAY FOR 7 DAYS 4 completed metronidazole 500 mg tablet TAKE 1 TABLET BY MOUTH TWICE A DAY FOR 7 DAYS 4 completed sucralfate 1 gram tablet TAKE 1 TABLET BY MOUTH TWICE A DAY 4 completed sucralfate 1 gram tablet TAKE 1 TABLET BY MOUTH TWICE A DAY 4 completed triamcinolone acetonide 40 mg/mL suspension for injection active lidocaine (PF) 100 mg/5 mL (2 %) injection syringe active albuterol sulfate HFA 90 mcg/actuation aerosol inhaler TAKE 2 (INHALATION) EVERY 4-6 HOURS NEEDED FOR COUGH OR DYSPNEA active clindamycin HCl 150 mg capsule TAKE 1 CAPSULE BY MOUTH EVERY 6 HOURS active desvenlafaxine succinate ER 100 mg tablet,extended release 24 hr TAKE 1 TABLET BY MOUTH EVERY DAY FOR 90 DAYS active lisinopril 10 mg tablet TAKE 1 TABLET BY MOUTH EVERY DAY active lisinopril 10 mg tablet TAKE 1 TABLET BY MOUTH EVERY DAY active meloxicam 15 mg tablet TAKE 1 TABLET BY MOUTH EVERY DAY FOR 90 DAYS active naltrexone 50 mg tablet TAKE 1 TABLET BY MOUTH EVERY DAY FOR 30 DAYS active pantoprazole 40 mg tablet,delayed release TAKE 1 TABLET BY MOUTH EVERY DAY active pantoprazole 40 mg tablet,delayed release TAKE 1 TABLET BY MOUTH EVERY DAY active paroxetine 20 mg tablet TAKE 1 TABLET BY MOUTH EVERY DAY IN THE MORNING FOR 90 DAYS active Paxlovid 300 mg (150 mg x 2)-100 mg tablets in a dose pack TAKE 3 TABLETS BY MOUTH TWICE A DAY FOR 5 DAYS active Problems Problem Status Onset Date Problem Type Date of Resoluti on Source Osteoarthritis of left knee joint active 2025-04-21 ProblemAct [facility] Pain of left calf active 2024-03-03 ProblemAct [facility] Osteoarthritis of knee active 2025-07-14 ProblemAct [facility] Pain of left knee joint active 2025-04-04 ProblemAct [facility] Encounters Encounter Type Encounter Reason Primary Diagnosis Location Date Ambulatory [facility] 09/02/2025 Ambulatory [facility] 07/29/2025 Ambulatory [facility] 07/28/2025 Ambulatory [facility] 07/28/2025 Ambulatory [facility] 07/14/2025 Ambulatory [facility] 07[facility]07/2025 Ambulatory [facility] 05/05/2025 Ambulatory [facility] 04/05/2025 Ambulatory [facility] 04/04/2025 Ambulatory [facility] 04/04/2025 Ambulatory [facility] 04/04/2025 Ambulatory [facility] 04/20/2024 Ambulatory [facility] 03/26/2024 Ambulatory [facility] 03[facility]25/2024 Ambulatory [facility] 03/04/2024 Ambulatory [facility] 03/03/2024 Ambulatory [facility] 03/03/2024 Ambulatory [facility] 03/03/2024 Ambulatory [facility] 03/03/2024 Ambulatory [facility] 02/26/2024 Ambulatory [facility] 02/26/2024 Ambulatory [facility] 02/26/2024
--- OUTSIDE RECORDS SUMMARY | 2025-10-07 06:28 | XMS_ITS | Clinical Summary ---
Author Organization [facility] Address [address] [place] [address] Care Team Providers Care Meat Slicer Name Role Phone Hong Patel MD Primary Care Provider [phone] Allergies No known active allergies Medications Medication Sig Dispensed Refills Start Date End Date Status docusate sodium (COLACE) 100 MG capsule Take 100 mg by mouth daily. 0 01/13/2021 Active fluconazole (DIFLUCAN) 150 MG tablet TAKE 1 TABLET BY MOUTH ONCE A WEEK X 2 WEEKS TAKE 1ST DOSE WITH SIGNS OF VAGINAL YEAST INFECTION 0 12/20/2020 Active venlafaxine (EFFEXOR-XR) 150 MG 24 hr capsule TAKE 1 CAPSULE BY MOUTH EVERY DAY WITH FOOD 0 01/07/2021 Active hydroCHLOROthiazide (HYDRODIURIL) tablet 12.5 mg Take 12.5 mg by mouth daily. 0 01/24/2021 Active Bystolic 10 MG tablet Take 10 mg by mouth daily. 0 12/21/2020 Active LORazepam (ATIVAN) 0.5 MG tablet 0 10/29/2021 Active Monovisc 88 MG/4ML SOSY 0 11/12/2021 Active Active Problems Problem Noted Date Diagnosed Date Arthritis of knee, left 03/15/2021 Family History Medical History Relation Name Comments Hypertension Father Cancer Mother Diabetes Mother Relation Name Status Comments Father Mother Social History Tobacco Use Types Packs/Day Years Used Date Smoking Tobacco: Never Assessed Sex and Gender Information Value Date Recorded Sex Assigned at Not on file Gender Identity Not on file Sexual Orientation Not on file Job Start Date Occupation Industry Not on file Not on file Not on file Last Filed Vital Signs Vital Sign Reading Time Taken Comments Blood Pressure - - Pulse - - Temperature - - Respiratory Rate - - Oxygen Saturation - - Inhaled Oxygen Concentration - - Weight 77.1 kg (170 lb) 08/17/2021 8:26 AM EDT Height 162.6 cm (5' 4 ) 08/17/2021 8:26 AM EDT Body Mass Index 29.18 08/17/2021 8:26 AM EDT Plan of Treatment Health Maintenance Due Date Last Done Comments Hepatitis B Vaccines (1 of 3 - 3-dose series) 1975 Hepatitis C Screening 1975 COVID-19 Vaccine (#1) 03/06/1976 Depression Screening 1987 BMI Counseling 1993 Preventative Health Evaluation 1993 DTap / Tdap / Td (1 - Tdap) 1994 Cervical Cancer Screening (P ap Smear) 1996 Colon Cancer Screening (Colonoscopy) 2020 Influenza Vaccine (#1) 2025 Breast Cancer Screening (Mammogram) 2025 Shingrix-Zoster Vaccine (1 of 2) 2025 Pneumococcal Vaccine Aged Out No long er eligible based on patient's age to complete this topic RSV Ped < 20 months Aged Out No longe r eligible based on patient's age to complete this topic Care Teams Meat Slicer Relationship Specialty Start Date End Date Hong Patel MD [address] [place] [address] [address] [place] [address] PCP - General Internal Medicine 03/02/21
--- OUTSIDE RECORDS SUMMARY | 2025-10-07 06:28 | XMS_ITS | Clinical Summary ---
Author Organization [facility] Address [address] [place] [address] Care Team Providers Care Asbestos Pipe Supervisor Name Role Phone Unavailable Primary Care Provider Unavailabl e Source Comments PLEASE NOTE, if this patient is a minor, it may be UNLAWFUL to discuss sensitive information that is contained in these records (such as FAMILY PLANNING, MENTAL HEALTH or SUBSTANCE ABUSE) with the minor patient's parent or other person without the patient's specific authorization.[facility] Immunizations Immunization Administration Dates Next Due Moderna COVID-19 Vaccine, re d cap blue label, 12+ Primary Series 04/23/2021,03/26/2021 Social History Tobacco Use Types Packs/Day Years Used Date Smoking Tobacco: Never Assessed Social Connections Answer Date Recorded Connectedness 0 08/12/2024 Financial Resource Strain Answer Date R ecorded Financial Resource Strain 0 2023 Stress Answer Date Recorded Stress 0 04/30/2024 Physical Activity Answer Date Recorded Physical Activity 0 04/30/2024 Food Insecurity Answer Date Recorded Food 0 08/26/2024 Transportation Needs Answer Date Record ed Transportation 0 04/30/2024 Housing Stability Answer Date Recorded Housing 0 04/30/2024 Safety and Environment Answer Date Delfin rded Safety 0 04/30/2024 Utilities Answer Date Recorded Utilities 0 04/30/2024 Employment Answer Date Recorded Stress 0 08/12/2024 Comments Unknown Sex and Gender Information Value Date Recorded Sex Assigned at Not on file Legal Sex Female 7:52 AM PDT Gender Identity Not on file Sexual Orientation Not on file Plan of Treatment Health Maintenance Due Date Last Done Comments Anxiety Screening 1975 Diabetes Screening 1975 HPV Screening (self-collect) 1975 HPV Screening 1975 Hepatitis C Screening 1975 Lipid Screening 1975 Pap + HPV 1975 Tobacco Screening 1975 HIV Screening 1990 Hypertension Screening (#1) 1993 Imm-DTaP/Tdap/Td (1 - Tdap) 1994 Imm-Hepatitis B (1 of 3 - 19 + 3-dose series) 1994 Cervical Cancer Screening 1996 Pap Smear 1996 Breast Cancer Screening (Mammogram) 2015 CT Colonography 2020 Colonoscopy 2020 Colorectal Cancer Screening 2020 FIT/gFOBT 2020 Fecal DNA 2020 Flexible Sigmoidoscopy 2020 Alcohol and Drug Screen 12/01/2024 Depression Annual Screen 12/01/2024 [id number] ( season) 2025 021, 03/26/2021 Imm-Influenza (#1) 2025 10/05/2020, 1 , 09/23/2018, Additional history exists Imm-Pneumococcal 50+ (1 of 1 - PCV) 2025 Imm-Zoster, Recombinant (1 of 2) 2025 Cervical Ablation/Cold-Knife Conization Discontinued Cervical Cryotherapy Discontinued Colposcopy Discontinued Excision/Leep Discontinued HPV Genotyping Discontinued Vaginal Pap Discontinued Vulvoscopy Discontinued
--- OUTSIDE RECORDS SUMMARY | 2025-10-07 06:29 | XMS_ITS | Patient Health Record ---
Author Organization [facility] Address [address] [place] [address] Care Team Providers [facility] Name Role Phone Hong Patel Primary Care Provider ALLERGIES No Known Allergies RESULTS Component Value Reference Range Notes IGP, Aptima HPV- Reviewed date:03/15/2025 07:40:54 PM Interpretation: Performing Lab:[facility], [address] [place] [address], Phone - [phone], Director - [facility] Notes/Report: Clinical Information:[id number] No. of containers..01 ThinPrep Vial DIAGNOSIS: EPITHELIAL CELL ABNORMALITY. LOW GRADE SQUAMOUS INTRAEPITHELIAL LESION (LSIL). Specimen adequacy: Satisfact ory for evaluation. No endocervical component is identified. Clinician provided ICD10: Z1 2.4 Performed by: Rahul trotter, Cloth Finishing Range Back Tender (ASCP) Electronically signed by: Juan Pablo Leyva MD, Pathologist . . Pathologist provided ICD10: R87.612 Note: The Pap smear is a screening [...] amplification test detects fourteen high-risk HPV types (16,18,31,33,35,39,45,51,52, 56,58,59,66,68) without differentiation. IGP, Aptima HPV- Reviewed date:03/15/2025 07:40:54 PM Interpretation: Performing Lab:[facility] [place], [address], [address], [place], Phone - [phone], Director - [facility] Notes/Report: Clinical Information:[id number] No. of containers..01 ThinPrep Vial DIAGNOSIS: NEGATIVE FOR INTRAEPITHELIAL LESION OR MALIGNANCY. THIS SPECIMEN WAS RESCREENED PART OF OUR DATACAP DEVELOPER PROGRAM. Specimen adequacy: Satisfact ory for evaluation. No endocervical component is identified. Clinician provided ICD10: R8 7.612 Performed by: Rahul trotter, Cloth Finishing Range Back Tender (ASCP) QC reviewed by: Alberta Sanon, Cloth Finishing Range Back Tender (ASC) . . Note: The Pap smear is [...] amplification test detects fourteen high-risk HPV types (16,18,31,33,35,39,45,51,52, 56,58,59,66,68) without differentiation. Urinalysis, Complete-[id number] Reviewed date:12/18/2024 02:02:59 PM Interpretation: Performing Lab:[facility], [address] [facility], Phone - [phone], [facility] Notes/Report: Specific [place] 1.027 1.005-1.030 pH 6.0 5.0-7.5 Urine-Color Yellow [...] seen/Few Yeast Trichomonas Comment CBC With Differential/Platel et-[id number] Reviewed date:12/18/2024 02:02:59 PM Interpretation: Performing Lab:[facility], [address] [place] [address], Phone - [phone], Director - Lucas Notes/Report: WBC 11.9 3.4-10.8 [...] Verifie d by microscopic examination. Vitamin D, 16-Vqavjmm-099005 Reviewed date:12/18/2024 02:02:59 PM Interpretation: Performing Lab:[facility], [address] [place] [address], [place], Phone - [phone], Director - [place] Notes/Report: Vitamin D, 25-Hydroxy 39.1 30.0-100.0 ng/mL Vitamin D deficiency has been defined by the [place] of Medicine and an Endocrine Society practice guideline as a level of serum 25-OH vitamin D less than 20 ng/mL (1,2). The Endocrine Society went on to further define vitamin D insufficiency as a level between 21 and 29 ng/mL (2). 1. IOM ([place] of Medicine). 2010. Dietary reference intakes for calcium and D. [place]: The National Academies Press. 2. Gus MF, Sloane GUERRA, Riley LEMUS, et al. Evaluation, treatment, and prevention of vitamin D deficiency: an Endocrine Society clinical practice guideline. JCEM. 2010; 96(7):1911-30. LP+Non-HDL Cholesterol-73367 5 Reviewed date:12/18/2024 02:02:59 PM Interpretation: Performing Lab:[facility], [facility], Phone - [phone], Director - MDJodry Notes/Report: Cholesterol, Total 159 100-199 mg/dL Triglycerides 85 0-149 mg/dL HDL Cholesterol 43 >39 mg/dL VLDL Cholesterol Juancho 16 5-40 mg/dL LDL Chol Calc ([facility]) 100 0-99 mg/dL LDL Calc Comment: Non-HDL Cholesterol 116 0-129 mg/dL TSH+Free [id number] Reviewed date:12/18/2024 02:02:59 PM Interpretation: Performing Lab:[facility], [facility], Phone - [phone], Director - MDJodry Notes/Report: TSH 1.220 0.450-4.500 uIU/mL T4,Free(Direct) 0.97 0.82-1.77 ng/dL Comp. Metabolic Panel (12)-3 [id number] Reviewed date:12/18/2024 02:02:59 PM Interpretation: Performing Lab:[facility], [address] [facility], Phone - [phone], Director - MDJodry Notes/Report: Glucose 112 70-99 [...] AST (SGOT) 20 0-40 IU/L REASON FOR REFERRAL No Information MEDICATIONS Medication SIG (Take, Route, Frequency, Duration) Notes Start Date End Date Status Albuterol Sulfate HFA Active Replacement CPAP Machine with accessories 12cm [...] day for 30 day(s) Active Multivitamins Active Fluticasone Propionate 50 MCG/ACT SPRAY 1 SPRAY INTO EACH NOSTRIL EVERY DAY for 30 Active Meloxicam 15 MG TAKE 1 TABLET BY MIGUELANGEL TH EVERY DAY FOR 90 DAYS for 90 Not-Taking IMMUNIZATIONS Vaccine Route Administration Date Status Comme nts Td (adult) Unknown 01/29/2007 Administered Pneumococcal IM Intramuscular 12/14/2014 Administered Influenza (Fluvirin) IM Intramuscular 09/23/2013 Administe red Influenza (Fluvirin) IM Intramuscular 09/15/2014 Administe red Influenza (Fluvirin) IM Intramuscular 09/12/2015 Administe red Influenza (Fluvirin) IM Intramuscular 09/25/2016 Administe red Influenza (Flucelvax Quad) IM Intramuscular 09/15/2017 Adm inistered *Influenza (Fluarix Quad) IM Intramuscular 09/23/2018 Admi nistered *Influenza (Fluarix Quad) IM Intramuscular 09/29/2019 Admi nistered *Influenza (Fluarix Quad) IM Intramuscular 10/05/2020 Admi nistered *Influenza (Fluarix Quad) IM Intramuscular 11/28/2021 Admi nistered *Influenza (Fluarix Quad) IM Intramuscular 11/06/2022 Admi nistered *Influenza (Fluarix Quad) IM Intramuscular 09/10/2023 Admi nistered *Influenza (Fluarix Quad) IM Intramuscular 08/27/2024 Admi nistered SOCIAL HISTORY Tobacco Use: Social History Observation Description Date Details (start date - stop date) Never Smoker NA - NA Sex Assigned At : Social History Observation Description Sex Assigned At Unknown Tobacco Use/Smoking Question Answer Notes Are you a nonsmoker Section Notes: 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 PROBLEMS Problem Type ICD Code Onset Dates Problem Status W/U Status Risk SNOMED Code Notes Problem Depression (F32.9) Active confirmed 354 01390 Problem Atrophic vaginitis (N95.2) Active confirmed 90542510 Problem Anxiety (F41.9) Active confirmed 641900 02 Problem Plantar fasciitis (M72.2) Active confirmed 962727378 Problem PTSD (post-traumatic stress disorder) (F43.10) Active confirmed 94454329 Problem ETOH abuse (F10.10) Active confirmed 15 591760 Problem Other obesity due to excess calories (E66.09) Active confirmed 741465098 Problem Cutaneous candidiasis (B37.2) Active confirmed 73985204 Problem Obstructive sleep apnea (G47.33) Active confirmed 54492895 Problem Essential hypertension (I10) Active confirmed 43443469 Problem Gastroesophageal reflux disease without esophagitis (K21.9) Active confirmed Gastroesophagea l reflux disease without esophagitis (062632164) Problem Primary osteoarthritis involving multiple joints (M15.0) Active confirmed 003130563 Problem Mild intermittent asthma without complication (J45.20) Active confirmed Mild intermitte nt asthma (032426011) Problem Chest pain, unspecified chest pain type (R07.9) Active confirmed 01173340 Problem Arthralgia of right temporomandibular joint (M26.621) Active confirmed 55503030 Problem Current moderate episode of major depressive disorder without prior episode (F32.1) Active confirmed 24537405 Problem Adrenal nodule (E27.8) Active confirmed 339374749 Problem Solitary thyroid nodule (E04.1) Active confirmed 729689635 VITAL SIGNS Heart Rate 84 /min 07/08/2025 Blood pressure diastolic 72 mm Hg 07/08/2025 Height 62 in 07/08/2025 Blood pressure systolic 110 mm Hg 07/08/2025 Weight 210 lbs 07/08/2025 BMI 38.41 kg/m2 07/08/2025 Encounters Encounter Location Date Provider Diagnosis [address] [address] 11/25/2024 Hong albertina [address] [address] 11/25/2024 Hong albertina [address] [address] 11/25/2024 Hong Patel COVID-19 [address] [address] 12/13/2024 Hong Patel Annual physical exam Z00.00 ; Current moderate episode of major depressive disorder without prior episode F32.1 and Acute URI J06.[address] [address] 12/17/2024 Hong Patel Encounter for screen ing for malignant neoplasm of cervix Z12.4 and Encounter for screening mammogram for malignant neoplasm of breast Z12.[address] [address] 12/17/2024 Hong Patel Laboratory examinati on ordered as part of a complete physical examination Z00.[address] [address] 01/04/2025 Hong albertina [address] [address] 01/13/2025 Hong Patel LGSIL on Pap smear [...] to excess calories E66.09 and Anxiety F41.[address] [address] 02/28/2025 Hong Patel Acute URI J06.9 ; Ch est congestion R09.89 ; Vaginal yeast infection B37.31 and Respiratory infection J98.[address] [address] 03/10/2025 Hong Patel LGSIL on Pap smear o f cervix R87.[address] [address] 04/07/2025 Hong Patel LGSIL on Pap smear [...] to excess calories E66.09 and Anxiety F41.[address] [address] 07/05/2025 Hong albertina [address] [address] 07/08/2025 Hong Patel Essential hypertensi on I10 [...] smear of cervix R87.612 and Dysuria R30.0 [address] [place] [address] 08/08/2025 Hong albertina [facility] [place], [address] [place] [address] 10/07/2025 Hong Patel Essential hypertensi on I10 [...] Notes 10/07/2025 Essential hypertension (ICD-10 - I10) 07/08/2025 Essential hypertension (ICD-10 - I10) 02/28/2025 Acute URI (ICD-10 - J06.9) 02/28/2025 Chest congestion (ICD-10 - R09.89) 04/07/2025 LGSIL on Pap smear o f cervix (ICD-10 - R87.612) 03/10/2025 LGSIL on Pap smear o f cervix (ICD-10 - R87.612) 01/13/2025 LGSIL on Pap smear o f cervix (ICD-10 - R87.612) 11/25/2024 COVID-19 (ICD-10 - U07.1) 12/13/2024 Current moderate episode of major depressive disorder without prior episode (ICD-10 - F32.1) 12/13/2024 Annual physical exam (ICD-10 - Z00.00) 12/17/2024 Encounter for screening mammogram for malignant neoplasm of breast (ICD-10 - Z12.31) 12/17/2024 Encounter for screening for malignant neoplasm of cervix (ICD-10 - Z12.4) 02/28/2025 Vaginal yeast infection (ICD-10 - B37.31) 04/07/2025 Essential hypertension (ICD-10 - I10) 07/08/2025 ETOH abuse (ICD-10 - F10.10) 12/17/2024 Laboratory examination ordered as part of a complete physical examination (ICD-10 - Z00.00) 01/13/2025 Essential hypertension (ICD-10 - I10) 12/13/2024 Acute URI (ICD-10 - J06.9) 10/07/2025 ETOH abuse (ICD-10 - F10.10) 10/07/2025 Primary osteoarthritis involving multiple joints (ICD-10 - M15.0) 07/08/2025 Primary osteoarthritis involving multiple joints (ICD-10 - M15.0) 02/28/2025 Respiratory infectio n (ICD-10 - J98.8) 04/07/2025 ETOH abuse (ICD-10 - F10.10) 01/13/2025 Current moderate episode of major depressive disorder without prior episode (ICD-10 - F32.1) 01/13/2025 ETOH abuse (ICD-10 - F10.10) 10/07/2025 Mild intermittent asthma without complication (ICD-10 - J45.20) 10/07/2025 Current moderate episode of major depressive disorder without prior episode (ICD-10 - F32.1) 07/08/2025 Mild intermittent asthma without complication (ICD-10 - J45.20) 07/08/2025 Current moderate episode of major depressive disorder without prior episode (ICD-10 - F32.1) 04/07/2025 Current moderate episode of major depressive disorder without prior episode (ICD-10 - F32.1) 04/07/2025 Primary osteoarthritis involving multiple joints (ICD-10 - M15.0) 01/13/2025 Primary osteoarthritis involving multiple joints (ICD-10 - M15.0) 04/07/2025 Mild intermittent asthma without complication (ICD-10 - J45.20) 01/13/2025 Mild intermittent asthma without complication (ICD-10 - J45.20) 10/07/2025 Gastroesophageal reflux disease without esophagitis (ICD-10 - K21.9) 07/08/2025 Gastroesophageal reflux disease without esophagitis (ICD-10 - K21.9) 10/07/2025 Arthralgia of right temporomandibular joint (ICD-10 - M26.621) 01/13/2025 Gastroesophageal reflux disease without esophagitis (ICD-10 - K21.9) 07/08/2025 Arthralgia of right temporomandibular joint (ICD-10 - M26.621) 04/07/2025 Gastroesophageal reflux disease without esophagitis (ICD-10 - K21.9) 01/13/2025 Arthralgia of right temporomandibular joint (ICD-10 - M26.621) 07/08/2025 Atrophic vaginitis (ICD-10 - N95.2) 04/07/2025 Arthralgia of right temporomandibular joint (ICD-10 - M26.621) 10/07/2025 Atrophic vaginitis (ICD-10 - N95.2) 10/07/2025 Obstructive sleep apnea (ICD-10 - G47.33) 07/08/2025 Obstructive sleep apnea (ICD-10 - G47.33) 04/07/2025 Atrophic vaginitis (ICD-10 - N95.2) 01/13/2025 Atrophic vaginitis (ICD-10 - N95.2) 04/07/2025 Obstructive sleep apnea (ICD-10 - G47.33) 01/13/2025 Obstructive sleep apnea (ICD-10 - G47.33) 07/08/2025 Other obesity due to excess calories (ICD-10 - E66.09) 10/07/2025 Other obesity due to excess calories (ICD-10 - E66.09) 04/07/2025 Other obesity due to excess calories (ICD-10 - E66.09) 01/13/2025 Other obesity due to excess calories (ICD-10 - E66.09) Discussed healthy eating habits. Patient seeing weight management PA and has therapist to discuss binge eating 07/08/2025 Anxiety (ICD-10 - F41.9) 10/07/2025 Anxiety (ICD-10 - F41.9) 04/07/2025 Anxiety (ICD-10 - F41.9) 01/13/2025 Anxiety (ICD-10 - F41.9) 07/08/2025 LGSIL on Pap smear o f cervix (ICD-10 - R87.612) 10/07/2025 LGSIL on Pap smear o f cervix (ICD-10 - R87.612) 07/08/2025 Dysuria (ICD-10 - R30.0) 10/07/2025 Dysuria (ICD-10 - R30.0) 12/13/2024 Other This chart has been transcribed by a computerized dictation system. There are likely to be multiple finance administrator inaccuracies despite chart review. 01/13/2025 Other This chart has been transcribed by a computerized dictation system. There are likely to be multiple finance administrator inaccuracies despite chart review. 04/07/2025 Other This chart has been transcribed by a computerized dictation system. There are likely to be multiple finance administrator inaccuracies despite chart review. 07/08/2025 Other This chart has been transcribed by a computerized dictation system. There are likely to be multiple finance administrator inaccuracies despite chart review. 10/07/2025 Other This chart has been transcribed by a computerized dictation system. There are likely to be multiple finance administrator inaccuracies despite chart review. 12/17/2024 Other This chart has been transcribed by a computerized dictation system. There are likely to be multiple finance administrator inaccuracies despite chart review. 03/10/2025 Other This chart has been transcribed by a computerized dictation system. There are likely to be multiple finance administrator inaccuracies despite chart review. 02/28/2025 Other This chart has been transcribed by a computerized dictation system. There are likely to be multiple finance administrator inaccuracies despite chart review. 11/25/2024 Other This chart has been transcribed by a computerized dictation system. There are likely to be multiple finance administrator inaccuracies despite chart review. PLAN OF TREATMENT Pending Test Test Name Order Date MRI : Knee, right 12/14/2014 X ray : Knee, right 09/15/2014 X ray : Hand, left 07/18/2016 X ray : Wrist, left 07/18/2016 EMG/NCV ARMS 08/20/2016 HPV, high+low-risk 11/22/2020 HPV, high+low-risk 09/28/2018 HPV, high+low-risk 12/09/2022 HPV, high+low-risk 11/28/2021 HPV, high+low-risk 09/29/2019 MAMMOGRAM, SCREENING 09/29/2019 MAMMOGRAM, SCREENING 11/28/2021 MAMMOGRAM, SCREENING 12/09/2022 MAMMOGRAM, SCREENING 06/26/2016 MAMMOGRAM, SCREENING 09/24/2017 MAMMOGRAM, SCREENING 03/25/2013 MAMMOGRAM, SCREENING 12/16/2023 MAMMOGRAM, SCREENING 12/17/2024 MAMMOGRAM, SCREENING 09/28/2018 Ultrasound : Doppler : Veins Leg Right 0 04/21/2015 Ultrasound : Pelvic Non/OB 07/26/2021 Ultrasound : Thyroid Sonography B-Scan 0 07/26/2021 Ultrasound : Transvaginal 07/26/2021 GUAIAC, SINGLE SPECIMEN 12/17/2024 GUAIAC, SINGLE SPECIMEN 12/16/2023 GUAIAC, SINGLE SPECIMEN 09/24/2017 GUAIAC, SINGLE SPECIMEN 06/26/2016 GUAIAC, SINGLE SPECIMEN 09/28/2018 GUAIAC, SINGLE SPECIMEN 11/22/2020 GUAIAC, SINGLE SPECIMEN 12/09/2022 GUAIAC, SINGLE SPECIMEN 11/28/2021 GUAIAC, SINGLE SPECIMEN 09/29/2019 *EKG 12/06/2015 *EKG 11/12/2012 *EKG 12/08/2012 *SPIROMETRY 11/12/2012 Thin Prep 02/27/2015 Thin Prep 02/24/2014 Thin Prep 03/25/2013 CPAP Titration Study 02/17/2013 EMG 07/31/2015 Drain/Inject Joint/Bursa (MEDIUM) 2018 HEMOGLOBIN A1C 06/24/2016 HEMOGLOBIN A1C 01/12/2015 HEMOGLOBIN A1C 08/12/2017 COMPREHENSIVE METABOLIC PANL 08/12/2017 COMPREHENSIVE METABOLIC PANL 05/03/2016 COMPREHENSIVE METABOLIC PANL 01/12/2015 COMPREHENSIVE METABOLIC PANL 07/10/2020 COMPREHENSIVE METABOLIC PANL 07/26/2021 LIPID PANEL 07/10/2020 LIPID PANEL 08/12/2017 LIPID PANEL 07/26/2021 LIPID PANEL 01/12/2015 LIPID PANEL 05/03/2016 THYROID PANEL 01/12/2015 THYROID PANEL 05/03/2016 THYROID PANEL 07/10/2020 THYROID PANEL 08/12/2017 THYROID PANEL 07/26/2021 FSH 07/26/2021 FSH 07/10/2020 LH 07/10/2020 LH 07/26/2021 URINARY MICROALBUMIN 01/12/2015 25OH VITAMIN D 07/10/2020 25OH VITAMIN D 05/03/2016 25OH VITAMIN D 08/12/2017 25OH VITAMIN D 01/12/2015 25OH VITAMIN D 07/26/2021 COMPLETE CBC WITH DIFF 01/12/2015 COMPLETE CBC WITH DIFF 08/12/2017 COMPLETE CBC WITH DIFF 05/03/2016 COMPLETE CBC WITH DIFF 07/10/2020 COMPLETE CBC WITH DIFF 07/26/2021 URINE DIPSTICK 01/12/2015 COMPLETE URINALYSIS 05/03/2016 COMPLETE URINALYSIS 07/10/2020 COMPLETE URINALYSIS 08/12/2017 COMPLETE URINALYSIS 07/26/2021 CYTOPATHOLOGY (SHIPPING WEIGHER) 12/16/2023 CYTOPATHOLOGY (SHIPPING WEIGHER) 12/09/2022 CYTOPATHOLOGY (SHIPPING WEIGHER) 11/28/2021 CT Head/Brain W/O Contrast 02/05/2022 25OH VITAMIN D 11/06/2022 CBC (COMPLETE BLOOD COUNT) WITH DIFF 05/2022 CHLAMYDIA GC AMP PROBE, URINE 04/17/2022 COMPREHENSIVE METABOLIC PANEL 11/06/2022 HPV, HIGH RISK 12/16/2023 LIPID PANEL 11/06/2022 MICROALBUMIN, URINE 11/06/2022 THYROID PANEL (TSH, FT4) 11/06/2022 URINALYSIS, COMPLETE 11/06/2022 Urinalysis, Complete-[id number] 07/08/2025 Urine Culture, Routine-[id number] 07/08/2025 Next Appt Details Provider Name:Hong Alexsandra burkett, 10/07/2025 07:30:00 AM, [address] [place] [address], [phone], Insurance Providers Payer Name Payer Address Payer Phone Subscriber Number Group Number Insured Name Patient Relationship to Insured Coverage Start Date Coverage End Date ORLANDO HASKINS([facility] [address] [place] [address] [id number] Nora Wayne Self - patient is the insured MEDICAL (GENERAL) HISTORY Medical History History ICD Code Essential hypertension I10 Anxiety F41.9 Depression F32.9 Obstructive sleep apnea G47.33 Mild intermittent asthma without complic ation J45.20 Gastroesophageal reflux disease without esophagitis K21.9 Plantar fasciitis M72.2 PTSD (post-traumatic stress disorder) F4 3.10 Atrophic vaginitis N95.2 Adrenal nodule E27.8 Solitary thyroid nodule E04.1 Current moderate episode of major depres sive disorder without prior episode F32.1 Arthralgia of right temporomandibular abimbola int M26.621 Other obesity due to excess calories E66 .09 ETOH abuse F10.10 Primary osteoarthritis involving multipl e joints M15.0 Surgical History Surgery Date(Month/Year) X2 1997 & 1999 Lap. 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
--- OUTSIDE RECORDS SUMMARY | 2025-10-07 06:29 | XMS_ITS | Patient Health Record ---
Author Organization [facility] Address [address] [place] [address] Care Team Providers Care Lead Mason Tender Name Role Phone Hong Patel MD Primary Care Provider Unavaila Marcos Rojas Unavailable [phone] Reason For Referral No Information Medications Medication SIG (Take, Route, Fr equency, Duration) Notes Start Date End Date Status Effexor 75 MG 1 tablet with food O rally Once a day; Duration: 30 day(s) Active Bystolic 5 MG 1 tablet Orally Once a day; Duration: 30 day(s) Active Wal-Mucil Active Multivitamin Active Claritin 10 MG 1 tablet Orally Once a day; Duration: 30 day(s) Active Social History Tobacco Use: Social History Observation Description Date Details (start date - stop date) Never Smoker NA - NA Tobacco Use/Smoking Question Answer Notes Are you a: nonsmoker Additional Findings: Tobacco Non-User Aggressive non-smoker Alcohol Screen Question Answer Notes Did you have a drink containing alcohol in the p ast year? Yes Points 0 Interpretation Negative Problems Problem Type SNOMED Code ICD Code Onset Dates Problem Status W/U Status Risk Notes Problem Plantar fascial fibromatosis (64553355) Plantar fascial fibromatosis (M72.2) Active confirmed Plan Of Treatment No Information Insurance Providers Payer Name Payer Address Payer Phone Subscriber Number Group Number Insured Name Patient Relationship to Insured Coverage Start Date Coverage End Date [employer] ([facility]) [address] [place] [address] [id number] Tone, Nora Self - patient is the insured Medical (General) History Medical History History ICD Code Anxiety Arthritis asthma Back,Hip,and Knee pain Depression Headaches/Migraines High blood pressure Lyme disease Sinus conditions Warts Chicken pox Surgical History Surgery Date(Month/Year) Laphole Adhesion Rem C- section 05/10/1998 02/06/00 D+C 1996 Uterine ablation
[2025-10-13 12:10] VITALS: BMI 38.1
--- NOTE | 2025-10-14 08:35 | HO.ANESPROP2 ---
Documented by User: Roz Luna NP 10/14/25 08:37 HPI - Anesthesia Eval Consult details Narrative: 50 yr old female for upper endo [facility] *Prescribed GLP-1 on 10/13/25 JAYDON: on CPAP PMFSH Active Problems Active Problems: All Active Problems (Updated 10/13/25 @ 12:15 by Cecy Castillo, RN) Binge eating (Acute) Alcohol dependence (Acute) Depressive disorder (Acute) Postgastrectomy malabsorption (Acute) Overweight (Acute) BMI 31.0-31.9,adult (Acute) BMI 33.0-33.9,adult (Acute) BMI 36.0-36.9,adult (Acute) Edema (Acute) Abdominal pain (Acute) Thrush (Acute) Intestinal malabsorption (Acute) Abdominal pain (Acute) BMI 39.0-39.9,adult (Acute) Ground glass opacity present on imaging of lung (Acute) S/P repair of paraesophageal hernia (Acute) S/P laparoscopic sleeve gastrectomy (Acute) Congenital intra-abdominal adhesions (Acute) Constipation (Acute) Encounter for pre-operative examination (Acute) History of anxiety (Acute) Obesity (Acute) Liver fibrosis (Acute) Steatosis, liver (Acute) Diaphragmatic hernia (Acute) Positive H. pylori test (Acute) Degenerative joint disease (Acute) GERD (gastroesophageal reflux disease) (Acute) Asthma (Acute) Depression (Acute) Sleep apnea with use of continuous positive airway pressure (CPAP) (Acute) Hypertension (Acute) Morbid obesity (Acute) Past Medical History Medical History Obesity Liver fibrosis Steatosis, liver Intra-abdominal adhesions Diaphragmatic hernia Arthritis Back pain History of anxiety Positive H. pylori test Degenerative joint disease GERD (gastroesophageal reflux disease) Asthma Depression Sleep apnea with use of continuous positive airway pressure (CPAP) Hypertension Family History Family History Mother Asthma Hypertension Diabetes HX: breast cancer Father No problems noted. Sister No problems noted. Daughter No problems noted. Son Asthma Surgical History Surgical History Hx of tubal ligation Hx of bariatric surgery (12/2020) History of endometrial ablation H/O umbilical hernia repair Morbid obesity Hx of section Hx of cholecystectomy Social History Social History Household Members: Family Are you a primary child care director to a significant other at home: No Do you presently have visiting nurse or other home services: No Alcohol intake: current Alcohol intake frequency: 0-2 drinks per day Patient Tobacco Use Status: Never used Tobacco Use of substances other than those prescribed or required for medical reasons: Yes Substance Use Type Other:: rare edible Are you DNR?: No Advance Directives: No Advance Directives Information Provided: Yes service: No Current occupational status: employed Meds Allergies Allergy/AdvReac Type Severity Reaction Status Date / Time No Known Allergies Allergy Verified 10/17/25 09:01 Home Medications ?Medication ?Instructions ?Recorded ?Confirmed ?Last Taken ?Type loratadine 10 mg capsule (Claritin 10 mg PO DAILY 10/04/20 10/13/25 12/07/20 05:00 History Liqui-Gel) desvenlafaxine succinate 100 mg 100 mg PO DAILY 10/13/25 10/13/25 Unknown History tablet,extended release 24 hr lisinopril 10 mg tablet 10 mg PO DAILY 10/13/25 10/13/25 Unknown History cholecalciferol (vitamin D3) 125 125 mcg PO DAILY 10/17/25 10/17/25 Unknown History mcg (5,000 unit) tablet (Vitamin D3) Exam Height,Weight and Vital Signs: Height 5 ft 2 in Weight 94.619 kg Documented by User: Gabrielle Castelan MD 10/17/25 09:03 [facility] Past Medical History Medical History Obesity Liver fibrosis Steatosis, liver Intra-abdominal adhesions Diaphragmatic hernia Arthritis Back pain History of anxiety Positive H. pylori test Degenerative joint disease GERD (gastroesophageal reflux disease) Asthma Depression Sleep apnea with use of continuous positive airway pressure (CPAP) Hypertension Family History Family History Mother Asthma Hypertension Diabetes HX: breast cancer Father No problems noted. Sister No problems noted. Daughter No problems noted. Son Asthma Surgical History Surgical History Hx of tubal ligation Hx of bariatric surgery (12/2020) History of endometrial ablation H/O umbilical hernia repair Morbid obesity Hx of section Hx of cholecystectomy History of Problems with Anesthesia: No Social History Social History Household Members: Family Are you a primary child care director to a significant other at home: No Do you presently have visiting nurse or other home services: No Alcohol intake: current Alcohol intake frequency: 0-2 drinks per day Patient Tobacco Use Status: Never used Tobacco Use of substances other than those prescribed or required for medical reasons: Yes Substance Use Type Other:: rare edible Are you DNR?: No Advance Directives: No Advance Directives Information Provided: Yes service: No Current occupational status: employed Meds Allergies Allergy/AdvReac Type Severity Reaction Status Date / Time No Known Allergies Allergy Verified 10/17/25 09:01 Home Medications ?Medication ?Instructions ?Recorded ?Confirmed ?Last Taken ?Type loratadine 10 mg capsule (Claritin 10 mg PO DAILY 10/04/20 10/13/25 12/07/20 05:00 History Liqui-Gel) desvenlafaxine succinate 100 mg 100 mg PO DAILY 10/13/25 10/13/25 Unknown History tablet,extended release 24 hr lisinopril 10 mg tablet 10 mg PO DAILY 10/13/25 10/13/25 Unknown History cholecalciferol (vitamin D3) 125 125 mcg PO DAILY 10/17/25 10/17/25 Unknown History mcg (5,000 unit) tablet (Vitamin D3) Exam Airway Mallampati Class: III TM Dist: >3cm Neck ROM: Full Loose/Missing/Broken Teeth: No Heart: RRR Lungs: CTA Assessment and Plan Assessment Anesthesia Assessment: Anesthesia Plan Discussed and Chart Reviewed Final Anesthetic Review History of Problems with Anesthesia: No NPO: Yes ASA Class: II Final Preanesthetic Review: Meds/Allgs Chart Reviewed, Consent Obtained/Reviewed and Anes Risks/Benef Reviewed Patient Risk: Low Procedure Risk: Intermediate Anesthetic Plan Anesthetic Plan: MAC: Disposition: Standard PACU
[2025-10-17 08:38] VITALS: BMI 38.6
[2025-10-17 08:51] VITALS: BP 134/63; PULSE 71; RESP 15; TEMP 37.1; O2SAT 96
[2025-10-17] MEDS: Lactated Ringers 1,000 ML 80 ML IVCONT (08:59)
--- NOTE | 2025-10-17 09:35 | P.HPSUR_ITS ---
Pre-Procedural Eval Section A - 24 Hr Update-Section A only Date of Service: 10/17/25 The patient is an INPATIENT: No The patient has been examined within 24 hours of the surgical procedure. The History & Physical has been completed within 30 days and I have reviewed it.: No Section B - Complete if H&P > 30 days Chief Complaint: gerd Relevant Family History (Specify if Yes): No Relevant Social History: None Present Medications: None Medical History: No relevant PMH History of Previous Operations: Relevant previous surgery/procedure and date(s) (Laparoscopic sleeve gastrectomy) Allergies: Allergies Allergy/AdvReac Type Severity Reaction Status Date / Time No Known Allergies Allergy Verified 10/17/25 09:01 Review of Systems Sugical H&P ROS: Negative: Constitution, Cardiovascular, Respiratory, Neurologi lashonda, Psychiatric, Hem-Onc, Allergic/Immunologic, Gastrointestinal, Genitourinary, Musculoskeletal, Integumentary, Endocrine and Eyes/Ears/Nose/Throat Exam Surgical H&P Exam: Normal: HEENT, Normal: Heart, Normal: Lungs, Normal: Extremities, Normal: Abdomen, Normal: Skin and Normal: Neurological Plan Diagnosis/Plan: Unchanged (EGD with [facility] to assess etiology of GERD. Risks of bleeding and perforation were discussed with the patient and she is in agreement with the plan.) I have reviewed the history and physical and performed a pertinent physical examination on my patient. No changes have occurred unless specified. Time Spent With Patient Time: Total time managing care of this patient today ____ minutes.
--- NOTE | 2025-10-17 09:41 | P.BOP_ITS ---
Brief Operative Note Date of Service: 10/17/25 Pre-op diagnosis: GERD Post-op diagnosis: same Procedure: PROCEDURE DATE: 10/17/2025 PREOPERATIVE DIAGNOSIS: GERD POSTOPERATIVE DIAGNOSIS: ?Same as above. 1) small hiatal hernia, PROCEDURE: Bphotmvx-vwvxaf-qyipykxlfcgh with biopsies and Duckworth procedure Surgeon: ?Mike Brock M.D.. Ph.D. Museum Informatics Specialist: None ? Anesthesia: IV sedation Estimated blood loss: ?Minimal FINDINGS AND PROCEDURE: ? OPERATIVE INDICATIONS: ?The patient is a 50 year old female who had a sleeve gastrectomy by me and had history of GERD. Based on this information I recommended an upper endoscopy with the Duckworth procedure to evaluate the patient's symptoms and assess her GERD. Risks and complications of the surgery were discussed with the patient in advance particularly the possibility of perforation or bleeding that may require surgical intervention. The patient understood the risks and was in agreement with the plan. ? PROCEDURE: After informed consent was obtained by the patient, the patient was ?transferred to the Operating Room and was placed in the supine position.? After successful induction of IV sedation, a mouth block was inserted and the patient was placed in the left lateral decubitus position. An upper endoscopy was performed next, the oropharynx and esophagus appeared within the normal limits. There was a small 2cm hiatal hernia. The z-line was smooth. Two biopsies were obtained from the distal esophagus 2-3 cm proximal to the GE junction and two additional biopsies from the GE junction. The sleeve was entered and it appeared to be of normal size. There was no gastritis. The sleeve's caliber was even throughout. There was no stricture or ulcer. A biopsy was obtained from the distal antrum. No significant bleeding was noted from any of the biopsy sites. The scope was then advanced into the duodenum which appeared to be normal as well. Retroflexion of the scope was possible and confirmed the presence of a small diaphragmatic hernia. At that point the duodenum ?and the stomach were decompressed and the scope was withdrawn to the GE junction. We measured 6 cm proximal from the GEJ and that was about 28cm from incisors. The scope was withdrawn from the mouth and the Duckworth device was introduced to 28cm from incisors. The scope was re-introduced to confirm that the probe was in the esophagus and it was. The scope was withdrawn from the venita ent's mouth. Suction was connected to the device and was kept on for 45sec. At that point the device was deployed without difficulty and the remaining of the device was withdrawn from the patient's mouth without difficulty. The endoscope was re-introduced and I confirmed that the device was properly deployed in the esophagus at the intended location. At that point the scope was withdrawn from the patient's mouth and the procedure was ended. The patient extubated and was transferred in stable condition to the Recovery Room for further care. I was present and performed all steps of the procedure. There were no residents to assist with this case. Mike Brock M.D., Ph.D. Surgeon: Alirio Brock MD Anesthesia: MAC Was an Museum Informatics Specialist used for this Procedure?: No Estimated blood loss (mL): 0 IV fluids (mL): 400 Urine output (mL): 0 (No reyes to record output) Pathology: none sent (1) antrum x1, 2) sleeve x1, 3) GE junction x2, 4) distal esophagus x2) Condition: stable Disposition: PACU
[2025-10-17 10:15] VITALS: BP 133/78; PULSE 84; RESP 18; TEMP 36.3; O2SAT 98
[2025-10-17 10:30] VITALS: BP 123/81; PULSE 72; RESP 16; TEMP 36.3; O2SAT 97
== END 2025-10-17 11:16 | disposition home or self-care (01) ==
PROVIDERS: PCP Internal Medicine; Visit Provider Surgery
PROC: (CPT 43239; principal; 2025-10-17 09:50)
DX: K21.00 Gastro-esophageal reflux disease with esophagitis, without bleeding (principal); K44.9 Diaphragmatic hernia without obstruction or gangrene; Z98.84 Bariatric surgery status; E66.9 Obesity, unspecified; Z68.38 Body mass index [BMI] 38.0-38.9, adult; K66.0 Peritoneal adhesions (postprocedural) (postinfection); K74.00 Hepatic fibrosis, unspecified; K76.0 Fatty (change of) liver, not elsewhere classified; Z86.19 Personal history of other infectious and parasitic diseases; I10 Essential (primary) hypertension; J45.909 Unspecified asthma, uncomplicated; F10.90 Alcohol use, unspecified, uncomplicated; G47.33 Obstructive sleep apnea (adult) (pediatric); Z79.85 Long-term (current) use of injectable non-insulin antidiabetic drugs; Z79.899 Other long term (current) drug therapy; Z99.89 Dependence on other enabling machines and devices; Z90.49 Acquired absence of other specified parts of digestive tract; Z98.890 Other specified postprocedural states
CPT/HCPCS: 43239; 88305; 88313; 88342; J2003; J2250; J2704

== ENCOUNTER → 2025-10-17 08:03 | Outpatient (BNV) | payer OTHER, SELFPAY | PROVIDERS: PCP Internal Medicine; Visit Provider Surgery | DX: K21.9 Gastro-esophageal reflux disease without esophagitis (principal); K44.9 Diaphragmatic hernia without obstruction or gangrene | CPT/HCPCS: 43239 ==

== ENCOUNTER 2025-10-25 14:12 | Outpatient (AMB) | payer OTHER, SELFPAY ==
--- OUTSIDE RECORDS SUMMARY | 2025-02-28 05:00 | XMS_ITS ---
Author Organization [facility] Address [address] [place] [address] Care Team Providers Care Vocational Nurse Name Role Phone Tedmadelaine Hong Primary Care [...] Orall y Once a day Active Nystatin-Triamcinolone 554233-3.1 UNIT/GM 1 application Externally Twice a day [...] a nonsmoker Section Notes: Works at a [employer] Blood pressure systolic 120 mm Hg 02/29/20 25 Blood pressure diastolic 74 mm Hg 025 Heart Rate 80 /min 02/28/2025 Height 62 in 02/28/2025 Weight 220 lbs 02/28/2025 BMI 40.23 kg/m2 02/28/2025 Encounters Encounter Location Date Provider Diagnosis [facility], [address] [place] [address] 02/28/2025 Hong Patel Acute URI J06.9 ; [...] system. There are likely to be multiple ventilating engineer inaccuracies despite chart review. PLAN OF TREATMENT [...] system. There are likely to be multiple ventilating engineer inaccuracies despite chart review. Next Appt Details Follow Up: as scheduled, Sofia son: Provider Name:Hong burkett, 12/16/2025 07:15:00 AM, [address] [place] [address], [phone], Provider Name:Hong burkett, 12/20/2025 07:15:00 AM, [address] [place] [address], [phone], Progress Notes * Examination Category Sub-Category Detail [...]
--- OUTSIDE RECORDS SUMMARY | 2025-03-10 03:30 | XMS_ITS ---
[facility] Address [address] [place] [address] Care Team Providers Care Cannery Tender Engineer Name Role Phone Hong Patel Primary Care Provider RESULTS Component Value Reference Range Notes IGP, Aptima HPV- Reviewed date:03/15/2025 07:40:54 PM Interpretation: Performing Lab:[facility], [address], [address], [place], Phone - [phone], Director - [facility] Notes/Report: Clinical Information:[id number] No. of containers..01 ThinPrep Vial DIAGNOSIS: NEGATIVE FOR INTRAEPITHELIAL LESION OR MALIGNANCY. THIS SPECIMEN WAS RESCREENED PART OF OUR PATIENT REGISTRAR PROGRAM. Specimen adequacy: Satisfact ory for evaluation. No endocervical component is identified. Clinician provided ICD10: R8 7.612 Performed by: Rahul trotter, Asphalt Tamping Machine Operator (ASCP) QC reviewed by: Alberta Sanon, Asphalt Tamping Machine Operator (ASCP) . . Note: The [...] FOR 90 DAYS for 90 Active Nystatin-Triamcinolone 816329-2.1 UNIT/GM 1 application Externally Twice a day [...] a nonsmoker Section Notes: Works at a [employer] FT VITAL SIGNS Blood pressure systolic 120 mm Hg 03/10/20 25 Blood pressure diastolic 80 mm Hg 025 Heart Rate 76 /min 03/10/2025 Height 62 in 03/10/2025 Weight 223.8 lbs 03/10/2025 BMI 40.93 kg/m2 03/10/2025 Encounters Encounter Location Date Provider Diagnosis Jorge [facility], [address] [place] [address] 03/10/2025 Hong Patel LGSIL on Pap smear o f cervix R87.612 ASSESSMENTS Encounter Date Diagnosis Assessment Notes Treatment Notes Treatment Clinical Notes Section Notes 03/10/2025 LGSIL on Pap smear of cervix (ICD-10 - R87.612) 03/10/2025 Other This chart has been transcribed by a computerized dictation system. There are likely to be multiple cook dessert inaccuracies despite chart review. PLAN OF TREATMENT Treatment Notes Assessment Notes Other This chart has been transcribed by a computerized dictation system. There are likely to be multiple cook dessert inaccuracies despite chart review. Next Appt Details Provider Name:Hong burkett, 12/16/2025 07:15:00 AM, [address] [place], [address], Provider Name:Hong burkett, 12/20/2025 07:15:00 AM, [address] [place], [address], Progress Notes * Examination Category Sub-Category Detail Notes Category Not es General Examination GENERAL APPEARANCE: in no ac algaaciq distress, well developed, well nourished HEART: no [...]
--- OUTSIDE RECORDS SUMMARY | 2025-04-07 02:15 | XMS_ITS ---
[facility] Address [address] [place] [address] Care Team Providers Care Sales Driver Name Role Phone TedHong burkett Primary Care [...] BY MIGUELANGEL TH EVERY DAY Active Nystatin-Triamcinolone 029894-0.1 UNIT/GM 1 application Externally Twice a day [...] a nonsmoker Section Notes: Works at a [employer] FT VITAL SIGNS Blood pressure systolic 118 mm Hg 04/07/20 25 Blood pressure diastolic 72 mm Hg 025 Heart Rate 80 /min 04/07/2025 Height 62 in 04/07/2025 Weight 219.4 lbs 04/07/2025 BMI 40.12 kg/m2 04/07/2025 Encounters Encounter Location Date Provider Diagnosis Jorge [facility], [address] [address] 04/07/2025 Hong Patel LGSIL on Pap smear [...] system. There are likely to be multiple seed service advisor inaccuracies despite chart review. PLAN OF TREATMENT [...] system. There are likely to be multiple seed service advisor inaccuracies despite chart review. Next Appt Details Follow Up: 3 Months, Reason: Follow-up Provider Name:Hong burkett, 12/16/2025 07:15:00 AM, [address] [place] [address], [phone], Provider Name:Hong burkett, 12/20/2025 07:15:00 AM, [address] [place] [address], [phone], Progress Notes * Examination Category Sub-Category Detail Notes Category Not es General Examination GENERAL APPEARANCE: in no ac [place] distress, well developed, well nourished HEAD: normocephalic, [...] of breath. Patient tells me that her aquatic ecologist stopped her pantoprazole but she has still been taking it due to persistent GERD symptoms and a burning sensation in her throat. She does not feel that it is as effective anymore. I will start her on Voquezna 10mg daily. I provided her some samples of the medication to try.
--- OUTSIDE RECORDS SUMMARY | 2025-07-05 08:09 | XMS_ITS ---
Author Organization [facility] Address [address] [facility] [place] [address] Care Team Providers Care Beauty Artist Name Role Phone Hong Patel Primary Care Provider REASON FOR VISIT Cpap Encounters Encounter Location Date Provider Diagnosis [facility] [address] [place] [address] 07/05/20 Hong Patel PLAN OF TREATMENT Next Appt Details Provider Name:Hong burkett, 12/16/2025 07:15:00 AM, [address] [place] [address], [phone], Provider Name:Hong burkett, 12/20/2025 07:15:00 AM, [address] [place] [address], [phone],
--- OUTSIDE RECORDS SUMMARY | 2025-07-08 02:15 | XMS_ITS ---
Author Organization Jorge Fraser Address [address] [place] [address] Care Team Providers Care Bicycle Messenger Name Role Phone TedmadelaineHong Primary Care Provider [...] FOR 90 DAYS for 90 Not-Taking Nystatin-Triamcinolone 254762-1.1 UNIT/GM 1 application Externally Twice a day [...] a nonsmoker Section Notes: Works at a [employer] Blood pressure systolic 110 mm Hg 07/08/20 25 Blood pressure diastolic 72 mm Hg 025 Heart Rate 84 /min 07/08/2025 Height 62 in 07/08/2025 Weight 210 lbs 07/08/2025 BMI 38.41 kg/m2 07/08/2025 Encounters Encounter Location Date Provider Diagnosis [email or web address] [address] 07/08/2025 Hong Patel Essential hypertensi on I10 [...] There are likely to be multiple supervisor nutritional yeast inaccuracies despite chart review. PLAN OF TREATMENT [...] There are likely to be multiple supervisor nutritional yeast inaccuracies despite chart review. Pending Test Test Name Order Date Urinalysis, Complete-[id number] 07/08/2025 Urine Culture, Routine-[id number] 07/08/2025 Next Appt Details Follow Up: 3 Months, Reason: Follow-up [facility] Dr. Patel Provider Name:Hong burkett, 12/16/2025 07:15:00 AM, [address] [place] [address], [phone], Provider Name:Hong burkett, 12/20/2025 07:15:00 AM, [address] [place] [address], [phone], Progress Notes * Examination Category Sub-Category Detail Notes Category Not es General Examination GENERAL APPEARANCE: in no ac [place] distress, well developed, well nourished HEAD: normocephalic, [...] for a follow-up. Patient has joined [employer] and lost about 9 pounds since last [...]
--- OUTSIDE RECORDS SUMMARY | 2025-08-08 06:31 | XMS_ITS ---
Author Organization Jorge Fraser Address [address] [place] [address] Care Team Providers Care Director Of Managed Services Name Role Phone Hong Patel Primary Care Provider [phone] REASON FOR VISIT Clinical for coverage Encounters Encounter Location Date Provider Diagnosis Jorge Fraser [address] [place] [address] 08/08/20 Hong Patel PLAN OF TREATMENT Next Appt Details Provider Name:Hong burkett, 12/16/2025 07:15:00 AM, [address] [place] [address], [phone], Provider Name:Hong burkett, 12/20/2025 07:15:00 AM, [address] [place] [address], [phone],
--- OUTSIDE RECORDS SUMMARY | 2025-10-07 02:30 | XMS_ITS ---
Author Organization [facility] Address [address] [place] [address] Care Team Providers Care Rural Health Consultant Name Role Phone TedmadelaineHong Primary Care Provider REASON FOR VISIT (IN OFFICE), Follow Up [...] a nonsmoker Section Notes: Works at a [employer] VITAL SIGNS Blood pressure systolic 120 mm Hg 10/07/20 25 Blood pressure diastolic 70 mm Hg 025 Heart Rate 72 /min 10/07/2025 Height 62 in 10/07/2025 Weight 214.6 lbs 10/07/2025 BMI 39.25 kg/m2 10/07/2025 Encounters Encounter Location Date Provider Diagnosis Jorge Fraser [address] [place] [address] 10/07/2025 Hong Patel Essential hypertensi on I10 [...] system. There are likely to be multiple machine stonecutter inaccuracies despite chart review. PLAN OF TREATMENT [...] system. There are likely to be multiple machine stonecutter inaccuracies despite chart review. Pending Test Test Name Order Date Urinalysis, Complete-[id number] 10/07/2025 Vitamin D, 65-[id number] 10/07/2025 LP+Non-HDL Cholesterol-[id number] 10/07/2025 TSH+Free [id number] 10/07/2025 Comp. Metabolic Panel [id number] 2024 Vitamin B12 and Folate-[id number] 10/07/2025 CBC with Diff, Platelet, [id number] 05/2025 Next Appt Details Follow Up: 12/14/25, 12/18/25 , Reason: Annual physical exam with Dr. Patel,SPOOL FIXER visit Provider Name:Hong burkett, 12/16/2025 07:15:00 AM, [address] [place] [address], [phone], Provider Name:Hong burkett, 12/20/2025 07:15:00 AM, [address] [place] [address], [phone], Progress Notes * Examination Category Sub-Category Detail Notes Category Not es General Examination GENERAL APPEARANCE: in no ac [place] distress, well developed, well nourished HEAD: normocephalic, [...] palpitation, shortness of breath. She tells me thatToneyquejerria has made a significant change in her acid reflux disease. The medication is very expensive. She is supposed to have an EGD by bariatric surgery who performed her gastric sleeve procedure. I ordered complete left side with him prior to her annual physical exam.
--- OUTSIDE RECORDS SUMMARY | 2025-10-10 05:37 | XMS_ITS ---
Author Organization [facility] Address [address] [place] [address] Care Team Providers Care Motel Front Desk Attendant Name Role Phone TedHong burkett Primary Care Provider REASON FOR VISIT start med MEDICATIONS Medication SIG (Take, Route, Fr equency, Duration) Notes Start Date End Date Status Wegovy 0.25 MG/0.5ML 0.25mg Subcutaneous Once a week for 30 days 10/11/2025 Active Encounters Encounter Location Date [facility] [address] [place] [address] 10/10/2025 Hong Patel Obstructive sleep apnea G47.33 ASSESSMENTS Encounter Date Diagnosis Assessment Notes Treatment Notes Treatment Clinical Notes Section Notes 10/10/2025 Obstructive sleep apnea (ICD-10 - G47.33) PLAN OF TREATMENT Medication Medication Name Sig Start Date Stop Date Notes Zepbound 2.5 MG/0.5ML 2.5 MG Subcutaneous once a week 10/01 Wegovy 0.25 MG/0.5ML 0.25mg Subcutaneous Once a week for 30 days 10/11/2025 Next Appt Details Provider Name:Hong burkett, 12/16/2025 07:15:00 AM, [address] [place] [address], [phone], Provider Name:Hong burkett, 12/20/2025 07:15:00 AM, [address] [place] [address], [phone],
--- OUTSIDE RECORDS SUMMARY | 2025-10-10 10:45 | XMS_ITS ---
Author Organization [facility] Address [address] [place] [address] Care Team Providers Care Sorority Mother Name Role Phone TedHong burkett Primary Care [...] Interpretation Negative Section Notes: Works at a [employer] Encounters Encounter Location Date Provider Diagnosis Jorge Fraser, [address] [place] [address] 10/10/2025 Hong Patel Current moderate epi sode [...] system. There are likely to be multiple physical scientist inaccuracies despite chart review. PLAN OF TREATMENT [...] system. There are likely to be multiple physical scientist inaccuracies despite chart review. Next Appt Details Follow Up: 4 Weeks, Reason: Follow-up [facility] Dr. Patel Provider Name:Hong burkett, 12/16/2025 07:15:00 AM, [address] [place] [address], [phone], Provider Name:Hong burkett, 12/20/2025 07:15:00 AM, [address] [place] [address], [phone], History and Physical Notes * HPI (History [...]
--- OUTSIDE RECORDS SUMMARY | 2025-10-13 05:16 | XMS_ITS ---
Author Organization [facility] Address [address] [place] [address] Care Team Providers Care Machine Coremaker Name Role Phone Hong Patel Primary Care Provider REASON FOR VISIT Message Encounters Encounter Location Date Provider Diagnosis Jorge Fraser [address] [place] [address] 10/13/20 Hong Patel PLAN OF TREATMENT Next Appt Details Provider Name:Hong burkett, 12/16/2025 07:15:00 AM, [address] [place] [address], [phone], Provider Name:Hong burkett, 12/20/2025 07:15:00 AM, [address] [place] [address], [phone],
--- NOTE | 2025-10-25 14:00 | MHC.WMTHER ---
Intake Intake Visit Reasons: VIDEO PO LSG 12/07/20 Allergies No Known Allergies Allergy (Verified 10/19/25 16:14) PFSH Medical History Obesity Liver fibrosis Steatosis, liver Intra-abdominal adhesions Diaphragmatic hernia Arthritis Back pain History of anxiety Positive H. pylori test Degenerative joint disease GERD (gastroesophageal reflux disease) Asthma Depression Sleep apnea with use of continuous positive airway pressure (CPAP) Hypertension Surgical History Hx of tubal ligation Hx of bariatric surgery (12/2020) History of endometrial ablation H/O umbilical hernia repair Morbid obesity Hx of section Hx of cholecystectomy Family History Mother Asthma Hypertension Diabetes HX: breast cancer Father No problems noted. Sister No problems noted. Daughter No problems noted. Son Asthma Social History Household Members: Family Are you a primary animal care service worker to a significant other at home: No Do you presently have visiting nurse or other home services: No Alcohol intake: current Alcohol intake frequency: 0-2 drinks per day Patient Tobacco Use Status: Never used Tobacco service: No Current occupational status: employed Behavioral Health Assessment Weight Management Therapy Therapy Notes Details Patient is a 50-year-old female with a history of weight loss surgery in 2020, who has regained approximately 68 lbs from her lowest post-surgical weight. She is seeking behavioral health support to resume weight loss efforts and manage ongoing emotional challenges related to family issues. The patient reported that following her divorce, she consumed a bottle of wine daily for several weeks, but after deciding to stop drinking, she noticed an increase in both the variety and quantity of foods consumed. Today?s session focused on assessment, rapport building, and identifying her needs to inform a behavioral health treatment plan and provide appropriate support. Presenting Concerns Referral Source WMP-Provider. Reason for referral BH support due to weight gain after weight-loss surgey. Food/Weight/Diet Expectations of change Current meal plan: combination of shakes, bars and 1 meal at day Exercise: walking on her lunch break - current need. Scale: Yes. Communication w/ provider: Texting weekly with dr. Grimaldo with measures and BP cuff. History/Relationship with food In the past years have been engaging in stress eating. History/Relationship with dieting G - 2020 [facility] Self-diets. Social History Family history and relationship , she has 2 adult children. Parents are alive, she is very close to them. She also has a sister 10 years younger, they have a nahum relationship. PT never new her bio-dad, when she was 8 her mom remarried and he adopted her. She has been dating a person 3 months ago. Parental/Familial rn imaging obligations Sofia has a vision disability Developmental history and status Hx of ADD Social support Parents, close group of friends, children. Community support PCP Sikhism/Spirituality None. Cultural/Ethnic information . Legal Involvement and History Current or historical involvement with the legal system? None. Education Highest grade completed HS. Certificate program. 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 No Meaningful activities Crafts, repurposing, bike riding, Financial Situation Describe current financial situation Comfortable Assessment & Plan Assessment & Plan (1) Adjustment disorder: Code(s): F43.20 - Adjustment disorder, unspecified Qualifiers: Adjustment disorder type: with mixed anxiety and depressed mood Qualified Code(s): F43.23 - Adjustment disorder with mixed anxiety and depressed mood Plan Patient will return in approximately six weeks due to provider?s upcoming vacation. At the next appointment, we will continue the assessment and collaboratively develop a treatment plan. Today, the patient was provided with practical habit-building strategies to support resuming healthy meal and exercise routines, with an emphasis on building discipline over relying on motivation for sustained symptom management. Next candelario: 12/06/2025 at 2pm via Telehealth Telehealth Telehealth Telehealth Platform: [employer] Location of provider rendering services: other (Home office. [place], [place]) Location of patient: address on file Patient Identification confirmed using: Name, : Yes Telehealth method: video Patient verbally consented to treatment: Yes Patient verbally consented to billing insurance company: Yes Patient informed of any privacy concerns related to visit: Yes Minutes spent on Phone/Video with Pt.: 60 [place] [address] Tele Psy Diag Eval Patient Type New Diagnoses Adjustment disorder with mixed anxiety and depressed mood F43.23 Adjustment disorder type: with mixed anxiety and depressed mood Time Spent (min) 60
--- OUTSIDE RECORDS SUMMARY | 2025-10-25 18:04 | XMS_ITS | Clinical Summary ---
Author Organization [facility] Address [address] [place] [address] Care Team Providers Care Protective Services Case Worker Name Role Phone Hong Patel MD Primary Care Provider [phone] Allergies No known active allergies Medications Medication [...] age to complete this topic Care Teams Protective Services Case Worker Relationship Specialty Start Date End Date Hong Patel MD [address] [place] [address] [place] [address] PCP - General Internal Medicine 03/02/21
--- OUTSIDE RECORDS SUMMARY | 2025-10-25 18:05 | XMS_ITS | Patient Health Record ---
Author Organization [facility] Address [address] [facility] [place] [address] Care Team Providers Care Historic Site Administrator Name Role Phone Hong Patel MD Primary Care Provider Unavaila Marcos Rojas Unavailable [phone] Reason For Referral No Information Medications Medication [...] Status Risk Notes Problem Plantar fascial fibromatosis (96138156) Plantar fascial fibromatosis (M72.2) Active confirmed Plan Of Treatment No Information Insurance Providers Payer Name Payer Address Payer Phone Subscriber Number Group Number Insured Name Patient Relationship to Insured Coverage Start Date Coverage End Date [employer] ([facility]) [address] [place] [id number] Tone, Nora Self - patient is the insured Medical (General) History Medical History History ICD Code Anxiety Arthritis asthma Back,Hip,and Knee pain Depression Headaches/Migraines High blood pressure Lyme disease Sinus conditions Warts Chicken pox Surgical History Surgery Date(Month/Year) Laphole Adhesion Rem C- section 05/10/1998 02/06/00 D+C 1996 Uterine ablation
--- OUTSIDE RECORDS SUMMARY | 2025-10-25 18:05 | XMS_ITS | Patient Health Record ---
Author Organization [facility] Address [address] [place] [address] Care Team Providers Care Biologist Aide Name Role Phone Hong Patel Primary Care Provider [phone] ALLERGIES No Known Allergies RESULTS Component Value Reference Range Notes IGP, Aptima HPV- Reviewed date:03/15/2025 07:40:54 PM Interpretation: Performing Lab:[facility], [address] [place] [address], Phone - [phone], Director - [facility] Notes/Report: Clinical Information:[id number] No. of containers..01 ThinPrep Vial DIAGNOSIS: EPITHELIAL CELL ABNORMALITY. LOW GRADE SQUAMOUS INTRAEPITHELIAL LESION (LSIL). Specimen adequacy: Satisfact ory for evaluation. No endocervical component is identified. Clinician provided ICD10: Z1 2.4 Performed by: Rahul trotter, O[employer] Driver (ASCP) Electronically signed by: Juan Pablo Leyva [...] high-risk HPV types (16,18,31,33,35,39,45,51,52, 56,58,59,66,68) without differentiation. MM Digital Mammo Screening Reviewed date:10/20/2025 07:10:10 AM Interpretation: Performing Lab: Notes/Report: PROCEDURE: MM Digital Mammo Screening INDICATION: Screening for breast cancer. No known palpable abnormalities. COMPARISON: Comparison is made to prior relevant studies in PACS. TECHNIQUE: Full-field digital CC and MLO 3D tomosynthesis images of both breasts were acquired. Computer-aided detection (CAD) was utilized in the interpretation of this study. DENSITY: There are scattered areas of fibroglandular density. FINDINGS: No suspicious masses, suspicious microcalcifications, or areas of architectural distortion are seen in either breast to suggest malignancy. IMPRESSION: No mammographic evidence of malignancy. RECOMMENDATION: Annual mammographic screening. BI-RADS: 1 (Negative) Lay letter mailed to patient WSN: [id number] Ordering Physician: Hong Patel Dictated By: Josiane Nation MD, Aptima HPV-[id number] Reviewed date:03/15/2025 07:40:54 PM Interpretation: Performing Lab:[facility], [address], [address], [place], Phone - [phone], Director - [facility] Notes/Report: Clinical Information:[id number] No. of containers..01 ThinPrep Vial DIAGNOSIS: NEGATIVE FOR INTRAEPITHELIAL LESION OR MALIGNANCY. THIS SPECIMEN WAS RESCREENED PART OF OUR [employer]SO[employer] MONITOR PROGRAM. Specimen adequacy: Satisfact ory for evaluation. No endocervical component is identified. Clinician provided ICD10: R8 7.612 Performed by: Rahul trotter, [employer] Driver (ASCP) QC reviewed by: Alberta Sanon, O[employer] Driver (ASCP) . . Note: The Pap smear [...] HPV types (16,18,31,33,35,39,45,51,52, 56,58,59,66,68) without differentiation. Urinalysis, Complete-[id number] Reviewed date:12/18/2024 02:02:59 PM Interpretation: [facility]forming [facility], [address] [facility], Phone - [phone], Director - MDJodry Notes/Report: Specific [place] 1.027 1.005-1.030 pH 6.0 5.0-7.5 Urine-Color Yellow [...] seen/Few Yeast Trichomonas Comment CBC With Differential/Platel et-[id number] Reviewed date:12/18/2024 02:02:59 PM Interpretation: Performing Lab:[facility] [place], [address] [place] [address], [place], Phone - [phone], Director - Lucas Notes/Report: WBC 11.9 3.4-10.8 [...] Verifie d by microscopic examination. Vitamin D, 59-Gbxeyci-[id number] Reviewed date:12/18/2024 02:02:59 PM Interpretation: Performing Lab:[facility], [address] [place] [address], Phone - [phone], Director - Lucas Notes/Report: Vitamin D, 25-Hydroxy 39.1 30.0-100.0 ng/mL Vitamin D deficiency has been defined by the [place] of Medicine and an Endocrine Society practice guideline as a level of serum 25-OH vitamin D less than 20 ng/mL (1,2). The Endocrine Society went on to further define vitamin D insufficiency as a level between 21 and 29 ng/mL (2). 1. IOM ([place] of Medicine). 2010. Dietary reference intakes for calcium and D. [place]: The National Academies Press. 2. Gus MF, Sloane [place], Riley LEMUS, et al. Evaluation, treatment, and prevention of vitamin D deficiency: an Endocrine Society clinical practice guideline. JCEM. 2010; 96(7):1911-30. LP+Non-HDL Cholesterol-39354 5 Reviewed date:12/18/2024 02:02:59 PM Interpretation: Performing Lab:[facility], [address] [place] [address], Phone - [phone], Director - Lucas Notes/Report: Cholesterol, Total 159 100-199 mg/dL Triglycerides 85 0-149 mg/dL HDL Cholesterol 43 >39 mg/dL VLDL Cholesterol Juancho 16 5-40 mg/dL LDL Chol Calc ([facility]) 100 0-99 mg/dL LDL Calc Comment: Non-HDL Cholesterol 116 0-129 mg/dL TSH+Free [id number] Reviewed date:12/18/2024 02:02:59 PM Interpretation: Performing Lab:[facility], [address] [place] [address], Phone - [phone], Director - MDJodry Notes/Report: TSH 1.220 0.450-4.500 uIU/mL T4,Free(Direct) 0.97 0.82-1.77 ng/dL Comp. Metabolic Panel (12-3 [id number] Reviewed date:12/18/2024 02:02:59 PM Interpretation: Performing Lab:[facility] Antonio, [address], [place], Phone - [phone], Director - MDJodry Notes/Report: Glucose 112 70-99 [...] Interpretation Negative Section Notes: Works at a [employer] Works at a [employer] Works at a [employer] Works at a [employer] Works at a [employer] Works at a [employer] at a [employer] at a [employer] at a [employer] Works at a [employer] Works at a [employer] Works at a [employer] Works at a [employer] at a [employer] at a [employer] at a [employer] Works at a [employer] Works at a [employer] Works at a [employer] Works at a [employer] Works at a [employer] Works at a [employer] FT PROBLEMS Problem Type ICD Code Onset Dates Problem Status W/U Status Risk SNOMED Code Notes Problem Depression (F32.9) Active confirmed 354 09449 Problem Atrophic vaginitis (N95.2) Active confirmed 65426166 Problem Anxiety (F41.9) Active confirmed 050117 02 Problem Plantar fasciitis (M72.2) Active confirmed 466828498 Problem PTSD (post-traumatic stress disorder) (F43.10) Active confirmed 50725410 Problem ETOH abuse (F10.10) Active confirmed 15 374987 Problem Other obesity due to excess calories (E66.09) Active confirmed 405053753 Problem Cutaneous candidiasis (B37.2) Active confirmed 13552310 Problem Obstructive sleep apnea (G47.33) Active confirmed 45424362 Problem Essential hypertension (I10) Active confirmed 68250395 Problem Gastroesophageal reflux disease without esophagitis (K21.9) Active confirmed Gastroesophagea l reflux disease without esophagitis (937141066) Problem Primary osteoarthritis involving multiple joints (M15.0) Active confirmed 101243199 Problem Mild intermittent asthma without complication (J45.20) Active confirmed Mild intermitte nt asthma (578622335) Problem Chest pain, unspecified chest pain type (R07.9) Active confirmed 88925531 Problem Arthralgia of right temporomandibular joint (M26.621) Active confirmed 72475196 Problem Current moderate episode of major depressive disorder without prior episode (F32.1) Active confirmed 98343174 Problem Adrenal nodule (E27.8) Active confirmed 002440548 Problem Solitary thyroid nodule (E04.1) Active confirmed 368973810 VITAL SIGNS Heart Rate 72 /min 10/07/2025 Blood pressure diastolic 70 mm Hg 10/07/2025 Height 62 in 10/07/2025 Blood pressure systolic 120 mm Hg 10/07/2025 Weight 214.6 lbs 10/07/2025 BMI 39.25 kg/m2 10/07/2025 Encounters Encounter Location Date Provider Diagnosis Jorge Fraser [address] [place] [address] 11/25/2024 Hong Fraser, [address] [place] [address] 11/25/2024 Hong Fraser, [address] [place] [address] 11/25/2024 Hong Patel COVID-[address] [address] 12/13/2024 Hong Patel Annual physical exam Z00.00 ; Current moderate episode of major depressive disorder without prior episode F32.1 and Acute URI J06.[address] [address] 12/17/2024 Hogn Patel Encounter for screen ing for malignant neoplasm of cervix Z12.4 and Encounter for screening mammogram for malignant neoplasm of breast Z12.[address] [address] 12/17/2024 Hong Patel Laboratory examinati on ordered as part of a complete physical examination Z00.[address] [address] 01/04/2025 Hong Patel [address] [address] 01/13/2025 Hong Patel LGSIL on Pap smear [...] to excess calories E66.09 and Anxiety F41.[address] [address] 02/28/2025 Hong Patel Acute URI J06.9 ; Ch est congestion R09.89 ; Vaginal yeast infection B37.31 and Respiratory infection J98.[address] [address] 03/10/2025 Hong Patel LGSIL on Pap smear o f cervix R87.[address] [address] 04/07/2025 Hong Patel LGSIL on Pap smear [...] to excess calories E66.09 and Anxiety F41.[address] [address] 07/05/[address] [address] 07/08/2025 Hong Patel Essential hypertensi on I10 [...] smear of cervix R87.612 and Dysuria R30.[address] [address] 08/08/[address] [address] 10/07/2025 Hong Lynn hypertensi on I10 ; ETOH abuse F10.10 [...] of a complete physical exam (CPE) Z00.[address] [address] 10/10/2025 Hong Ptael Obstructive sleep ap michael G47.33 [facility], [address] [place] [address] 10/10/2025 Hong Patel Current moderate epi sode [...] to excess calories E66.09 and Anxiety F41.9 [facility] [address] [place] [address] 10/13/2025 Hong Patel ASSESSMENTS Encounter Date Diagnosis [...] system. There are likely to be multiple accounts payable payroll coordinator inaccuracies despite chart review. 01/13/2025 Other This chart has been transcribed by a computerized dictation system. There are likely to be multiple accounts payable payroll coordinator inaccuracies despite chart review. 04/07/2025 Other This chart has been transcribed by a computerized dictation system. There are likely to be multiple accounts payable payroll coordinator inaccuracies despite chart review. 07/08/2025 Other This chart has been transcribed by a computerized dictation system. There are likely to be multiple accounts payable payroll coordinator inaccuracies despite chart review. 10/07/2025 Other This chart has been transcribed by a computerized dictation system. There are likely to be multiple accounts payable payroll coordinator inaccuracies despite chart review. 12/17/2024 Other This chart has been transcribed by a computerized dictation system. There are likely to be multiple accounts payable payroll coordinator inaccuracies despite chart review. 03/10/2025 Other This chart has been transcribed by a computerized dictation system. There are likely to be multiple accounts payable payroll coordinator inaccuracies despite chart review. 02/28/2025 Other This chart has been transcribed by a computerized dictation system. There are likely to be multiple accounts payable payroll coordinator inaccuracies despite chart review. 11/25/2024 Other This chart has been transcribed by a computerized dictation system. There are likely to be multiple accounts payable payroll coordinator inaccuracies despite chart review. 10/10/2025 Other This chart has been transcribed by a computerized dictation system. There are likely to be multiple accounts payable payroll coordinator inaccuracies despite chart review. PLAN OF TREATMENT Pending Test Test Name Order Date MRI : Knee, right 12/14/2014 X ray : Knee, right 09/15/2014 X ray : Hand, left 07/18/2016 X ray : Wrist, left 07/18/2016 EMG/NCV ARMS 08/20/2016 HPV, high+low-risk 12/09/2022 HPV, high+low-risk 11/28/2021 HPV, high+low-risk 11/22/2020 HPV, high+low-risk 09/29/2019 HPV, high+low-risk 09/28/2018 MAMMOGRAM, SCREENING 09/29/2019 MAMMOGRAM, SCREENING 09/28/2018 MAMMOGRAM, SCREENING 09/24/2017 MAMMOGRAM, SCREENING 11/28/2021 MAMMOGRAM, SCREENING 12/16/2023 MAMMOGRAM, SCREENING 12/17/2024 MAMMOGRAM, SCREENING 03/25/2013 MAMMOGRAM, SCREENING 06/26/2016 MAMMOGRAM, SCREENING 12/09/2022 Ultrasound : Doppler : Veins Leg Right 0 04/21/2015 Ultrasound : Pelvic Non/OB 07/26/2021 Ultrasound : Thyroid Sonography B-Scan 0 07/26/2021 Ultrasound : Transvaginal 07/26/2021 GUAIAC, SINGLE SPECIMEN 12/09/2022 GUAIAC, SINGLE SPECIMEN 12/16/2023 GUAIAC, SINGLE SPECIMEN 12/17/2024 GUAIAC, SINGLE SPECIMEN 06/26/2016 GUAIAC, SINGLE SPECIMEN 11/28/2021 GUAIAC, SINGLE SPECIMEN 09/29/2019 GUAIAC, SINGLE SPECIMEN 11/22/2020 GUAIAC, SINGLE SPECIMEN 09/24/2017 GUAIAC, SINGLE SPECIMEN 09/28/2018 *EKG 11/12/2012 *EKG 12/06/2015 *EKG 12/08/2012 *SPIROMETRY 11/12/2012 Thin Prep 02/24/2014 Thin Prep 03/25/2013 Thin Prep 02/27/2015 CPAP Titration Study 02/17/2013 EMG 07/31/2015 Drain/Inject Joint/Bursa (MEDIUM) 2018 HEMOGLOBIN A1C 06/24/2016 HEMOGLOBIN A1C 01/12/2015 HEMOGLOBIN A1C 08/12/2017 COMPREHENSIVE METABOLIC PANL 08/12/2017 COMPREHENSIVE METABOLIC PANL 05/03/2016 COMPREHENSIVE METABOLIC PANL 07/10/2020 COMPREHENSIVE METABOLIC PANL 01/12/2015 COMPREHENSIVE METABOLIC PANL 07/26/2021 LIPID PANEL 07/26/2021 LIPID PANEL 01/12/2015 LIPID PANEL 07/10/2020 LIPID PANEL 05/03/2016 LIPID PANEL 08/12/2017 THYROID PANEL 08/12/2017 THYROID PANEL 05/03/2016 THYROID PANEL 01/12/2015 THYROID PANEL 07/10/2020 THYROID PANEL 07/26/2021 FSH 07/26/2021 FSH 07/10/2020 LH 07/10/2020 LH 07/26/2021 URINARY MICROALBUMIN 01/12/2015 25OH VITAMIN D 05/03/2016 25OH VITAMIN D 07/10/2020 25OH VITAMIN D 01/12/2015 25OH VITAMIN D 07/26/2021 25OH VITAMIN D 08/12/2017 COMPLETE CBC WITH DIFF 08/12/2017 COMPLETE CBC WITH DIFF 07/26/2021 COMPLETE CBC WITH DIFF 01/12/2015 COMPLETE CBC WITH DIFF 07/10/2020 COMPLETE CBC WITH DIFF 05/03/2016 URINE DIPSTICK 01/12/2015 COMPLETE URINALYSIS 05/03/2016 COMPLETE URINALYSIS 07/10/2020 COMPLETE URINALYSIS 07/26/2021 COMPLETE URINALYSIS 08/12/2017 CYTOPATHOLOGY (DATABASE REPORTING CONSULTANT) 11/28/2021 CYTOPATHOLOGY (DATABASE REPORTING CONSULTANT) 12/16/2023 CYTOPATHOLOGY (DATABASE REPORTING CONSULTANT) 12/09/2022 CT Head/Brain W/O Contrast 02/05/2022 25OH VITAMIN D 11/06/2022 CBC (COMPLETE BLOOD COUNT) WITH DIFF 05/2022 CHLAMYDIA GC AMP PROBE, URINE 04/17/2022 COMPREHENSIVE METABOLIC PANEL 11/06/2022 HPV, HIGH RISK 12/16/2023 LIPID PANEL 11/06/2022 MICROALBUMIN, URINE 11/06/2022 THYROID PANEL (TSH, FT4) 11/06/2022 URINALYSIS, COMPLETE 11/06/2022 Urinalysis, Complete-[id number] 07/08/2025 Urinalysis, Complete-632434 10/07/2025 Urine Culture, Routine-[id number] 07/08/2025 Vitamin D, 54-Mjlesmm-311828 10/07/2025 LP+Non-HDL Cholesterol-341433 10/07/2025 TSH+Free T4-311817 10/07/2025 Comp. Metabolic Panel [phone] 2024 Vitamin B12 and Folate-913409 10/07/2025 CBC with Diff, Platelet, [id number] 05/2025 Next Appt Details Provider Name:Hong burkett, 12/16/2025 07:15:00 AM, [address] [place] [address], [phone], Provider Name:Hong burkett, 12/20/2025 07:15:00 AM, [address] [place] [address], [phone], Insurance Providers Payer Name Payer Address Payer Phone Subscriber Number Group Number Insured Name Patient Relationship to Insured Coverage Start Date Coverage End Date ORLANDO HASKINS([facility]) [address] [place] [id number] Nora Wayne Self - patient is [...] Date(Month/Year) X2 1997 & 1999 Lap. Shruthi 1999 Umbilical hernia repair 2000 Adhesion removal 2002 Ablation to uterus 10/2005 Vertical sleeve gastrectomy 12/2019 Hospitalization History Reason Date(Month/Year) For above procedures
== END 2025-10-25 15:19 | disposition home or self-care (01) ==
LOC: HO.HBST 14:12
PROVIDERS: PCP Internal Medicine; Visit Provider Counselor Mental Health
DX: F43.23 Adjustment disorder with mixed anxiety and depressed mood (principal)
CPT/HCPCS: 90791